=== PATIENT | female | born 1975 | race Caucasian/White ===

== ENCOUNTER 2022-04-29 13:03 | Emergency (ER) | payer OTHER, SELFPAY ==
[2022-04-29 13:12] VITALS: BP 140/76; PULSE 59; RESP 20; TEMP 36.9; O2SAT 100
--- NOTE | 2022-04-29 13:34 | ED.GENADULT ---
HPI - General Adult General Chief complaint: Headache Stated complaint: Headache x 4 days Time Seen by Provider: 04/29/22 13:34 Source: patient Mode of arrival: ambulatory Limitations: no limitations History of Present Illness HPI narrative: 46 yo F presents with c/o migraine for 4 days. Hx of migraines. Not any worse than usual migraines but OTC meds not helping. Taking migraine meds, ibuprofen and has tried sinus meds just to rule that out but denies congestion, ear pain, cough. Called ER to be treated for migraine but was told they are really busy. +nausea. no photophobia. All systems reviewed and negative except as noted above. Related Data Home Medications Medication Instructions Recorded Confirmed No Home Medications 04/29/22 04/29/22 Allergies Allergy/AdvReac Type Severity Reaction Status Date / Time No Known Allergies Allergy Verified 04/29/22 13:36 Review of Systems Review of Systems: CONSTITUTIONAL: Denies fever, chills, or sweats. EYES: Denies visual changes, redness, or discharge. ENT: Denies rhinorrhea, congestion, sore throat, or otalgia. CARDIOVASCULAR: Denies chest pain, palpitations, or edema. RESPIRATORY: Denies cough or dyspnea. GASTROINTESTINAL: Denies abdominal pain, vomiting, or diarrhea. Reports nausea. GENITOURINARY: Denies dysuria or hematuria. SKIN: Denies rash or itching. MUSCULOSKELETAL: Denies back pain, joint pain, or myalgia. NEUROLOGIC: Reports headache. Denies numbness, or weakness. PSYCHIATRIC: Denies anxiety or depression. All other systems reviewed are negative, except as documented in HPI. PMFSH Comments At time of signature, agree with nursing past medical, surgical, social and family history. There is no relevant family history pertinent to the presenting complaint. Exam Narrative: GENERAL: This is a well-nourished, well-developed patient, in no apparent distress. HEAD: normocephalic, atraumatic. EYES: PERRL. Sclera clear/white. Vision is grossly intact. EARS: External ears normal NOSE: External nose normal THROAT: Mucous membranes moist, posterior pharynx clear. NECK: Neck supple, non-tender without lymphadenopathy, masses or thyromegaly. CARDIOVASCULAR: Regular rate and rhythm without murmurs, gallops, or rubs. RESPIRATORY: Clear to auscultation. Breath sounds equal bilaterally. No wheezes, rales, or rhonchi. SKIN: warm, Dry, intact with no suspicious lesions or rash, good texture and turgor. NEURO: awake, alert, and oriented to person, place and time. There were no obvious focal neurologic abnormalities. EXTREMITIES: No joint tenderness, effusion, or edema noted. Course Course Level of Care: Express Care Visit Vital Signs Vital signs: Vital Signs Temperature 36.9 C 04/29/22 13:12 Pulse Rate 59 L 04/29/22 13:12 Respiratory Rate 04/29/22 13:12 Blood Pressure 140/76 04/29/22 13:12 Pulse Oximetry 100 04/29/22 13:12 Oxygen Delivery Room Air 04/29/22 13:12 Temperature 36.9 C 04/29/22 13:12 Pulse Rate 59 L 04/29/22 13:12 Respiratory Rate 20 04/29/22 13:12 Blood Pressure 140/76 04/29/22 13:12 Pulse Oximetry 100 04/29/22 13:12 Oxygen Delivery Room Air 04/29/22 13:12 reviewed Medical Decision Making MDM Narrative Medical decision making narrative: Patient is aware of diagnosis, understands and agrees to treatment plan. Anticipatory guidance given. Patient agrees to follow-up as directed and is aware of reasons to seek care at the emergency department. Portions of this record may have been created with voice recognition software Vital Signs Vital Signs: Vital Signs Temperature 36.9 C 04/29/22 13:12 Pulse Rate 59 L 04/29/22 13:12 Respiratory Rate 04/29/22 13:12 Blood Pressure 140/76 04/29/22 13:12 Pulse Oximetry 100 04/29/22 13:12 Oxygen Delivery Room Air 04/29/22 13:12 Temperature 36.9 C 04/29/22 13:12 Pulse Rate 59 L 04/29/22 13:12 Respiratory Rate 20 04/29/22 13:1
[2022-04-29] MEDS: KETOROLAC (*BKC) 60 MG/2 ML VIAL IM (13:51)
[2022-04-29] MEDS: ONDANSETRON HCL ODT 4 MG TABLET SUBLINGUAL (13:52)
[2022-04-29] MEDS: diphenhydrAMINE HCl CAP 25 MG CAPSULE 50 MG PO (13:52)
== END 2022-04-29 14:15 | disposition home or self-care (01) ==
PROVIDERS: Emergency Provider Nurse Practitioner Family; PCP Physician Assistant
DX: G43.909 Migraine, unspecified, not intractable, without status migrainosus (principal)
CPT/HCPCS: 96372; 99213; A9270; G0463; J1885

== ENCOUNTER 2022-12-06 09:52 | Emergency (ER) | payer OTHER, SELFPAY ==
--- NOTE | 2022-12-06 09:56 | ED.URI ---
HPI - URI/Sore Throat General Chief Complaint: Upper Respiratory Infection Stated Complaint: sore throat Time Seen by Provider: 12/06/22 10:00 Source: patient Mode of arrival: ambulatory Limitations: no limitations History of Present Illness HPI Narrative: Tayla is a 47-year-old female patient presenting to the clinic today with complaints of a sore throat and nasal congestion x2 days. She reports no fever or chills. No known exposure to anybody with strep. MD elicited complaint: sore throat and nasal congestion Related Data Home Medications Medication Instructions Recorded Confirmed ondansetron HCl 8 mg tablet 8 mg BID PRN Nausea 12/06/22 12/06/22 rizatriptan 10 mg disintegrating 10 mg BID PRN Migraine Headache 12/06/22 12/06/22 tablet sertraline 50 mg tablet 50 mg DAILY 12/06/22 12/06/22 Allergies Allergy/AdvReac Type Severity Reaction Status Date / Time No Known Allergies Allergy Verified 12/06/22 10:12 Review of Systems Review of Systems: Pertinent positives per HPI. Patient denies any fever, chills, rash, headache, visual changes, dizziness, cough, shortness of breath, chest pain, palpitations, nausea, vomiting, diarrhea, constipation, abdominal pain, or any urinary issues. PMFSH Comments At the time of my signature, I reviewed and agree with the nursing past medical, surgical, social, and family history. There is no relevant family history pertinent to the patient complaint. Exam Narrative: General: Well-developed, obese, in no apparent distress Head: Normocephalic, atraumatic Eyes: Pupils equally round and reactive to light bilaterally, EOM intact, sclera and conjunctive clear, no discharge, lids normal Ears: TMs intact and clear, ear canals clear, no drainage, grossly hearing normal. Nose: Nares patent, no discharge, no inflammation, no sinus tenderness. Mouth: Oral pharynx without lesions or masses, good dentition, MMM. Neck: Supple, trachea midline, no enlargement of anterior or posterior cervical nodes, no thyroid masses or goiter palpable. Cardio: Regular rate and rhythm, s1 and s2 normal, no murmur appreciated. Resp: Clear to auscultation bilaterally, no rhonchi, rales, wheezing or rubs Course Course Emergency Course: Portions of this record may have been created with voice recognition software. Level of Care: Express Care Visit Vital Signs Vital signs: Vital Signs Temperature 36.6 C 12/06/22 09:57 Pulse Rate 75 12/06/22 09:57 Respiratory Rate 16 12/06/22 09:57 Blood Pressure 117/73 12/06/22 09:57 Pulse Oximetry 98 12/06/22 09:57 Oxygen Delivery Room Air 12/06/22 09:57 Temperature 36.6 C 12/06/22 09:57 Pulse Rate 75 12/06/22 09:57 Respiratory Rate 16 12/06/22 09:57 Blood Pressure 117/73 12/06/22 09:57 Pulse Oximetry 98 12/06/22 09:57 Oxygen Delivery Room Air 12/06/22 09:57 Vital signs reviewed MDM - URI/Sore Throat MDM Narrative Medical decision making narrative: At the time of visit patient is resting comfortably on the exam table. Strep screen was obtained was positive in the clinic today. Will send in prescription for amoxicillin and supportive measures were discussed with the patient she voiced understanding discharge instructions agrees to treatment plan. Differential Diagnosis Differential diagnosis: Likely upper respiratory infection, otitis media, sinusitis, viral infection, bronchitis, influenza, pharyngitis and other (COVID) Lab Data Labs: Strep Screen Positive Group A Strep *(Reference Range: Negative)* Discharge Plan Discharge Clinical Impression: Strep sore throat Patient Disposition: Home, Self-Care Condition: Stable Instructions: Antibiotic Form, Strep Throat (ED) Additional Instructions: Take prescription medications only as prescribed-amoxicillin Change your toothbrush in 24 hours after initiation of antibiotic Increase fluids and
[2022-12-06 09:57] VITALS: BP 117/73; PULSE 75; RESP 16; TEMP 36.6; O2SAT 98
== END 2022-12-06 10:33 | disposition home or self-care (01) ==
PROVIDERS: Emergency Provider Nurse Practitioner Family; PCP Physician Assistant
DX: J02.0 Streptococcal pharyngitis (principal)
CPT/HCPCS: 87880; 99213; G0463

== ENCOUNTER 2023-11-30 14:09 | Emergency (ER) | payer OTHER, SELFPAY ==
[2023-11-30 14:15] VITALS: BP 137/84; PULSE 72; RESP 16; TEMP 36.4; O2SAT 99
--- NOTE | 2023-11-30 15:07 | ED.GENADULT ---
HPI - General Adult General Chief complaint: Upper Respiratory Infection Stated complaint: Headache/Nausea Time Seen by Provider: 11/30/23 15:00 Source: patient Mode of arrival: ambulatory Limitations: no limitations History of Present Illness HPI narrative: 48 year old female who presents to [facility] care with complaints of sinus congestion, sinus pressure , headache and some nausea for the past month. Patient reports that she has tried Sinex ,Robitussin, sinus spray, Mayra pot, Ibuprofen and Billie Selter for her symptoms without improvement. Patient reports that she does have a history of migraines but this headache feels different. Patient reports that she has Zofran at home that she takes with her migraine medication. Patient reports that she has not called her PCP to reports her symptoms or make appointment. MD complaint: nausea , headache, sinus pressure pain and congestion Onset (ago): month(s) (1) Location: head (frontal headache) Severity scale (1-10): 8 Treatments prior to arrival: other (sinus spray, sinex,Ibuprofen) Related Data Home Medications Medication Instructions Recorded Confirmed amlodipine 5 mg tablet 5 mg PO DAILY 11/30/23 11/30/23 sertraline 100 mg tablet 100 mg PO DAILY 11/30/23 11/30/23 Allergies Allergy/AdvReac Type Severity Reaction Status Date / Time No Known Allergies Allergy Verified 11/30/23 14:39 Review of Systems Review of Systems: CONSTITUTIONAL: Denies malaise, chills, sweats, or fever. EYES: Denies visual changes, redness, or discharge. ENT: Reports rhinorrhea, congestion, sinus pain,no otalgia and no sore throat. CARDIOVASCULAR: Denies chest pain, palpitations, or edema. RESPIRATORY: Reports cough.? Denies dyspnea. GASTROINTESTINAL: Denies abdominal pain,intermittent nausea, no vomiting, diarrhea SKIN: Denies rash or itching. MUSCULOSKELETAL: Denies myalgia. NEUROLOGIC: reports frontal headache. All systems reviewed & are unremarkable except as noted in HPI and below PMFSH Past Medical History Medical History Anxiety and depression Hx of migraines Hypertension Social History Social History (Updated 12/03/23 @ 07:51 by Mariangel Kendall NP) Smoking status: Current every day smoker Tobacco type: e-cigarettes/vaping Gender identity (if verbalized by the patient): Female Comments At time of signature, agree with nursing past medical, surgical, social and family history. There is no relevant family history pertinent to the presenting complaint Exam Narrative: GENERAL: Well-appearing, well-nourished, and in no acute distress. HEAD: Normocephalic EYES: PERRLA, conjunctivae clear ENT: Nares clear, turbinates edematous and erythematous, clear to light yellow discharge, sinus pressure and frontal headache.Mucous membranes moist. TM pearly thomas with dull light reflex bilaterally; no tragal tenderness. Oropharynx erythematous without lesions. Tonsils not enlarged and without exudate, no drooling, no hoarseness, no trismus, uvula midline. NECK: Supple. No lymphadenopathy CHEST: Clear to auscultation, breath sounds equal. No wheezing, rhonchi, rales, or stridor. No respiratory distress, speaks in full sentences.SAO2 99% on room air HEART: Regular rate and rhythm. No murmur heard. SKIN: Warm, dry, no rash. NEURO: Alert and oriented x3. PSYCH: Normal mood and affect Course Course Emergency Course: Patient is aware of diagnosis, understands and agrees to treatment plan.? Anticipatory guidance given.? Patient agrees to follow-up as directed and is aware of reasons to seek care at the emergency department. Portions of this record may have been created with voice recognition software Level of Care: Express Care Visit Vital Signs Vital signs: Vital Signs Temperature 36.4 C L 11/30/23 14:15 Pulse Rate 72 11/30/23 14:15 Respiratory Rate 16 11/30/23 14:15 Blood Pressure 1
== END 2023-11-30 15:35 | disposition home or self-care (01) ==
PROVIDERS: Emergency Provider Registered Nurse; PCP Physician Assistant
DX: J32.9 Chronic sinusitis, unspecified (principal); F17.290 Nicotine dependence, other tobacco product, uncomplicated; I10 Essential (primary) hypertension; F41.9 Anxiety disorder, unspecified; F32.A Depression, unspecified
CPT/HCPCS: 99213; G0463

== ENCOUNTER 2024-01-11 13:19 | Emergency (ER) | payer OTHER, SELFPAY ==
[2024-01-11 13:28] VITALS: BP 140/90; RESP 16; TEMP 36.7; O2SAT 97
--- NOTE | 2024-01-11 13:33 | ED.URI ---
HPI - URI/Sore Throat General Chief Complaint: Upper Respiratory Infection Stated Complaint: Sore Throat History of Present Illness HPI Narrative: Patient presents with sore throat. No trouble swallowing no drooling patient reports fever but denies any body aches. Does have nasal congestion has not taking anything [id number]. Related Data Home Medications Medication Instructions Recorded Confirmed amlodipine 5 mg tablet 5 mg PO DAILY 11/30/23 11/30/23 sertraline 100 mg tablet 100 mg PO DAILY 11/30/23 11/30/23 Allergies Allergy/AdvReac Type Severity Reaction Status Date / Time No Known Allergies Allergy Verified 01/11/24 13:27 Review of Systems Review of Systems: CONSTITUTIONAL: Denies chills, or sweats. Reports fever and generalized body aches EYES: Denies visual changes, redness, or discharge. ENT: Denies otalgia. Reports nasal congestion runny nose and sore throat CARDIOVASCULAR: Denies chest pain, palpitations, or edema. RESPIRATORY: Denies dyspnea. Reports occasional cough GASTROINTESTINAL: Denies abdominal pain, nausea, vomiting, or diarrhea. GENITOURINARY: Denies dysuria or hematuria. SKIN: Denies rash or itching. MUSCULOSKELETAL: Denies back pain, joint pain, or myalgia. Reports generalized body aches NEUROLOGIC: Denies headache, numbness, or weakness. PSYCHIATRIC: Denies anxiety or depression. [facility] Past Medical History Medical History Anxiety and depression Hx of migraines Hypertension Social History Social History (Updated 12/03/23 @ 07:51 by Mariangel Kendall NP) Smoking status: Current every day smoker Tobacco type: e-cigarettes/vaping Gender identity (if verbalized by the patient): Female Comments At time of signature, agree with nursing past medical, surgical, social and family history. There is no relevant family history pertinent to the presenting complaint Exam Narrative: The patient is a well-developed, well-nourished in no acute distress. SKIN: Skin is warm and dry without erythema, swelling or exudate. There is good turgor. No tenting. HEAD: Atraumatic. Normocephalic. No temporal or scalp tenderness. EYES: Moist and bright. Sclera and conjunctivae normal. No discharge. PERRLA. Extraocular motions intact. Gross visual acuity intact. EARS: Pinna is normal shape and contour. Clear external auditory canals. TM pearly lee with good cone of light, no erythema or suppuration. Bilateral cerumen noted no gross hearing deficit. NOSE: pink, moist mucosa with good air movement. Clear rhinorrhea without nasal flaring. Septum midline. Mouth: moist mucous membranes. THROAT; mild erythema noted to posterior oropharynx with moderate postnasal drainage. Without exudate or ulceration.. Uvula midline. Normal movement of soft palate. Mild pharyngeal erythema no trismus able to open mouth fully no exudate NECK: Supple and nontender with full range of motion without discomfort. No meningeal signs. LUNGS: Equal and bilateral breath sounds without wheezes, rales or rhonchi. CHEST: The chest wall is without retractions or use of accessory muscles. HEART: Has a regular rate and rhythm without murmur, gallops, click or rub. ABDOMEN: Soft, nontender with positive active bowel sounds. No rebound tenderness. EXTREMITIES: Without cyanosis, clubbing or edema. Equal 2+ distal pulses and 2 second capillary refill noted. NEUROLOGIC: alert, active, . The patient moves all extremities with normal muscle strength. Normal muscle tone is noted. Normal coordination is noted. NO focal neurological findings noted. Course Course Level of Care: Express Care Visit Discharge Plan Discharge Clinical Impression: Pharyngitis, Strep pharyngitis Patient Disposition: Home, Self-Care Condition: Stable Instructions: Antibiotic Form, Strep Throat (DC) Additional Instructions: .strep #1 Please take your antibiotic completely #2 Wash your hands o
== END 2024-01-11 13:58 | disposition home or self-care (01) ==
PROVIDERS: Emergency Provider Nurse Practitioner Family; PCP Physician Assistant
DX: J02.0 Streptococcal pharyngitis (principal); I10 Essential (primary) hypertension; F41.9 Anxiety disorder, unspecified; F32.A Depression, unspecified; F17.290 Nicotine dependence, other tobacco product, uncomplicated
CPT/HCPCS: 87880; 99213; G0463

== ENCOUNTER 2024-10-26 10:17 | Emergency (ER) | payer OTHER, SELFPAY ==
--- NOTE | ~2024-10-26 | XR_ITS ---
Clinical Indication: Cough PA and lateral views of the chest: Comparison: None Findings: The lungs are clear, without evidence of focal consolidation or pleural effusion. Cardiome diastinal silhouette is within normal limits. Bones and soft tissues are unremarkable. Impression: Normal chest. Reviewed, dictated and finalized at location . [facility] Impression: Normal chest.
[2024-10-26 10:22] VITALS: BP 105/64; PULSE 76; RESP 20; TEMP 36.1; O2SAT 98
[2024-10-26 10:54] LABS: EDCOVIDSCREEN Negative (Negative); EDINFLUASCREEN Negative (Negative); EDINFLUBSCREEN Negative (Negative)
--- NOTE | 2024-10-26 11:19 | ED.GENADULT ---
HPI - General Adult General Chief complaint: Upper Respiratory Infection Stated complaint: Congestion/Chest Congestion/Cough Source: patient Mode of arrival: ambulatory Limitations: no limitations History of Present Illness HPI narrative: Patient presents for evaluation of sick symptoms for the last 11 days. Symptoms include sinus congestion, cough, chest congestion, GUERRERO, wheezing and sore throat that she attributes to coughing. No fever, chills, nausea, vomiting or diarrhea. She does vape. Her grandchildren have been sick as of late. She has tried mucinex, dayquil and nyquil for her symptoms but symptoms persist/ Related Data Home Medications ?Medication ?Instructions ?Recorded ?Confirmed ?Last Taken ?Type amlodipine 5 mg tablet 5 mg PO DAILY 11/30/23 11/30/23 Unknown History sertraline 100 mg tablet 100 mg PO DAILY 11/30/23 11/30/23 Unknown History Allergies Allergy/AdvReac Type Severity Reaction Status Date / Time No Known Allergies Allergy Verified 10/26/24 10:40 Review of Systems Review of Systems: CONSTITUTIONAL: Denies fever, chills, or sweats. EYES: Denies visual changes, redness, or discharge. ENT: Reports sinus congestion, and sore throat that she attributes to coughing. Denies otalgia. CARDIOVASCULAR: Denies chest pain, palpitations, or edema. RESPIRATORY: Reports cough, wheezing, dyspnea on exertion. GASTROINTESTINAL: Denies abdominal pain, nausea, vomiting, or diarrhea. GENITOURINARY: Denies dysuria or hematuria. SKIN: Denies rash or itching. MUSCULOSKELETAL: Denies back pain, joint pain, or myalgia. NEUROLOGIC: Denies headache, numbness, dizziness, or weakness. PSYCHIATRIC: Denies anxiety or depression. [facility] Past Medical History Medical History Hypertension Hx of migraines Anxiety and depression Surgical History Surgical History No pertinent past surgical history Family History Family History Mother Family history non-contributory Social History Social History Smoking status: Current every day smoker Tobacco type: e-cigarettes/vaping Living arrangements: with family Gender identity (if verbalized by the patient): Female Sexual Orientation (if Verbalized by the Patient): Straight or Heterosexual Spiritual care concerns: No Exam Narrative: GENERAL: Well-appearing, well-nourished, and in no acute distress. HEAD: Normocephalic, atraumatic. EYES: PERRLA and EOMI. ENT: Nares clear, no rhinorrhea or epistaxis. Mucous membranes moist. Oropharynx without tonsillar hypertrophy exudate or other lesions. Bilateral TMs pearly thomas nonbulging NECK: Supple. No adenopathy or masses. No carotid bruits or JVD CHEST: Rales noted bilaterally. Cough present on exam. HEART: Regular rate and rhythm. No murmur heard. Normal peripheral pulses. ABDOMEN: Soft, nontender, nondistended, normal active bowel sounds. EXTREMITIES: Normal range of motion. No edema. SKIN: Warm, dry, no rash. NEURO: No focal deficits. Alert and oriented x3. PSYCH: Normal mood and affect. Course Course Emergency Course: This is a 49-year-old female who presented for evaluation of sick symptoms. COVID and influenza negative. Chest x-ray normal. Based upon duration of symptoms, patient meets criteria for bacterial sinusitis. Will discharge with Augmentin. Prednisone and albuterol for wheezing. Follow-up with primary provider. Go to the ER for worsening symptoms. Patient in agreement with plan care. Level of Care: Express Care Visit Vital Signs Vital signs: Vital Signs Temperature 36.1 C L 10/26/24 10:22 Pulse Rate 76 10/26/24 10:22 Respiratory Rate 20 10/26/24 10:22 Blood Pressure 105/64 10/26/24 10:22 Pulse Oximetry 98 10/26/24 10:22 Oxygen Delivery Room Air 10/26/24 10:22 Temperature 36.1 C L 10/26/24 10:22 Pulse Rate 76 10/26/24 10:22 Respiratory Rate 20 10/26/24 10:22 Blood Pressure 105/64 10/26/24 10:22 Pulse Oximetry 98 10/26/24 10:22 Oxygen Delivery Room Air 10/26/24 10:22 Medical Decision Making Vital Signs Vital Signs: Vital Signs Temperature 36.1 C L 10/26/24 10:22 Pulse Rate 76 12/31/24 10:22 Respiratory Rate 20 10/26/24 10:22 Blood Pressure 105/64 10/26/24 10:22 Pulse Oximetry 98 10/26/24 10:22 Oxygen Delivery Room Air 10/26/24 10:22 Temperature 36.1 C L 10/26/24 10:22 Pulse Rate 76 10/26/24 10:22 Respiratory Rate 20 10/26/24 10:22 Blood Pressure 105/64 10/26/24 10:22 Pulse Oximetry 98 10/26/24 10:22 Oxygen Delivery Room Air 10/26/24 10:22 Lab Data Labs: Lab Results 10/26/24 Range/Units 10:30 POC Influenza A Ag Negative (Negative) POC Influenza B Ag Negative (Negative) POC SARS CoV-2 Ag Negative (Negative) Discharge Plan Discharge Clinical Impression: Sinusitis Patient Disposition: Home, Self-Care Condition: Stable Instructions: Antibiotic Form, Sinusitis (ED) Patient Language: Guyanese Prescriptions: New amoxicillin-pot clavulanate 875-125 mg tablet 1 tablet PO Q12H Qty: 20 0RF albuterol sulfate 90 mcg/actuation HFA aerosol inhaler 2 puff inhalation QID PRN (Reason: shortness of breath or wheezing) Qty: 8.5 0RF prednisone 50 mg tablet 50 mg PO DAILY Qty: 5 0RF No Action amlodipine 5 mg tablet 5 mg PO DAILY sertraline 100 mg tablet 100 mg PO DAILY Follow-up/Referrals: Kleber Van MD [Physician] - Time of Disposition: 11:42
--- OUTSIDE RECORDS SUMMARY | 2024-11-02 22:38 | XMS_ITS | Clinical Summary ---
Author Organization [facility] Address [address] [place] [address] Phone Care Team Providers Care Hand I Blocker Name Role Phone Grecia Solis APRN, LEYDI Primary Care P rovider Tonja Yoo APRN, LEYDI Unavailable Allergies No known active allergies Medications lisinopril-hydroC HLOROthiazide (PRINZIDE, ZESTORETIC) 10-12.5 MG TabletIndications :Essential hypertension Take 1 Tablet by mouth daily. 90 Tablet 3 4 Active Vitamin D-Vitamin K (VITAMIN K2-VITAMIN D3 PO) Take by mouth daily. Active sertraline (ZOLOFT) 100 MG TabletIndications :Anxiety and depression Take 0.5 Tablets by mouth daily. 90 Tablet 3 4 Active hydrOXYzine (ATARAX) 25 MG TabletIndications :Primary insomnia TAKE 1 TABLET BY MOUTH EVERY NIGHT NEEDED FOR SLEEP 90 Tablet 1 4 Active amLODIPine (NORVASC) 10 MG TabletIndications :Essential hypertension Take 1 Tablet by mouth daily. 90 Tablet 1 4 Active Active Problems Problem Noted Date Diagnosed Date Subacute cough 07/13/2024 Daytime sleepiness 04/09/2024 Suspected sleep apnea 04/09/2024 Restless sleeper 04/09/2024 Family History Medical History Relation Name Comments Hypertension Paternal Grandmother Relation Name Status Comments Paternal Grandmother Social History Tobacco Use Types Packs/Day Years Used Date Smoking Tobacco: Former Cigarettes Smokeless Tobacco: Never Tobacco Cessation:Counseling Given: Not Answered Alcohol Use Standard Drinks/Week Comments Yes 0 (1 standard drink = 0.6 oz pur e alcohol) Rarely [facility] Utilities Answer Date Recorded In the past 12 months has th e electric, gas, oil, or water company threatened to shut off services in your home? No 02/08/2024 Social Connection and Isolat ion Panel [NHANES] Answer Date Recorded In a typical week, how many times do you talk on the phone with family, friends, or neighbors? More than three times a week 02/08/2024 How often do you get togethe r with friends or relatives? Twice a week 02/08/2024 How often do you attend [facility] or mandaeism services? Never 02/08/2024 Do you belong to any clubs o r organizations such as mosque groups, unions, fraternal or athletic groups, or school groups? No 02/08/2024 How often do you attend meet ings of the clubs or organizations you belong to? Patient declined 02/08/2024 Are you , , di vorced, , never , or living with a partner? Patient declined 02/08/2024 AUDIT-C Answer Date Recorded Q1: How often do you have a drink containing alc ohol? Monthly or less 02/08/2024 Q2: How many drinks containi ng alcohol do you have on a typical day when you are drinking? 1 or 2 02/08/2024 Q3: How often do you have si x or more drinks on one occasion? Less than monthly 02/08/2024 Overall Financial Resource Strain (CARDIA) Answe r Date Recorded How hard is it for you to pa y for the very basics like food, housing, medical care, and heating? Somewhat hard 02/08/2024 [facility] - Occupational Stress Questionnaire Answer Date Recorded Do you feel stress - tense, restless, nervous, or anxious, or unable to sleep at night because your mind is troubled all the time - these days? Very much 02/08/2024 Exercise Vital Sign Answer Date Recorde d On average, how many days pe r week do you engage in moderate to strenuous exercise (like a brisk walk)? 4 days 02/08/2024 On average, how many minutes do you engage in exercise at this level? 30 min 02/08/2024 Hunger Vital Sign Answer Date Recorded Within the past 12 months, y ou worried that your food would run out before you got the money to buy more. Patient declined Within the past 12 months, t he food you bought just didn't last and you didn't have money to get more. Patient declined PRAPARE - Transportation Answer Date Re corded In the past 12 months, has l ack of transportation kept you from medical appointments or from getting medications? No 01/25 In the past 12 months, has l ack of transportation kept you from meetings, work, or from getting things needed for daily living? No 02/08/2024 Housing Stability Vital Sign Answer Richar e Recorded In the last 12 months, was t here a time when you were not able to pay the mortgage or rent on time? No 02/08/2024 In the last 12 months, how many places have you lived? 1 02/08/2024 In the last 12 months, was t here a time when you did not have a steady place to sleep or slept in a fdc (including now)? No 02/08/2024 Comments No Sex and Gender Information Value Date Recorded Sex Assigned at Not on file Legal Sex Female 7:18 PM CDT Gender Identity Not on file Sexual Orientation Not on file Last Filed Vital Signs Vital Sign Reading Time Taken Comments Blood Pressure 96/76 07/13/2024 4:06 PM CDT Pulse 65 07/13/2024 4:06 PM CDT Temperature 36.7 ??C (98.1 ??F) 07/13/2024 4:06 PM CD T Respiratory Rate 20 07/13/2024 4:06 PM CDT Oxygen Saturation 97% 07/13/2024 4:06 PM CDT Inhaled Oxygen Concentration - - Weight 135.6 kg (299 lb) 07/13/2024 4:06 PM CDT Height 175.3 cm (5' 9 ) 07/13/2024 4:06 PM CDT Body Mass Index 44.15 07/13/2024 4:06 PM CDT Plan of Treatment Upcoming Encounters Date Type Department Care Team (Late st Contact Info) Description 11/08/2024 3:15 PM PRINCIPAL PLANNER Office Visit [facility] - [place] [address] [place] [address] Grecia Solis APRN, GMAT TUTOR [address] [place] [address] Health Maintenance Due Date Last Done Comments TdaP Immunization 1973 Hepatitis B Immunization (1 of 3 - 19+ 3-dose series) 1992 HPV/Cotest 2003 Colonoscopy 2018 Immunochemical Fecal Occult Blood 2023 Pneumococcal Immunization (5 0+ years) (1 of 1 - PCV) 2023 Zoster Immunization (1 of 2) 2023 Influenza Immunization (#1) 2024 SARS-COV-2 Immunization ( - season) 2024 Mammogram 03/05/2026 03/05/2024, 02/10/2024 Cologuard 02/24/2027 02/25/2024 Colorectal Cancer Screening 02/24/2027 Cervical Cancer Screening (CCS) 04/27/2027 Pap Smear 04/27/2027 04/27/2024 Respiratory Syncytial Virus (RSV) Immunization (Adult) (1 - 1-dose 75+ series) 2048 Discussion re Starting/Frequency of Mammograms Discontinued 03/05/2024, 02/10/2024 Hepatitis C Virus (HCV) Screening Completed 03/12/2024 Meningococcal Immunization (ACWY) Aged Out No longer eligible based on patient's age to complete this topic Rotavirus Immunization Aged Out No lo nger eligible based on patient's age to complete this topic Procedures Procedure Name Priority Date/Time Associated Diagnosis Comments PATHOLOGY CYTOLOGY FIRE CONTROL TECHNICIAN G Routine 04/27/2024 3:48 PM CDT Encounter for well woman exam with routine gynecological exam HEPATITIS C ANTIBODY Routine 03/12/2024 7:46 AM CDT Preventative health care (Adult) ITALO DIAG BILATERAL DIGITAL W CAD W RAJI Routine 03/05/2024 1:48 PM CDT Abnormal mammogram COLOGUARD Routine 02/25/2024 5:30 PM CDT Colon cancer screening from Last 3 Months or Most Recently Relevant to Health Maintenance Results * PATHOLOGY CYTOLOGY FIRE CONTROL TECHNICIAN G (04/27/2024 3:48 PM CDT) SPECIMEN ADEQUACY Unsatisfactory for evaluation due to scant squamous component. Endocervical/transf ormation zone component is absent. 05/06/2024 4:[address] [facility] DESCRIPTIVE DIAGNOSIS UNSATISFACTORY FOR INTERPRETATION. 05/06/2024 4:[address] [facility] Automated Examination Analysis of this sample has been assisted by an automated imaging and review system ([employer] System, [employer] [facility], [place], [place]). This case is further evaluated and finalized by a fisher seal and/or pathologist. 05/06/2024 4:[address] [facility] Disclaimer The PAP smear is a screening test designed to detect cancerous or precancerous cells of the uterine cervix. It is one of the best means available for detection of cervical cancer but still carries an inherent false-negative rate. The consequences of a false-negative PAP result can be minimized by adhering to current screening guidelines. The following are general guidelines recommended by the ACS, ASCP, ASCCP, and ACOG: PAP testing is recommended every three years for women 21-29, Co-Testing , a PAP test in conjunction with an HPV (Human Papillomavirus) test for women ages 30-65, and no PAP or HPV testing for women under the age of 21 or older than 65 unless clinically indicated. 05/06/2024 4:[address] [facility] Case Report Gynecologic Cytology Report ? Case: [id number] ? Authorizing Provider: ??Richard Ferguson MD ?Collected: ? 04/27/2024 03:48 PM ? Ordering Location: ? [facility] - ?Received: ?04/27/2024 03:48 PM ? Obstetrics & Gynecology - ? Stan ? First Screen: ?Patel, Julia ? Rescreen: ?Arely Holt N ? Specimen: ?TP Screen, Cervix/Endocervix ? 05/06/2024 4:05 PM CDT [facility] Other (Cervix/Endocerv ix) Non-Phlebotomy Collection / Unknown 04/27/2024 3:48 PM CDT 04/27/2024 3:48 PM CDT us Richard Ferguson MD PATHOLOGY/CYTOLOGY ORDERABLES Final Result Performing Organization Address [facility] de Phone Number [facility] [address] [place] [address], [place] * HEPATITIS C ANTIBODY (03/12/2024 7:46 AM CDT) hepatitis C antibody 0.10 <1 S/CO 03/12/2024 9:[address] [facility] Comment: Signal/Cutoff ratio ??< 0.79 is Nondetected Signal/Cutoff ratio 0.80-0.99 is Grayzone Signal/Cutoff ratio > 0.99 is Detected Supplemental assays are recommended if signal/cutoff ratio is >/=1.00. ??Signal/cutoff ratio result >/= 5.00 is 97% predictive of positivity for recombinant immunoblot assay (RIBA) and will be reported to the [place] Department of Public Health as required. Blood Venipuncture / Unknown 03/12/2024 7:46 AM CDT 03/12/2024 7:46 AM CDT Grecia Solis APRN, GMAT TUTOR CHEMISTRY ORDER ESTELLA Final Result Performing Organization Address [facility] de Phone Number [facility] [address] [place] [address], [place] * ITALO DIAG BILATERAL DIGITAL W CAD W RAJI (03/05/2024 1:48 PM CDT) Anatomical Region Laterality Modality breast Bilateral Mammography 03/05/2024 12:5 9 PM CDT Narrative 03/05/2024 2:45 PM CDT - ITALO DIAG BILATERAL DIGITAL W CAD W RAJI - ITALO US BREAST LIMITED ARVIN BILATERAL DIGITAL DIAGNOSTIC MAMMOGRAM 3D/2D WITH CAD WITH MEDIOLATERAL MEDIOLATERAL OBLIQUE CRANIOCAUDAL SPOT COMPRESSION AND TARGETED BILATERAL ULTRASOUND: 03/05/2024 The study was acquired using digital technology and interpreted from soft copy. Current study was also evaluated with ICAD version 7.2. 2D digital mammographic views, as well as 3D digital tomosynthesis were performed in the CC and MLO projections. ?? CLINICAL: Diagnostic study. Patient returns for additional imaging over suspected masses in both breasts. Sister with premenopausal breast cancer. ?? COMPARISONS: Comparison is made to exam dated: ??02/10/[address] [facility]. ?? BREAST TISSUE:There are scattered fibroglandular densities in both breasts. ?? FINDINGS: ?? DIAGNOSTIC BILATERAL MAMMOGRAM Spot compression cc, spot compression MLO and full field 90 degree tomographic images were performed. ??The focal asymmetries noted bilaterally are confirmed on additional views without spiculation or suspicious associated microcalcifications. ?? TARGETED BILATERAL BREAST ULTRASOUND Targeted RIGHT breast ultrasound was performed in the region of interest. ??At the 5 o'clock position 3 cm from the nipple is a lobulated circumscribed lesion with a hyperechoic notch. ??There is a small round nodule adjacent or abutting the main lesion. ??This has the appearance of 2 adjacent intramammary lymph nodes. ??The more dominant lesion measures ??8 mm x 5 mm x 4 mm. ??No definite color flow is documented. ??This correlates with the mammographic finding in size shape and position and is probably benign. Targeted LEFT breast ultrasound was performed in the region of interest. ??At the 7 o'clock position 4 cm from the nipple is an oval hypoechoic lesion. ??This measures 6 mm x 4 mm x 3 mm. ??It is parallel with the skin. ??There may be posterior acoustical enhancement. ??There is no evidence of color flow. ??This correlates with the mammographic finding. ??This may represent a collapsing cyst or dilated duct and is probably benign. ?? IMPRESSION: OVERALL STUDY BIRADS: 3 PROBABLY BENIGN Bilateral breast lesions are probably benign. A follow-up mammogram and an ultrasound in 6 months is recommended to demonstrate stability. ?? The results and recommendations were discussed with the patient. Electronically signed by: Abimbola White M.D. ? ab/:03/05/2024 14:28:59 ?? Grand Jury Deputy Sheriff(s): Leigha ?? Charles, RT(R)(M), [facility]; Gabbi ??LOY Gonzales, [facility] letter sent: Birad 3 Followup ?? Reading location: [facility] STUDY BIRADS: 3 Probably benign Procedure Note Abimbola White MD - 03/05/2024 - ITALO DIAG BILATERAL DIGITAL W CAD W RAJI - ITALO US BREAST LIMITED ARVIN BILATERAL DIGITAL DIAGNOSTIC MAMMOGRAM 3D/2D WITH CAD WITH MEDIOLATERAL MEDIOLATERAL OBLIQUE CRANIOCAUDAL SPOT COMPRESSION AND TARGETED BILATERAL ULTRASOUND: 03/05/2024 The study was acquired using digital technology and interpreted from soft copy. Current study was also evaluated with Simplilearn version 7.2. 2D digital mammographic views, as well as 3D digital tomosynthesis were performed in the CC and MLO projections. CLINICAL: Diagnostic study. Patient returns for additional imaging over suspected masses in both breasts. Sister with premenopausal breast cancer. COMPARISONS: Comparison is made to exam dated: 02/10/2024 [facility]. BREAST TISSUE:There are scattered fibroglandular densities in both breasts. FINDINGS: DIAGNOSTIC BILATERAL MAMMOGRAM Spot compression cc, spot compression MLO and full field 90 degree tomographic images were performed. The focal asymmetries noted bilaterally are confirmed on additional views without spiculation or suspicious associated microcalcifications. TARGETED BILATERAL BREAST ULTRASOUND Targeted RIGHT breast ultrasound was performed in the region of interest. At the 5 o'clock position 3 cm from the nipple is a lobulated circumscribed lesion with a hyperechoic notch. There is a small round nodule adjacent or abutting the main lesion. This has the appearance of 2 adjacent intramammary lymph nodes. The more dominant lesion measures 8 mm x 5 mm x 4 mm. No definite color flow is documented. This correlates with the mammographic finding in size shape and position and is probably benign. Targeted LEFT breast ultrasound was performed in the region of interest. At the 7 o'clock position 4 cm from the nipple is an oval hypoechoic lesion. This measures 6 mm x 4 mm x 3 mm. It is parallel with the skin. There may be posterior acoustical enhancement. There is no evidence of color flow. This correlates with the mammographic finding. This may represent a collapsing cyst or dilated duct and is probably benign. IMPRESSION: OVERALL STUDY BIRADS: 3 PROBABLY BENIGN Bilateral breast lesions are probably benign. A follow-up mammogram and an ultrasound in 6 months is recommended to demonstrate stability. The results and recommendations were discussed with the patient. Electronically signed by: Abimbola White M.D. ab/:03/05/2024 14:28:59 Grand Jury Deputy Sheriff(s): Leigha Soto, (R)(M), [facility]; Gabbi Gonzales RDMS OBBRIANNA, [facility] letter sent: Birad 3 Followup Reading location: [facility] OVERALL STUDY BIRADS: 3 Probably benign Grecia Solis APRN, CNP IM MAMMO ORDER ESTELLA Final Result * COLOGUARD (02/25/2024 5:30 PM CDT) Cologuard Negative Negative [facility] Comment: NEGATIVE TEST RESULT. A negative Cologuard result indicates a low likelihood that a colorectal cancer (CRC) or advanced adenoma (adenomatous polyps with more advanced pre-malignant features) ??is present. The chance that a person with a negative Cologuard test has a colorectal cancer is less than 1 in 1500 (negative predictive value >99.9%) or has an ??advanced adenoma is less than ?? 5.3% (negative predictive value 94.7%). These data are based on a prospective cross-sectional study of 10,000 individuals at average risk for colorectal cancer who were screened with both Cologuard and colonoscopy. (Goran Sanders al, N Engl J Med 2014;370(14):0378-0182) The normal value (reference range) for this assay is negative. COLOGUARD RE-SCREENING RECOMMENDATION: Periodic colorectal cancer screening is an important part of preventive healthcare for asymptomatic individuals at average risk for colorectal cancer. ??Following a negative Cologuard result, the [place] [employer] and U.S. Multi-Society Task Force screening guidelines recommend a Cologuard re-screening interval of 3 years. References: [place] [employer] Guideline for Colorectal Cancer Screening: https://www.cancer.org/cancer/rlvdg-rbugfw-uovhes/ynflxozdq-fhnextfqf-hvllcvi/ acs-recommendations.html.; Eric DK, Caroline CR, Afshin WangK, Colorectal Cancer Screening: Recommendations for Physicians and Patients from the U.S. Multi-Society Task Force on Colorectal Cancer Screening , Am J Gastroenterology 2017; 112:1045-2867. TEST DESCRIPTION: Composite algorithmic analysis of stool DNA-biomarkers with hemoglobin immunoassay. ?? Quantitative values of individual biomarkers are not reportable and are not associated with individual biomarker result reference ranges. Cologuard is intended for colorectal cancer screening of adults of either sex, 45 years or older, who are at average-risk for colorectal cancer (CRC). Cologuard has been approved for use by the U.S. FDA. The performance of Cologuard was established in a cross sectional study of average-risk adults aged 50-84. Cologuard performance in patients ages 45 to 49 years was estimated by sub-group analysis of near-age groups. Colonoscopies performed for a positive result may find as the most clinically significant lesion: colorectal cancer [4.0%], advanced adenoma (including sessile serrated polyps greater than or equal to 1cm diameter) [20%] or non- advanced adenoma [31%]; or no colorectal neoplasia [45%]. These estimates are derived from a prospective cross-sectional screening study of 10,000 individuals at average risk for colorectal cancer who were screened with both Cologuard and colonoscopy. (Goran Sanders al, N Engl J Med 2014;370(14):8577-7644.) Cologuard may produce a false negative or false positive result (no colorectal cancer or precancerous polyp present at colonoscopy follow up). A negative Cologuard test result does not guarantee the absence of CRC or advanced adenoma (pre-cancer). The current Cologuard screening interval is every 3 years. ([place] [employer] and U.S. Multi-Society Task Force). Cologuard performance data in a 10,000 patient pivotal study using colonoscopy as the reference method can be accessed at the following location: www.Lift/results. Additional description of the Cologuard test process, warnings and precautions can be found at www.Givesparkrd.com. Stool 02/25/2024 5:30 PM CDT 02/28/2024 6:54 AM CDT Grecia Solis APRN, CNP BODY FLUIDS & S TOOLS ORDERABLES Final Result [facility] [address] [place] [address], [place] [phone] [employer] [address] [place] [address] from Last 3 Months or Most Recently Relevant to Health Maintenance Insurance [facility] TPL on file Care Teams Hand I Blocker Relationship Specialty Start Date End Date Grecia Solis APRN, CNP [address] [place] [address] PCP - General Advanced Practice Nurse 02/09/24 Tonja Yoo APRN, CNP [address] [address] Nurse Practitioner Advanced Practice Nurse 04/09/24
--- OUTSIDE RECORDS SUMMARY | 2024-11-02 22:39 | XMS_ITS | Encounter Summary ---
Author Organization [facility] Address [address] [place] [address] Phone Care Team Providers Care Rhythmic Gymnastics Coach Name Role Phone Grecia Solis APRN, CNP Primary Care P rovider Tonja Yoo APRN, CNP Unavailable [phone] Reason for Referral * Consult, Test & Initiate Treatment (Routine) - Closed Specialty Diagnoses / Procedures Referred By eCe ann Referred To Contact Diagnoses Suspected sleep apnea Daytime sleepiness Restless sleeper Tonja Yoo APRN, LEYDI [address] [address] Phone: tel: fax: [facility] [address] [place] [address] Phone: tel: fax: Referral ID Status Reason Start Date Expiration Date Visits Re quested Visits Authorized [id number] Closed 04/09/2024 1 1 Scheduling Instructions Tayla is being referred for EDS. Please contact patient for scheduling questions or concerns. Reason for Visit * Reason Comments Sleep Apnea * Consult, Test & Initiate Treatment (Routine) - Closed Specialty Diagnoses / Procedures Referred By Cee ann Referred To Contact Diagnoses Suspected sleep apnea Grecia Solis APRN, CNP [address] [place] [address] Phone: tel: fax: [facility] [address] [place] [address] Phone: tel: fax: Referral ID Status Reason Start Date Expiration Date Visits Re quested Visits Authorized [id number] Closed 03/18/2024 1 1 Encounter Details Date Type Department Care Team (Late st Contact Info) Description 04/09/2024 3:00 PM CDT Telemedicine [facility]ology [facility] Sleep Medicine [facility] [address] [place] [address] Tonja Yoo APRN, DIRECTOR RECREATION #[address] [address] Suspected sleep apnea (Primary Dx); Daytime sleepiness; Restless sleeper Social History Tobacco Use Types Packs/Day Years Used Date Smoking Tobacco: Never Smokeless Tobacco: Never Alcohol Use Standard Drinks/Week Comments Not Currently 0 (1 standard drink = 0.6 oz pur e alcohol) [facility] Utilities Answer Date Recorded In the past 12 months has e [employer], gas, oil, or water [employer] threatened to shut off services in your [...] week 02/08/2024 How often do you attend chur ch or quaker services? Never 02/08/2024 Do you belong to any clubs o r organizations such as yazidism groups, unions, fraternal or athletic groups, or [...] medical care, and heating? Somewhat hard 02/08/2024 [facility] of Occupat ional Health - Occupational Stress [...] place to sleep or slept in a longterm (including now)? No 02/08/2024 Comments No Sex and Gender Information Value Date Recorded Sex Assigned at Not on file Legal Sex Female 7:18 PM CDT Gender Identity Not on file Sexual Orientation Not on file documented as of this encounter Progress Notes * Tonja Yoo, DEANGELO, LEYDI - 04/09/2024 3:00 PM CDT Before the initiation of today's documented service, the patient or patient guardian verbally consented to virtual/remote treatment. More than 50% of the listed time was spent counseling or coordinating care. The topics discussed are listed in the assessment and plan in this note. I spent the following number of minutes on the day of service reviewing care, coordinating care, and in direct audio and video communication with the patient: 10 minutes. This visit was performed when I was physically located at home. The patient was located at home. HPI: Tayla Johnson is a 48 y.o. female evaluated today for SEBASTIAN. Patient reports a significant history of waking up feeling unrested and EDS. Denies any snoring or witnessed episodes of apnea. Does have history of HTN. Sleep schedule: On all days, goes to bed at 10:30 p.m., falls asleep within 30min or more and wakes up at 5:30-6 a.m.. Patient wakes up 2-3 times due to being restless and to use bathroom and is able to go back to sleep in 30 min or less. Patient does not take naps. She is using Atarax nightly with reported benefit. Drinks 1 cup of coffee per day other than this no excessive caffeine. ESS=0 Current Outpatient Medications: amLODIPine (NORVASC) 10 MG Tablet hydrOXYzine (ATARAX) 25 MG Tablet lisinopril-hydroCHLOROthiazide (PRINZIDE, ZESTORETIC) 10-12.5 MG Tablet sertraline (ZOLOFT) 100 MG Tablet The past medical, surgical, family and social histories, and allergies were reviewed and updated asneeded. ROS: All 14 systems reviewed and negative except as mentioned in the HPI. Plan: ICD-10-CM 1. Suspected sleep apnea R29.818 PULMONARY REFERRAL 2. Daytime sleepiness R40.0 3. Restless sleeper G47.9 HST to evaluate for SEBASTIAN. May continue atarax as needed. Plan a regular bedtime and wakeup schedule. Do quiet hobbies and activities in the evening. Exercise in the mornings or afternoons only. Avoid daytime napping. Avoid ogyx-epi-actxzje medications such as allergy medicines. Avoid tobacco products. Avoid caffeine after 4 p.m. (coffee, bela, tea, or chocolate) and earlier if possible. Avoid alcohol. Avoid heavy meals within 3 hours of bedtime. Keep the bedroom quiet, dark, cool, and comfortable, with a good mattress and comfortable pillows. Take a warm bath in the evening. Drink warm milk at bedtime. Listen to quiet music to induce sleep. Avoid watching television in bed. Minimize nighttime light exposure. Use relaxation techniques to reduce cognitive arousal at bedtime: progressive muscle relaxation, guided imagery, meditation, breathing exercises, or yoga. Follow Up: Tayla was asked to follow up with Tonja Yoo APRN, CNP in 3 month(s). Education materials sent via the patient's [employer] account. documented in this encounter Plan of Treatment Upcoming Encounters Date Type Department Care Team (Late st Contact Info) Description 11/08/2024 3:15 PM AUTO HAULAWAY DRIVER Office Visit [facility] - Primary Care - [place] [address] [place] [phone] Grecia Solis APRN, CNP [address] [place] [address] Scheduled Referrals Name Type Priority Associated Diagnoses Orde r Schedule SLEEP STUDY REFERRAL Outpatient Referral Routine Suspected sleep apnea Daytime sleepiness Restless sleeper Expected: 04/09/2024, Expires: 04/09/2025 documented as of this encounter Visit Diagnoses Diagnosis Suspected sleep apnea- Primary Daytime sleepiness Restless sleeper Sleep disturbance, unspecified documented in this encounter Care Teams Rhythmic Gymnastics Coach Relationship Specialty Start Date End Date Grecia Solis APRN, CNP [address] [place] [address] PCP - General Advanced Practice Nurse 02/09/24 Tonja Yoo APRN, DIRECTOR RECREATION #[address] [address] Nurse Practitioner Advanced Practice Nurse 04/09/24 documented as of this encounter
--- OUTSIDE RECORDS SUMMARY | 2024-11-02 22:39 | XMS_ITS | Encounter Summary ---
Author Organization [employer] Care Team Providers Care Preschool Program Director Name Role Phone Grecia Solis APRN, CNP Primary Care P rosanne Encounter Details Date Type Department Care Team (Latest Contact Info) Description 03/10/2024 Travel Social History Tobacco Use Types Packs/Day Years Used Date Smoking Tobacco: Never Smokeless Tobacco: Never Alcohol Use Standard Drinks/Week Comments Not Currently 0 (1 standard drink = 0.6 oz pur e alcohol) [facility] Utilities Answer Date Recorded In the past 12 months has [employer], gas, oil, or water company threatened [...] week 02/08/2024 How often do you attend [facility] or zoroastrianism services? Never 02/08/2024 Do you belong to any clubs o r organizations such as episcopal groups, unions, fraternal or athletic groups, or [...] medical care, and heating? Somewhat hard 02/08/2024 [facility] - Occupational Stress Questionnaire Answer Date Recorded [...] place to sleep or slept in a halfway (including now)? No 02/08/2024 Comments No Sex and Gender Information Value Date Recorded Sex Assigned at Not on file Legal Sex Female 7:18 PM CDT Gender Identity Not on file Sexual Orientation Not on file documented as of this encounter Plan of Treatment Upcoming Encounters Date Type Department Care Team (Late st Contact Info) Description 11/08/2024 3:15 PM CARTON MAKER Office Visit [facility] - Primary Care - [place] [address] [place] [address] Grecia Solis APRN, LEYDI [address] [place] [address] documented as of this encounter Visit Diagnoses Not on filedocumented in this encounter Care Teams Preschool Program Director Relationship Specialty Start Date End Date Grecia Solis APRN, CAPSULE MAKER [address] [place] [address] PCP - General Advanced Practice Nurse 02/09/24 documented as of this encounter
--- OUTSIDE RECORDS SUMMARY | 2024-11-02 22:39 | XMS_ITS | Encounter Summary ---
Author Organization [facility] Address [address] [place] [address] Phone Care Team Providers Care Recreational Programs Director Name Role Phone Grecia Solis APRN, CNP Primary Care P rovider Tonja Yoo APRN, CNP Unavailable Encounter Details Date Type Department Care Team (Latest Contact Info) Description 07/13/2024 4:25 PM CDT Ancillary Procedure [facility] - Diagnostic Radiology - [place] [address] [place] [address] Grecia Solis APRN, CNP [address] [place] [address] Subacute cough Discharge Disposition: Discharged to home or Selfcare Social History Tobacco Use Types Packs/Day Years Used Date Smoking Tobacco: Former Cigarettes Smokeless Tobacco: Never Alcohol Use Standard Drinks/Week Comments Yes 0 (1 standard drink = 0.6 oz pur e alcohol) Rarely [facility] Utilities Answer Date Recorded In the past 12 months has [employer], gas, oil, or water company threatened [...] often do you attend chur ch or rastafarian services? Never 02/08/2024 Do you belong to any clubs o r organizations such as religious groups, unions, fraternal or athletic groups, or [...] medical care, and heating? Somewhat hard 02/08/2024 [facility] of Occupat ional Health - Occupational Stress [...] place to sleep or slept in a [place] [facility] [place] facility (including now)? No 02/08/2024 Comments No Sex and Gender Information Value Date Recorded Sex Assigned at Not on file Legal Sex Female 7:18 PM CDT Gender Identity Not on file Sexual Orientation Not on file documented as of this encounter Plan of Treatment Upcoming Encounters Date Type Department Care Team (Late st Contact Info) Description 11/08/2024 3:15 PM UTILITY MECHANIC SUPERVISOR Office Visit [facility] Primary Care - [place] [address] [place] [phone] Grecia Solis, SOCIAL HUMAN SERVICES ASSISTANTS, APPLICATIONS DEVELOPER [address] [place] [address] documented as of this encounter Procedures Procedure Name Priority Date/Time Associated Diagnosis Comments XR CHEST 2 VIEWS Routine 07/13/2024 4:31 PM CDT Subacute cough documented in this encounter Results * XR CHEST 2 VIEWS (07/13/2024 4:31 PM CDT) Anatomical Region Laterality Modality Chest N/A Digital Radiogra phy 07/13/2024 4:44 PM CDT Impressions 07/13/2024 4:47 PM CDT IMPRESSION: 1. ?Small lung volumes with no acute radiographic abnormality. ? Narrative 07/13/2024 4:47 PM CDT EXAM DESCRIPTION: ?? XR CHEST 2 VIEWS REASON FOR STUDY: Dry cough for 2 months. TECHNIQUE: PA and lateral radiographic views of the chest COMPARISON: None FINDINGS: LUNGS/PLEURAE: ?? Small lung volumes. ??No consolidation or pleural effusion. ??There is no pneumothorax. HEART/MEDIASTINUM: ??Heart size is normal. Normal mediastinal and hilar contours. HARDWARE/LINES/TUBES: ?? None. BONES: ??Mild thoracic spondylosis. ?? THIS IS AN ELECTRONICALLY VERIFIED FINAL REPORT 07/13/2024 4:44 PM - Electronically signed by ??Jarett Frances M.D. LB: LB D: ??07/13/2024 4:44 PM T: ??07/13/2024 4:44 PM Report ID: [id number] Reading Location: ??[id number] Procedure Note Jarett Frances MD - 07/13/2024 EXAM DESCRIPTION: XR CHEST 2 VIEWS REASON FOR STUDY: Dry cough for 2 months. TECHNIQUE: PA and lateral radiographic views of the chest COMPARISON: None FINDINGS: LUNGS/PLEURAE: Small lung volumes. No consolidation or pleural effusion. There is no pneumothorax. HEART/MEDIASTINUM: Heart size is normal. Normal mediastinal and hilar contours. HARDWARE/LINES/TUBES: None. BONES: Mild thoracic spondylosis. THIS IS AN ELECTRONICALLY VERIFIED FINAL REPORT 07/13/2024 4:44 PM - Electronically signed by Jarett Frances M.D. LB: LB Report ID: [id number] Reading Location: [id number] IMPRESSION: 1. Small lung volumes with no acute radiographic abnormality. Grecia Solis APRN, CNP IM DIAGNOSTIC ORDERABLES Final Result documented in this encounter Visit Diagnoses Diagnosis Subacute cough Cough documented in this encounter Care Teams Recreational Programs Director Relationship Specialty Start Date End Date Grecia Solis APRN, CNP [address] [place] [address] PCP - General Advanced Practice Nurse 02/09/24 Tonja Yoo APRN, CNP #[address] [address] Nurse Practitioner Advanced Practice Nurse 04/09/24 documented as of this encounter
--- OUTSIDE RECORDS SUMMARY | 2024-11-02 22:39 | XMS_ITS | Encounter Summary ---
Author Organization [facility] Address [address] [facility] [place] [address] Phone Care Team Providers Care Engine Setter Name Role Phone Grecia Solis APRN, LEYDI Primary Care P rovider Tonja Yoo APRN, CNP Unavailable Reason for Visit * Reason Comments Cough Non-productive for t wo months Headache Encounter Details Date Type Department Care Team (Late st Contact Info) Description 07/13/2024 4:00 PM CDT Office Visit [facility] - Primary Care - [place] [address] [place] [address] Grecia Solis APRN, LEYDI [address] [place], [place] [id number] Subacute cough (Primary Dx) Discharge Disposition: Discharged to home or Selfcare Social History Tobacco Use Types Packs/Day Years Used Date Smoking Tobacco: Former Cigarettes Smokeless Tobacco: Never Tobacco Cessation:Counseling Given: Not Answered Alcohol Use Standard Drinks/Week Comments Yes 0 (1 standard drink = 0.6 oz pur e alcohol) Rarely [facility] Utilities Answer Date Recorded In the past 12 months has e electric, gas, oil, or water company [...] often do you attend chur ch or mormon services? Never 02/08/2024 Do you belong to any clubs o r organizations such as evangelical groups, unions, fraternal or athletic groups, or [...] medical care, and heating? Somewhat hard 02/08/2024 [facility] [place] of Occupat ional Health - Occupational Stress [...] place to sleep or slept in a [facility] (including now)? No 02/08/2024 Comments No Sex and Gender Information Value Date Recorded Sex Assigned at Not on file Legal Sex Female 7:18 PM CDT Gender Identity Not on file Sexual Orientation Not on file documented as of this encounter Last Filed Vital Signs Vital Sign Reading [...] Mass Index 44.15 07/13/2024 4:06 PM CDT documented in this encounter Patient Instructions * Patient Instructions* Grecia Solis APRN, CNP - 07/13/2024 4:00 PM CDT If any new or worsening symptoms occur, please call office. documented in this encounter Progress Notes * Donald Arias, DOLL REPAIRER - 07/13/2024 4:00 PM CDT Tayla Johnson, 48 y.o., female is here for Cough (Non-productive for two months ) and Headache Medication Refills: Patient reports/denies need for medication refills. Orders Pended: no Requested Prescriptions No prescriptions requested or ordered in this encounter Home Medications Medication Sig Start Date End Date Taking? Authorizing Provider amLODIPine (NORVASC) 10 MG Tablet Take 1 Tablet by mouth daily. 06/10/24 Grecia Solis APRN, CNP hydrOXYzine (ATARAX) 25 MG Tablet TAKE 1 TABLET BY MOUTH EVERY NIGHT NEEDED FOR SLEEP 06/08/24 Grecia Solis APRN, CNP lisinopril-hydroCHLOROthiazide (PRINZIDE, ZESTORETIC) 10-12.5 MG Tablet Take 1 Tablet by mouth daily. 03/18/24 Grecia Solis APRN, CNP sertraline (ZOLOFT) 100 MG Tablet Take 0.5 Tablets by mouth daily. 05/06/24 Grecia Solis APRN, CNP Vitamin D-Vitamin K (VITAMIN K2-VITAMIN D3 PO) Take by mouth daily. Provider, MD Elena There are no discontinued medications. I have reviewed the home medication list with the patient and have reconciled discrepancies. The list is accurate to the best of my knowledge. Smoking Status: Social History Tobacco Use Smoking status: Former Current packs/day: 1.00 Types: Cigarettes Smokeless tobacco: Never Vaping Use Vaping status: Every Day Substances: Nicotine Substance Use Topics Alcohol use: Yes Comment: Rarely Drug use: Not Currently Smoking Cessation Counseling Given: no Health Care Maintenance: Health Maintenance Due Topic Date Due TdaP Immunization Never done Hepatitis B Immunization (1 of 3 - 19+ 3-dose series) Never done Zoster Immunization (1 of 2) Never done Influenza Immunization (1) Never done SARS-COV-2 Immunization ( season) Never done Orders Pended: no The following BPA's have been addressed with the patient today: Pt presents today with concerns of a non-productive cough that has been present for over two months. Pt states that the cough is worse at night. * Sadie Loera Student - 07/13/2024 4:00 PM CDT [facility] - [facility] - [address] [address] Dept: [phone] Dept Loc: [phone] Loc Patient: Tayla Johnson : 1975 Sex: female Subjective: HPI: Tayla Johnson presents for Cough (Non-productive for two months ) and Headache Pt here with a dry and non-productive cough for about 2 months. States it feels like a tickle in her throat. She has been increasingly fatigued as the cough keeps her up at night. She has trials cough drops, cough medicine, expectorants, decongestants, antihistamines, etc. Without any relief. Pt isspeaking in complete sentences, denies SOB, fevers, chills. Endorses sore throat from coughing. Review of Systems Constitutional: Negative. HENT: Positive for congestion and sore throat. Eyes: Negative. Respiratory: Positive for cough. Negative for sputum production and shortness of breath. Cardiovascular: Negative. Gastrointestinal: Negative. Genitourinary: Negative. Musculoskeletal: Negative. Skin: Negative. Neurological: Negative. Psychiatric/Behavioral: Negative. Objective: Vitals: 07/13/24 1606 BP: 96/76 BP Location: Right Arm BP Position: Sitting BP Cuff Size: Large Pulse: 65 Resp: 20 Temp: 98.1 ??F (36.7 ??C) TempSrc: Oral SpO2: 97% Weight: 299 lb (135.6 kg) Height: 5' 9 (1.753 m) LMP: No LMP recorded. Patient is postmenopausal. Body mass index is 44.15 kg/m??. Physical Exam Vitals and nursing note reviewed. Constitutional: General: She is not in acute distress. Appearance: Normal appearance. She is well-developed. HENT: Head: Normocephalic and atraumatic. Right Ear: Tympanic membrane, ear canal and external ear normal. Left Ear: Tympanic membrane, ear canal and external ear normal. Nose: Nose normal. Mouth/Throat: Mouth: Mucous membranes are moist. Pharynx: Oropharynx is clear. No oropharyngeal exudate. Eyes: Conjunctiva/sclera: Conjunctivae normal. Pupils: Pupils are equal, round, and reactive to light. Neck: Thyroid: No thyromegaly. Vascular: No carotid bruit. Cardiovascular: Rate and Rhythm: Normal rate and regular rhythm. Pulses: Normal pulses. Heart sounds: Normal heart sounds. No murmur heard. No friction rub. No gallop. Pulmonary: Effort: Pulmonary effort is normal. No respiratory distress. Breath sounds: Normal breath sounds. No wheezing or rales. Chest: Chest wall: No tenderness. Abdominal: General: Bowel sounds are normal. There is no distension. Palpations: Abdomen is soft. There is no mass. Tenderness: There is no abdominal tenderness. There is no guarding or rebound. Musculoskeletal: General: No tenderness. Normal range of motion. Cervical back: Normal range of motion and neck supple. Right lower leg: No edema. Left lower leg: No edema. Lymphadenopathy: Cervical: No cervical adenopathy. Skin: General: Skin is warm and dry. Neurological: Mental Status: She is alert and oriented to person, place, and time. Coordination: Coordination normal. Psychiatric: Mood and Affect: Mood normal. Behavior: Behavior normal. Thought Content: Thought content normal. Judgment: Judgment normal. Medical Decision Making: Assessment & Plan Get chest x-ray, will f/u with results Take medication as prescribed. Push lots of fluids. Diagnoses and all orders for this visit: Subacute cough - XR CHEST 2 VIEWS; Future Follow-up Information Return if symptoms worsen or fail to improve. LOS Today No Level of Service on file Patient verbalizes understanding and agrees with plan of care as noted above. New medication discussed with patient and family, including action of medication, potential side effects, interactions, and consequences for not taking it. Patient states understanding of new medication instructions. Written education on new medication added to patient printed AVS. An After Visit Summary was printed and given to the patient. Documentation for this visit on 07/13/24 was completed using a template. I have seen and examined the patient. Everything documented was personally performed at this visit with the necessary additions, deletions and changes made as appropriate. Cosigned by Grecia Solis APRN, FINANCIAL INSTITUTION VICE PRESIDENT at 07/13/2024 4:53 PM CDT Associated attestation - Grecia Solis APRN, CNP - 07/13/2024 4:53 PM CDT I was immediately available during this visit on 07/13/24. I have reviewed and agree with the LEATHERSMITH students history, exam and medical decision making with the following additions/revisions noted. I discussed the history, exam and medical decision making with the DEANGELO student at the time of the visit. documented in this encounter Plan of Treatment Upcoming Encounters Date Type Department Care Team (Late st Contact Info) Description 11/08/2024 3:15 PM RECYCLING OPERATOR Office Visit [facility] - Primary Care - [place] [address] [place] [phone] Grecia Solis APRN, CNP [address] [place] [address] documented as of this encounter Results * XR CHEST 2 [...] PM T: ??07/13/2024 4:44 PM Report ID: [id number] Reading Location: ??[id number] Procedure Note Jarett Frances MD - 07/13/2024 [...] Jarett Frances M.D. LB: LB Report ID: [id number] Reading Location: [id number] IMPRESSION: 1. Small lung volumes with no acute radiographic abnormality. LEYDI Stone APRN DIAGNOSTIC ORDERABLES Final Result documented in this encounter Visit Diagnoses Diagnosis Subacute cough- Primary Cough Subacute cough Cough documented in this encounter Care Teams Engine Setter Relationship Specialty Start Date End Date Grecia Solis APRN, CNP [address] [place] [address] PCP - General Advanced Practice Nurse 02/09/24 Tonja Yoo APRN, CNP #[address] [address] Nurse Practitioner Advanced Practice Nurse 04/09/24 documented as of this encounter
--- OUTSIDE RECORDS SUMMARY | 2024-11-02 22:39 | XMS_ITS | Encounter Summary ---
Author Organization [employer] Care Team Providers Care Retail Pharmacist Name Role Phone Grecia Solis APRN, CERTIFIED SURGICAL TECHNICIAN Primary Care P sofiader Tonja Yoo APRN, LEYDI Unavailable [phone] Encounter Details Date Type Department Care Team (Latest Contact Info) Description 04/09/2024 Travel Social History Tobacco Use Types Packs/Day Years Used Date Smoking Tobacco: Never Smokeless Tobacco: Never Alcohol Use Standard Drinks/Week Comments Not Currently 0 (1 standard drink = 0.6 oz pur e alcohol) [facility] Utilities Answer Date Recorded In the past 12 months has [id number], gas, oil, or water company threatened [...] 02/08/2024 How often do you attend chur or mu-ism services? Never 02/08/2024 Do you belong to any clubs o r organizations such as jehovah's witness groups, unions, fraternal or athletic groups, or [...] medical care, and heating? Somewhat hard 02/08/2024 [facility] Occupat ional [facility] - Occupational [...] place to sleep or slept in a usp (including now)? No 02/08/2024 Comments No Sex and Gender Information Value Date Recorded Sex Assigned at Not on file Legal Sex Female 7:18 PM CDT Gender Identity Not on file Sexual Orientation Not on file documented as of this encounter Plan of Treatment Upcoming Encounters Date Type Department Care Team (Late st Contact Info) Description 11/08/2024 3:15 PM DOORMAKER Office Visit [facility] - [facility] Care - [place] [address] [place] [phone] Grecia Solis APRN, LEYDI [address] [place] [address] documented as of this encounter Visit Diagnoses Not on filedocumented in this encounter Care Teams Retail Pharmacist Relationship Specialty Start Date End Date Grecia Solis APRN, LEYDI [address] [place] [address] PCP - General Advanced Practice Nurse 02/09/24 Tonja Yoo APRN, LEYDI [address] [address] Nurse Practitioner Advanced Practice Nurse 04/09/24 documented as of this encounter
--- OUTSIDE RECORDS SUMMARY | 2024-11-02 22:39 | XMS_ITS | Encounter Summary ---
Author Organization [employer] Care Team Providers Care Lens Blocker Name Role Phone Grecia Solis APRN, CNP Primary Care P rosanne Encounter Details Date Type Department Care Team (Latest Contact Info) Description 03/03/2024 Travel Social History Tobacco Use Types Packs/Day Years Used Date Smoking Tobacco: Never Smokeless Tobacco: Never Alcohol Use Standard Drinks/Week Comments Not Currently 0 (1 standard drink = 0.6 oz pur e alcohol) [facility] Utilities Answer Date Recorded In the past 12 months has [employer] electric, gas, oil, or water company threatened [...] week 02/08/2024 How often do you attend [facility] or yazidism services? Never 02/08/2024 Do you belong to [...] medical care, and heating? Somewhat hard 02/08/2024 [facility] - Occupational Stress Questionnaire Answer Date Recorded [...] place to sleep or slept in a long term (including now)? No 02/08/2024 Comments No Sex and Gender Information Value Date Recorded Sex Assigned at Not on file Legal Sex Female 7:18 PM CDT Gender Identity Not on file Sexual Orientation Not on file documented as of this encounter Plan of Treatment Upcoming Encounters Date Type Department Care Team (Late st Contact Info) Description 11/08/2024 3:15 PM CENTRAL STERILE TECH [facility] Care - [place] [address] [place] [address] Grecia Solis APRN, LEYDI [address] [place] [address] documented as of this encounter Visit Diagnoses Not on filedocumented in this encounter Care Teams Lens Blocker Relationship Specialty Start Date End Date Grecia Solis APRN, EMERGENCY ROOM TECH [address] [place] [address] PCP - General Advanced Practice Nurse 02/09/24 documented as of this encounter
--- OUTSIDE RECORDS SUMMARY | 2024-11-02 22:39 | XMS_ITS | Encounter Summary ---
Author Organization [facility] Address [address] [facility] [place] [address] Phone Care Team Providers Care Top Stitcher Name Role Phone Grecia Solis APRN, CNP Primary Care P rovider Tonja Yoo APRN, CNP Unavailable Encounter Details Date Type Department Care Team (Late st Contact Info) Description 04/23/2024 Telephone [facility] - Pulmonology & Sleep Medicine [facility] [address] [place] [phone] Tonja Yoo APRN, LEYDI [address] [address] Social History Tobacco Use Types Packs/Day Years Used Date Smoking Tobacco: Never Smokeless Tobacco: Never Alcohol Use Standard Drinks/Week Comments Not Currently 0 (1 standard drink = 0.6 oz pur e alcohol) [facility] Utilities Answer Date Recorded In the past 12 months has [employer] electric, gas, oil, or water company threatened [...] week 02/08/2024 How often do you attend [facility] or mormonism services? Never 02/08/2024 Do you belong to any clubs o r organizations such as episcopalian groups, unions, fraternal or athletic groups, or [...] medical care, and heating? Somewhat hard 02/08/2024 [facility] of Occupat ional [facility] - Occupational Stress Questionnaire Answer Date [...] place to sleep or slept in a custodial (including now)? No 02/08/2024 Comments No Sex and Gender Information Value Date Recorded Sex Assigned at Not on file Legal Sex Female 7:18 PM CDT Gender Identity Not on file Sexual Orientation Not on file documented as of this encounter Miscellaneous Notes * Telephone Encounter - Laquita Shelton RN - 04/23/2024 9:18 AM CDT Patient is aware of results and stated she is not interested in using an APAP. * Telephone Encounter - Laquita Shelton RN - 04/23/2024 9:16 AM CDT ----- Message from Tonja Yoo APRN, PUBLIC HEALTH DIETITIAN sent at 04/22/2024 1:00 PM CDT ----- Please let patient know sleep study is consistent with moderate SEBASTIAN. Recommend APAP 5-15cm order parveen sent to DME of patients choice. documented in this encounter Plan of Treatment Upcoming Encounters Date Type Department Care Team (Late st Contact Info) Description 11/08/2024 3:15 PM EDUCATION PROFESSOR Office [facility] - [place] [address] [place] [address] Grecia Solis APRN, PUBLIC HEALTH DIETITIAN [address] [place] [id number] documented as of this encounter Visit Diagnoses Not on filedocumented in this encounter Care Teams Top Stitcher Relationship Specialty Start Date End Date Grecia Solis APRN, PUBLIC HEALTH DIETITIAN [address] [place] [address] PCP - General Advanced Practice Nurse 02/09/24 Tonja Yoo APRN, LEYDI #[address] [address] Nurse Practitioner Advanced Practice Nurse 04/09/24 documented as of this encounter
--- OUTSIDE RECORDS SUMMARY | 2024-11-02 22:39 | XMS_ITS | Encounter Summary ---
Author Organization [facility] Address [address] [place] [address] Phone Care Team Providers Care Mortgage Banker Name Role Phone Grecia Solis APRN, CNP Primary Care P roscottder Reason for Referral * Radiology Services (Routine) - Closed Specialty Diagnoses / Procedures Referred By Cee ann Referred To Contact Radiology Diagnoses Abnormal mammogram Procedures [facility] US BREAST LIMITED ARVIN Grecia Solis APRN, CNP [address] [place] [address] Phone: tel: fax: Referral ID Status Reason Start Date Expiration Date Visits Re quested Visits Authorized [id number] Closed 02/12/2024 1 1 * Radiology Services (Routine) - Closed Specialty Diagnoses / Procedures Referred By Cee ann Referred To Contact Radiology Diagnoses Abnormal mammogram Procedures [facility] DIAG BILATERAL DIGITAL W CAD W RAJI Grecia Solis APRN, CNP [address] [place] [address] Phone: tel: fax: Referral ID Status Reason Start Date Expiration Date Visits Re quested Visits Authorized [id number] Closed 02/12/2024 1 1 Reason for Visit * Reason Onset Date Comments Results 02/12/2024 Mamm Medication Refill 02/12/2024 Encounter Details Date Type Department Care Team (Late st Contact Info) Description 02/12/2024 Telephone [facility] - Primary Care - [place] [address] [place] [address] Grecia Solis APRN, LEYDI [address] [place] [address] Results (Mamm); Medication Refill Social History Tobacco Use Types Packs/Day Years Used Date Smoking Tobacco: Never Smokeless Tobacco: Never Alcohol Use Standard Drinks/Week Comments Not Currently 0 (1 standard drink = 0.6 oz pur e alcohol) [facility] Utilities Answer Date Recorded In the past 12 months has e [employer], gas, oil, or water company threatened to [...] week 02/08/2024 How often do you attend [facility] or zoroastrianism services? Never 02/08/2024 Do you belong to any clubs o r organizations such as christian groups, unions, fraternal or athletic groups, or [...] medical care, and heating? Somewhat hard 02/08/2024 [facility] Occupat ional Health - Occupational Stress [...] place to sleep or slept in a detention (including now)? No 02/08/2024 Comments No Sex and Gender Information Value Date Recorded Sex Assigned at Not on file Legal Sex Female 7:18 PM CDT Gender Identity Not on file Sexual Orientation Not on file documented as of this encounter Miscellaneous Notes * Telephone Encounter - Sarai Zapata RN - 02/12/2024 8:55 AM CDT Imaging has been ordered. Is pt aware she needs further testing? * Telephone Encounter - Sarai Zapata RN - 02/12/2024 8:52 AM CDT ----- Message from Grecia Solis APRN, CNP sent at 02/11/2024 5:12 PM CDT ----- Regarding: FW: Additional imaging needed Please order. Thanks ----- Message ----- From: Leigha Soto RT(Lino) (M) Sent: 02/11/2024 9:51 AM CDT To: Grecia Solis APRN, CNP; # Subject: Additional imaging needed Additional breast is being requested by the radiologist after reviewing this patient's baseline screening mammogram. Please send the following orders Bilateral Breast Ultrasound ([id number]) Bilateral Diag Mamm ([id number]) Thank you. * Telephone Encounter - Sarai Zapata RN - 02/12/2024 8:13 AM CDT ----- Message from Grecia Solis APRN, CNP sent at 02/11/2024 6:55 PM CDT ----- Additional imaging was ordered, please see if straddle carrier operator discussed it. documented in this encounter Plan of Treatment Upcoming Encounters Date Type Department Care Team (Late st Contact Info) Description 11/08/2024 3:15 PM CABINETMAKER MAINTENANCE Office Visit [facility] - [facility] Care - [place] [address] [place] [phone] Grecia Solis APRN, CNP [address] [place] [address] documented as of this encounter Results * [facility] US BREAST LIMITED ARVIN (03/05/2024 2:25 PM CDT) Anatomical Region Laterality Modality breast Bilateral Ultrasound 03/05/2024 12:5 9 PM CDT Narrative 03/05/2024 2:45 PM CDT - [facility] DIAG BILATERAL DIGITAL W CAD W RAJI - ITALO US BREAST LIMITED ARVIN BILATERAL DIGITAL DIAGNOSTIC MAMMOGRAM 3D/2D WITH CAD WITH MEDIOLATERAL MEDIOLATERAL OBLIQUE CRANIOCAUDAL SPOT COMPRESSION AND TARGETED BILATERAL ULTRASOUND: 03/05/2024 The study was acquired using digital technology and interpreted from soft copy. Current study was also evaluated with [employer] version 7.2. 2D digital mammographic views, as well as 3D digital tomosynthesis were performed in the CC and MLO projections. ?? CLINICAL: Diagnostic study. Patient returns for additional imaging over suspected masses in both breasts. Sister with premenopausal breast cancer. ?? COMPARISONS: Comparison is made to exam dated: ??02/10/2024 [facility]. ?? BREAST TISSUE:There are scattered fibroglandular densities [...] Abimbola White M.D. ? ab/:03/05/2024 14:28:59 ?? Supervisor Wet Pour(s): Leigha ?? RT Charles(R)(M), [facility]; Gabbi ??LOY Gonzales, [facility] letter sent: Birad 3 Followup ?? Reading location: [facility] OVERALL STUDY BIRADS: 3 Probably benign Procedure Note [...] Comparison is made to exam dated: 02/10/2024 [facility]. BREAST TISSUE:There are scattered fibroglandular densities in [...] signed by: Abimbola White M.D. ab/:03/05/2024 14:28:59 Supervisor Wet Pour(s): Leigha Soto, RT(R)(M), [facility]; LOY Collins, [facility] letter sent: Birad 3 Followup Reading location: [facility] OVERALL STUDY BIRADS: 3 Probably benign us Grecia Solis APRN, CNP IMG MAMMO ORDER ESTELLA Final Result * [facility] DIAG BILATERAL DIGITAL W CAD [...] Comparison is made to exam dated: ??[facility]. ?? BREAST TISSUE:There are scattered fibroglandular densities [...] Abimbola White M.D. ? ab/:03/05/2024 14:28:59 ?? Supervisor Wet Pour(s): Leigha ?? ADRIAN Soto)(Samuel), [facility]; Gabbi ??LOY Gonzales, [facility] letter sent: Birad 3 Followup ?? Reading location: [facility] OVERALL STUDY BIRADS: 3 Probably benign Procedure Note [...] Comparison is made to exam dated: 02/10/2024 [facility]. BREAST TISSUE:There are scattered fibroglandular densities in [...] signed by: Abimbola White M.D. ab/:03/05/2024 14:28:59 Supervisor Wet Pour(s): Leigha Soto, RT(R)(M), [facility]; Gabbi Gonzales RDMS OBBRIANNA, [facility] letter sent: Jerica 3 Followup Reading location: [facility] OVERALL STUDY BIRADS: 3 Probably benign Grecia Solis APRN, CNP IMG MAMMO ORDER ESTELLA Final Result documented in this encounter Visit Diagnoses Diagnosis Abnormal mammogram- Primary Abnormal mammogram, unspecified Abnormal mammogram Abnormal mammogram, unspecified Abnormal mammogram Abnormal mammogram, unspecified documented in this encounter Care Teams Mortgage Banker Relationship Specialty Start Date End Date Grecia Solis APRN, CNP [address] [place] [address] PCP - General Advanced Practice Nurse 02/09/24 documented as of this encounter
--- OUTSIDE RECORDS SUMMARY | 2024-11-02 22:39 | XMS_ITS | Encounter Summary ---
Author Organization [facility] Address [address] [facility] [place] [address] Phone Care Team Providers Care Hand Plug Shaper Name Role Phone Grecia Solis APRN, CNP Primary Care P rovider Tonja Yoo APRN, CNP Unavailable Reason for Visit * Reason Comments Medication Refill Encounter Details Date Type Department Care Team (Late st Contact Info) Description 06/08/2024 Refill [facility] - Primary Care - [place] [address] [address] Grecia Solis APRN, CNP [address] [place] [address] Medication Refill Social History Tobacco Use Types Packs/Day Years Used Date Smoking Tobacco: Former Cigarettes Smokeless Tobacco: Never Alcohol Use Standard Drinks/Week Comments Yes 0 (1 standard drink = 0.6 oz pur e alcohol) Rarely [facility] Utilities Answer Date Recorded In the past 12 months has [employer] electric, gas, oil, or water company threatened [...] often do you attend chur ch or pentecostal services? Never 02/08/2024 Do you belong to any clubs o r organizations such as sikhism groups, unions, fraternal or athletic groups, or [...] medical care, and heating? Somewhat hard 02/08/2024 [facility] of Occupat ional Health - [...] place to sleep or slept in a skilled nursing (including now)? No 02/08/2024 Comments No Sex and Gender Information Value Date Recorded Sex Assigned at Not on file Legal Sex Female 7:18 PM CDT Gender Identity Not on file Sexual Orientation Not on file documented as of this encounter Miscellaneous Notes * Telephone Encounter - Manan Silverman RN - 06/08/2024 1:53 PM CDT Medication failed the protocol, provider to review and approve the medication order if appropriate. Requested Prescriptions Pending Prescriptions Disp Refills hydrOXYzine (ATARAX) 25 MG Tablet [Pharmacy Med Name: HYDROXYZINE HCL 25MG TABS (WHITE)] 90 Tablet 1 Sig: TAKE 1 TABLET BY MOUTH EVERY NIGHT NEEDED FOR SLEEP Not Delegated - Off Protocol Failed - 06/08/2024 12:38 PM Failed - This refill cannot be delegated Passed - Visit with relevant provider in past 12 months or upcoming 90 days Recent Visits Date Type Provider Dept 05/06/24 Office Visit Grecia Solis APRN, CNP [facility] 03/18/24 Office Visit Grecia Solis APRN, CNP [facility] 02/09/24 Office Visit Grecia Solis APRN, CNP [facility] Showing recent visits within past 365 days and meeting all other requirements Future Appointments No visits were found meeting these conditions. Showing future appointments within next 90 days and meeting all other requirements documented in this encounter Plan of Treatment Upcoming Encounters Date Type Department Care Team (Late st Contact Info) Description 11/08/2024 3:15 PM CEMENT CUTTER [facility] - Primary Care - [place] [address] [phone] Grecia Solis APRN, LEYDI [address] [address] documented as of this encounter Visit Diagnoses Diagnosis Primary insomnia Persistent disorder of initiating or maintaining sleep documented in this encounter Care Teams Hand Plug Shaper Relationship Specialty Start Date End Date Grecia Solis APRN, LEYDI [address] [place] [address] PCP - General Advanced Practice Nurse 02/09/24 Tonja Yoo APRN, LEYDI #[address] [address] Nurse Practitioner Advanced Practice Nurse 04/09/24 documented as of this encounter
--- OUTSIDE RECORDS SUMMARY | 2024-11-02 22:39 | XMS_ITS | Encounter Summary ---
Author Organization [employer] Care Team Providers Care Medical Illustrator Name Role Phone Grecia Solis APRN, LEATHER CLEANER Primary Care P sofiader Tonja Yoo APRN, LEYDI Unavailable [phone] Encounter Details Date Type Department Care Team (Latest Contact Info) Description 04/27/2024 Travel Social History Tobacco Use Types Packs/Day Years Used Date Smoking Tobacco: Never Smokeless Tobacco: Never Alcohol Use Standard Drinks/Week Comments Not Currently 0 (1 standard drink = 0.6 oz pur e alcohol) [facility] Utilities Answer Date Recorded In the past 12 months has [employer] electric, gas, oil, or water company threatened [...] How often do you attend chur or confucianist services? Never 02/08/2024 Do you belong to [...] medical care, and heating? Somewhat hard 02/08/2024 [facility] of Occupat ional Health - [...] place to sleep or slept in a fpc (including now)? No 02/08/2024 Comments No Sex and Gender Information Value Date Recorded Sex Assigned at Not on file Legal Sex Female 7:18 PM CDT Gender Identity Not on file Sexual Orientation Not on file documented as of this encounter Plan of Treatment Upcoming Encounters Date Type Department Care Team (Late st Contact Info) Description 11/08/2024 3:15 PM SOFTBALL WINDER Office Visit [facility] - Primary Care - [place] [address] [place] [phone] Grecia Solis APRN, LEYDI [address] [place] [address] documented as of this encounter Visit Diagnoses Not on filedocumented in this encounter Care Teams Medical Illustrator Relationship Specialty Start Date End Date Grecia Solis APRN, LEYDI [address] [place] [address] PCP - General Advanced Practice Nurse 02/09/24 Tonja Yoo APRN, LEYDI [address] [address] Nurse Practitioner Advanced Practice Nurse 04/09/24 documented as of this encounter
--- OUTSIDE RECORDS SUMMARY | 2024-11-02 22:39 | XMS_ITS | Encounter Summary ---
Author Organization [facility] Address [address] [place] [address] Phone Care Team Providers Care Emt Paramedic Name Role Phone Grecia Solis APRN, CNP Primary Care P rovider Tonja Yoo APRN, CNP Unavailable [phone] Reason for Visit * Reason Comments New Patient WWE * Consult, Test & Initiate Treatment (Routine) - Closed Specialty Diagnoses / Procedures Referred By Cee t Referred To Contact Diagnoses Screening for cervical cancer Grecia Solis APRN, LEYDI [address] [place] [address] Phone: tel: fax: [facility] Ob[facility]s & [facility] [address] [place] [address] Phone: tel: fax: Referral ID Status Reason Start Date Expiration Date Visits Re quested Visits Authorized [id number] Closed 02/09/2024 1 1 Encounter Details Date Type Department Care Team ([facility] Contact Info) Description 04/27/2024 3:00 PM CDT Office Visit [facility] Ob[facility]s & [facility] [address] [place] [id number] Grecia Solis APRN, LEYDI [address] [place] [address] Richard Ferguson MD [address] [place] [address] Encounter for well woman exam with routine gynecological exam (Primary Dx); Screening for cervical cancer; Overweight on examination Discharge Disposition: Discharged to home or Selfcare Social History Tobacco Use Types Packs/Day Years Used Date Smoking Tobacco: Never Smokeless Tobacco: Never Alcohol Use Standard Drinks/Week Comments Not Currently 0 (1 standard drink = 0.6 oz pur e alcohol) [facility] Utilities Answer Date Recorded In the [...] often do you attend chur ch or confucianist services? Never 02/08/2024 Do you belong to any clubs o r organizations such as anabaptist groups, unions, fraternal or athletic groups, or [...] medical care, and heating? Somewhat hard 02/08/2024 [facility] [place] of Occupat ional Health - Occupational Stress [...] Sign Reading Time Taken Comments Blood Pressure 124/78 04/27/2024 2:45 PM CDT Pulse 75 04/27/2024 2:45 PM CDT Temperature - - Respiratory Rate 20 04/27/2024 2:45 PM CDT Oxygen Saturation 97% 04/27/2024 2:45 PM CDT Inhaled Oxygen Concentration - - Weight 137.9 kg (304 lb) 04/27/2024 2:45 PM CDT Height 175.3 cm (5' 9 ) 04/27/2024 2:45 PM CDT Body Mass Index 44.89 04/27/2024 2:45 PM CDT documented in this encounter Progress Notes * Richard Ferguson MD - 04/27/2024 3:00 PM CDT 48 y.o. here for annual and new visit. She is , she does not smoke and is feeling well. She does want to lose some weight, but it has been difficult. She is active and takes care of 2 grandkids also. She sees Grecia, does vape some. Had mammogram and is up to date. Pap is due and have been normal. No Fhx of female CA's. Questions answered. Doing well overall. Review of Systems - A 14 point comprehensive review of systems was negative, except as documented in HPI. No past medical history on file. Past Surgical History: Procedure Laterality Date CARPAL TUNNEL RELEASE Right ERCP 02/07/2016 REMOVAL GALLBLADDER TUBAL LIGATION Current Outpatient Medications Medication Sig Dispense Refill amLODIPine (NORVASC) 10 MG Tablet Take 1 Tablet by mouth daily. 90 Tablet 1 hydrOXYzine (ATARAX) 25 MG Tablet Take 1 Tablet by mouth nightly as needed for Sleep. 90 Tablet 0 lisinopril-hydroCHLOROthiazide (PRINZIDE, ZESTORETIC) 10-12.5 MG Tablet Take 1 Tablet by mouth daily. 90 Tablet 3 sertraline (ZOLOFT) 100 MG Tablet Take 50 mg by mouth daily. No current facility-administered medications for this visit. PE: A x O times 3 CV:rrr LUNGS: ctab AB: soft, nt, +bs EX: no edema Pelvic exam: normal external genitalia, vulva, vagina, cervix, uterus and adnexa, VULVA: normal appearing vulva with no masses, tenderness or lesions, VAGINA: normal appearing vagina with normal color and discharge, no lesions, CERVIX: normal appearing cervix without discharge or lesions, UTERUS: uterus is normal size, shape, consistency and nontender, ADNEXA: normal adnexa in size, nontender andno masses, PAP: Pap smear done today, exam chaperoned by Rubina. A/P: Normal exam. Pap done. Rec. Exercise. Vaping is not healthy for your lungs. No FHx of female malignancies. Questions answered. documented in this encounter Plan of Treatment Upcoming Encounters Date Type Department Care Team (Late st Contact Info) Description 11/08/2024 3:15 PM PLATE FURNACE OPERATOR Office Visit [facility] - Primary Care - [place] [address] [place] [address] Grecia Solis APRN, FREELANCE PATTERNMAKER [address] [place], [place] [id number] documented as of this encounter Procedures Procedure Name Priority Date/Time Associated Diagnosis Comments PATHOLOGY CYTOLOGY AUTOMATIC PAD MAKING MACHINE OPERATOR Routine 04/27/2024 3:48 PM CDT Encounter for well woman exam with routine gynecological exam documented in this encounter Results * PATHOLOGY CYTOLOGY AUTOMATIC PAD MAKING MACHINE OPERATOR (04/27/2024 3:48 PM CDT) SPECIMEN ADEQUACY Unsatisfactory for evaluation due to scant squamous component. Endocervical/transf ormation zone component is absent. 05/06/2024 4:05 PM CDT [facility] DESCRIPTIVE DIAGNOSIS UNSATISFACTORY FOR INTERPRETATION. 05/06/2024 4:05 PM CDT [facility] Automated Examination Analysis of this sample has been assisted by an automated imaging and review system (Thinprep Imaging System, [employer], [place], [place]). This case is further evaluated and finalized by a superannuation funds manager and/or pathologist. 05/06/2024 4:05 PM CDT [facility] Disclaimer The PAP smear is a screening [...] unless clinically indicated. 05/06/2024 4:05 PM CDT [facility] Case Report Gynecologic Cytology Report ? Case: [id number] ? Authorizing Provider: ??Richard Ferguson MD ?Collected: ? 04/27/2024 03:48 PM ? Ordering Location: ? [facility] - ?Received: ?04/27/2024 03:48 PM ? Obstetrics & Gynecology - ? [place] ? First Screen: ?Julia Patel ? Rescreen: ?Arely Holt Eyad ? Specimen: ?TP Screen, Cervix/Endocervix ? 05/06/2024 4:05 PM CDT [facility] Other (Cervix/Endocerv ix) Non-Phlebotomy Collection / Unknown 04/27/2024 3:48 PM CDT 04/27/2024 3:48 PM CDT us Richard Ferguson MD PATHOLOGY/CYTOLOGY ORDERABLES Final Result [facility] [address] [place] [address], documented in this encounter Visit Diagnoses Diagnosis Encounter for well woman exam with routine gynecological exam- Primary Screening for cervical cancer Screening for malignant neoplasm of the cervix Overweight on examination documented in this encounter Care Teams Emt Paramedic Relationship Specialty Start Date End Date Grecia Solis APRN, FREELANCE PATTERNMAKER [address] [place] [address] PCP - General Advanced Practice Nurse 02/09/24 Tonja Yoo APRN, FREELANCE PATTERNMAKER [address] [address] Nurse Practitioner Advanced Practice Nurse 04/09/24 documented as of this encounter
--- OUTSIDE RECORDS SUMMARY | 2024-11-02 22:39 | XMS_ITS | Encounter Summary ---
Author Organization [facility] Address [address] [place] [address] Phone Care Team Providers Care Curtain Worker Name Role Phone Grecia Solis APRN, CNP Primary Care P rosanne Reason for Referral * Radiology Services (Routine) - Closed Specialty Diagnoses / Procedures Referred By Cee ann Referred To Contact Radiology Diagnoses Abnormal mammogram Procedures ITALO RAHAT BILATERAL DIGITAL W CAD W Grecia Beltre APRN, CNP [address] [place] [address] Phone: tel: fax: Referral ID Status Reason Start Date Expiration Date Visits Re quested Visits Authorized [id number] Closed 02/12/2024 1 1 Reason for Visit * Radiology Services (Routine) - Closed Specialty Diagnoses / Procedures Referred By Cee ann Referred To Contact Radiology Diagnoses Abnormal mammogram Procedures ITALO RAHAT BILATERAL DIGITAL W CAD W Grecia Beltre APRN, CNP [address] [place] [address] Phone: tel: fax: Referral ID Status Reason Start Date Expiration Date Visits Re quested Visits Authorized [id number] Closed 02/12/2024 1 1 Encounter Details Date Type Department Care Team (Latest Contact Info) Description 03/05/2024 12:55 PM CDT - 03/05/2024 1:51 PM CDT Hospital Encounter [facility] Mammography [address] [place] [address] Grecia Solis APRN, DOCUMENT MANAGER [address] [place] [address] Discharge Disposition: Discharged to home or Selfcare Social History Tobacco Use Types Packs/Day Years Used Date Smoking Tobacco: Never Smokeless Tobacco: Never Alcohol Use Standard Drinks/Week Comments Not Currently 0 (1 standard drink = 0.6 oz pur e alcohol) [facility] Utilities Answer Date Recorded In the [...] often do you attend chur ch or anglican services? Never 02/08/2024 Do you belong to any clubs o r organizations such as samaritan groups, unions, fraternal or athletic groups, or [...] medical care, and heating? Somewhat hard 02/08/2024 [facility] [place] of Occupat ional Health - Occupational Stress [...] on file documented as of this encounter Medications at Time of Discharge amLODIPine (NORVASC) 10 MG TabletIndications :Essential hypertension Take 1 Tablet by mouth daily. 90 Tablet 1 02/09/2024 hydrOXYzine (ATARAX) 25 MG TabletIndications :Primary insomnia Take 1 Tablet by mouth nightly as needed for Sleep. 90 Tablet 02/09/2024 4 semaglutide-weigh t management (Wegovy) 0.25 MG/0.5ML Solution Auto-injector 0.25 mg by Subcutaneous route once a week. 2 mL 02/09/2024 4 sertraline (ZOLOFT) 100 MG Tablet Take 50 mg by mouth daily. 4 documented as of this encounter Plan of Treatment Upcoming Encounters Date Type Department Care Team (Late st Contact Info) Description 11/08/2024 3:15 PM MOTOR DRIVER Office Visit [facility] - Primary Care - [place] [address] [place] [address] Grecia Solis APRN, DOCUMENT MANAGER [address] [place], [place] [phone] documented as of this encounter Procedures Procedure Name Priority Date/Time Associated Diagnosis Comments ITALO DIAG BILATERAL DIGITAL W CAD W RAJI Routine 03/05/2024 1:48 PM CDT Abnormal mammogram documented in this encounter Results * ITALO DIAG BILATERAL DIGITAL W CAD [...] Comparison is made [facility] ?? BREAST TISSUE:There are scattered fibroglandular [...] Abimbola White M.D. ? ab/:03/05/2024 14:28:59 ?? Community Organization Aide(s): Leigha ?? RT Charles(Lino)(Samuel), [facility]; Gabbi ??LOY Gonzales, [facility] letter sent: Birad 3 Followup ?? Reading location: [facility] OVERALL STUDY BIRADS: 3 Probably benign Procedure Note Abimbola White MD - 03/05/2024 - ITALO DIAG BILATERAL DIGITAL W CAD W RAJI - [facility] US BREAST LIMITED ARVIN BILATERAL DIGITAL DIAGNOSTIC [...] is made to exam dated: 02/10/2024 [facility]. BREAST TISSUE:There are scattered fibroglandular densities in [...] signed by: Abimbola White M.D. ab/:03/05/2024 14:28:59 Community Organization Aide(s): RT Db(R)(M), [facility]; Gabbi Gonzales RDMS OBGYN, [facility] letter sent: Birad 3 Followup Reading location: [facility] OVERALL STUDY BIRADS: 3 Probably benign us Grecia Solis APRN, CNP IMAlfie MAMMO ORDER ESTELLA Final Result documented in this encounter Visit Diagnoses Diagnosis Abnormal mammogram Abnormal mammogram, unspecified documented in this encounter Care Teams Curtain Worker Relationship Specialty Start Date End Date Grecia Solis APRN, CNP [address] [place] [address] PCP - General Advanced Practice Nurse 02/09/24 documented as of this encounter
--- OUTSIDE RECORDS SUMMARY | 2024-11-02 22:39 | XMS_ITS | Encounter Summary ---
Author Organization [facility] Address [address] [facility] [facility] [address] Phone Care Team Providers Care Air Hoist Operator Name Role Phone Grecia Solis APRN, CNP Primary Care P roluisana Reason for Referral * Radiology Services (Routine) - Closed Specialty Diagnoses / Procedures Referred By Cee ann Referred To Contact Radiology Diagnoses Abnormal mammogram Procedures [facility] BREAST LIMITED Grecia Monahan APRN, CNP [address] [place] [address] Phone: tel: fax: Referral ID Status Reason Start Date Expiration Date Visits Re quested Visits Authorized [id number] Closed 02/12/2024 1 1 Reason for Visit * Radiology Services (Routine) - Closed Specialty Diagnoses / Procedures Referred By Cee ann Referred To Contact Radiology Diagnoses Abnormal mammogram Procedures [facility] BREAST LIMITED Grecia Monahan APRN, CNP [address] [place] [address] Phone: tel: fax: Referral ID Status Reason Start Date Expiration Date Visits Re quested Visits Authorized [id number] Closed 02/12/2024 1 1 Encounter Details Date Type Department Care Team (Latest Contact Info) Description 03/05/2024 1:52 PM CDT - 03/05/2024 11:59 PM CDT Hospital Encounter [facility] Ultrasound [address] [place] [address] Grecia Solis APRN, COLLEGE ADVISOR [address] [place] [address] Discharge Disposition: Discharged to home or Selfcare Social History Tobacco Use Types Packs/Day Years Used Date Smoking Tobacco: Never Smokeless Tobacco: Never Alcohol Use Standard Drinks/Week Comments Not Currently 0 (1 standard drink = 0.6 oz pur e alcohol) [facility] Utilities Answer Date Recorded In the [...] often do you attend chur ch or religion services? Never 02/08/2024 Do you belong to any clubs o r organizations such as lutheran groups, unions, fraternal or athletic groups, or [...] medical care, and heating? Somewhat hard 02/08/2024 [facility] [place] of Occupat ional Health - Occupational Stress [...] st Contact Info) Description 11/08/2024 3:15 PM REVIEW MANAGER Office Visit [facility] - Primary Care - [place] [address] [place] [address] Grecia Solis APRN, COLLEGE ADVISOR [address] [place] [address] documented as of this encounter Procedures Procedure Name Priority Date/Time Associated Diagnosis Comments ITALO US BREAST LIMITED ARVIN Routine 03/05/2024 2:25 PM CDT Abnormal mammogram documented in this encounter Results * ITALO US BREAST LIMITED ARVIN (03/05/2024 2:25 PM [...] Comparison is made to exam dated: [facility] ?? BREAST TISSUE:There are scattered fibroglandular densities [...] Abimbola White M.D. ? ab/:03/05/2024 14:28:59 ?? Director Investor Relations(s): Leigha ?? RT Charles(Lino)(M), [facility]; Gabbi ??LOY Gonzales, [facility] letter sent: Jerica 3 Followup ?? Reading location: [facility] OVERALL STUDY BIRADS: 3 Probably benign [...] Comparison is made to exam dated: 02/10/2024 [facility]. BREAST TISSUE:There are scattered fibroglandular densities in [...] signed by: Abimbola White M.D. ab/:03/05/2024 14:28:59 Director Investor Relations(s): RT Db(R)(M), [facility]; Gabbi Gonzales RDMS OBGYN, [facility] letter sent: Birad 3 Followup Reading location: [facility] OVERALL STUDY BIRADS: 3 Probably benign us Grecia Solis APRN, CNP IMAlfie MAMMO ORDER ESTELLA Final Result documented in this encounter Visit Diagnoses Diagnosis Abnormal mammogram Abnormal mammogram, unspecified documented in this encounter Care Teams Air Hoist Operator Relationship Specialty Start Date End Date Grecia Solis APRN, CNP [address] [address] PCP - General Advanced Practice Nurse 02/09/24 documented as of this encounter
--- OUTSIDE RECORDS SUMMARY | 2024-11-02 22:39 | XMS_ITS | Encounter Summary ---
Author Organization [facility] Address [address] [facility] [place] [address] Phone Care Team Providers Care Glass Calibrator Name Role Phone Grecia Solis APRN, CNP Primary Care P rovider Tonja Yoo APRN, LEYDI Unavailable Encounter Details Date Type Department Care Team (Late st Contact Info) Description 04/09/2024 [facility] [address] [place] [phone] Tonja Yoo APRN, LEYDI [address] [address] Daytime sleepiness (Primary Dx); Suspected sleep apnea Social History Tobacco Use Types Packs/Day Years Used Date Smoking Tobacco: Never Smokeless Tobacco: Never Alcohol Use Standard Drinks/Week Comments Not Currently 0 (1 standard drink = 0.6 oz pur e alcohol) [facility] Utilities Answer Date Recorded In the past 12 months has [employer] electric, gas, oil, or water company threatened [...] often do you attend [facility] or scientology services? Never 02/08/2024 Do you belong to any clubs o r organizations such as islam groups, unions, fraternal or athletic groups, or [...] medical care, and heating? Somewhat hard 02/08/2024 [facility] of Occupat ional Health - [...] st Contact Info) Description 11/08/2024 3:15 PM NONPROFIT MANAGER Office Visit [facility] - Primary Care - [place] [address] [place] [phone] Grecia Solis APRN, CNP [address] [place] [address] documented as of this encounter Results * HOME SLEEP STUDY UNATTENDED TYPE III (04/14/2024) Tonja Yoo APRN, CNP SLEEP CENTER ORDERABL ES Final Result documented in this encounter Visit Diagnoses Diagnosis Daytime sleepiness- Primary Suspected sleep apnea documented in this encounter Care Teams Glass Calibrator Relationship Specialty Start Date End Date Grecia Solis APRN, CNP [address] [place] [address] PCP - General Advanced Practice Nurse 02/09/24 Tonja Yoo APRN, CNP [address] [address] Nurse Practitioner Advanced Practice Nurse 04/09/24 documented as of this encounter
--- OUTSIDE RECORDS SUMMARY | 2024-11-02 22:39 | XMS_ITS | Encounter Summary ---
Author Organization [facility] Address [address] [facility] [place] [address] Phone Care Team Providers Care Registrar Nurses' Registry Name Role Phone Grecia Solis APRN, CNP Primary Care P rovider Tonja Yoo APRN, CNP Unavailable [phone] Reason for Referral * Radiology Services (Routine) - Authorized Specialty Diagnoses / Procedures Referred By Contac t Referred To Contact Radiology Diagnoses Abnormal mammogram Procedures [facility] US BREAST LIMITED ARVIN Grecia Solis APRN, CNP [address] [place] [address] Phone: tel: fax: Referral ID Status Reason Start Date Expiration Date V isits Requested Visits Authorized [id number] Authorized 07/29/2024 1 1 * Radiology Services (Routine) - Authorized Specialty Diagnoses / Procedures Referred By Cee ann Referred To Contact Radiology Diagnoses Abnormal mammogram Procedures ITALO DIAG BILATERAL DIGITAL W CAD W RAJI Grecia Solis APRN, CNP [address] [place] [address] Phone: tel: fax: Referral ID Status Reason Start Date Expiration Date V isits Requested Visits Authorized [id number] Authorized 07/29/2024 1 1 Encounter Details Date Type Department Care Team (Latest Contact Info) Description 07/28/2024 Transcribe Orders [facility] Mammography [address] [place] [address] Grecia Solis APRN, CNP [address] [place] [address] Abnormal mammogram (Primary Dx) Social History Tobacco Use Types Packs/Day Years Used Date Smoking Tobacco: Former Cigarettes Smokeless Tobacco: Never Alcohol Use Standard Drinks/Week Comments Yes 0 (1 standard drink = 0.6 oz pur e alcohol) Rarely [facility] Utilities Answer Date Recorded In the [...] week 02/08/2024 How often do you attend [facility] or hindu services? Never 02/08/2024 Do you belong to any clubs o r organizations such as adventism groups, unions, fraternal or athletic groups, or [...] heating? Somewhat hard 02/08/2024 [facility] [place] of Occupat ional Health - Occupational Stress [...] st Contact Info) Description 11/08/2024 3:15 PM ADMISSIONS ASSISTANT Office Visit [facility] - Primary Care - [place] [address] [place] [phone] Grecia Solis APRN, LEYDI [address] [place] [address] Scheduled Orders Name Type Priority Associated Diagnoses Orde r Schedule ITALO DIAG BILATERAL DIGITAL W CAD W RAJI Imaging Routine Abnormal mammogram Expected: 09/05/2024, Expires: 01/26/2025 ITALO US BREAST LIMITED ARVIN Imaging Routine Abnormal mammogram Expected: 09/05/2024, Expires: 01/26/2025 documented as of this encounter Visit Diagnoses Diagnosis Abnormal mammogram- Primary Abnormal mammogram, unspecified documented in this encounter Care Teams Registrar Nurses' Registry Relationship Specialty Start Date End Date Grecia Solis APRN, LEYDI [address] [place] [address] PCP - General Advanced Practice Nurse 02/09/24 Tonja Yoo APRN, TEMPER MILL ROLLER [address] [address] Nurse Practitioner Advanced Practice Nurse 04/09/24 documented as of this encounter
--- OUTSIDE RECORDS SUMMARY | 2024-11-02 22:39 | XMS_ITS | Encounter Summary ---
Author Organization [facility] Address [address] [facility] [place] [place] [address] Phone Care Team Providers Care Guest Laundry Attendant Name Role Phone Grecia Solis APRN, CNP Primary Care P rovider Reason for Visit * Reason Onset Date Comments Prior Authorization 02/10/2024 laury Encounter Details Date Type Department Care Team ([facility] Contact Info) Description 02/10/2024 Telephone [facility] - Primary Care - [place] [address] [place] [address] Grecia Solis APRN, CNP [address] [place] [address] Prior Authorization (laury) Social History Tobacco Use Types Packs/Day Years Used Date Smoking Tobacco: Never Smokeless Tobacco: Never Alcohol Use Standard Drinks/Week Comments Not Currently 0 (1 standard drink = 0.6 oz pur e alcohol) [facility] Utilities Answer Date Recorded In the [...] often do you attend chur ch or jehovah's witness services? Never 02/08/2024 Do you belong to [...] medical care, and heating? Somewhat hard 02/08/2024 [facility] Occup[facility] ional [facility] - Occupational [...] place to sleep or slept in a penitentiary (including now)? No 02/08/2024 Comments No Sex and Gender Information Value Date Recorded Sex Assigned at Not on file Legal Sex Female 7:18 PM CDT Gender Identity Not on file Sexual Orientation Not on file documented as of this encounter Miscellaneous Notes * Telephone Encounter - Grecia Solis APRN, CNP - 02/20/2024 9:39 AM CDT Inform patient * Telephone Encounter - Aleida Tatum RN - 02/16/2024 10:48 AM CDT Images from the original note were not included. Current PA Status: Denied Denial Reasoning: SEE COMPLETED DENIAL LETTER UNDER THE MEDIA TAB 1. Option for Formulary or Alternatives: NA 2. Option to Appeal by either telephone or peer to peer consultation 3. Option to have patient utilize coupon or discount card for future scripts Routed to provider to review and follow up on patient care plan. ANMOL DAWKINS Medication Prior Authorization * Telephone Encounter - Aleida Tatum RN - 02/13/2024 3:53 PM CDT Current PA Status: Closed Status checked and response from payer for prior authorization on medication: Closed Closed Reasoning: This PA has , please either reinitiate the PA or contact the plan directly. Next Steps: Resubmitted ANMOL DAWKINS Medication Prior Authorization * Telephone Encounter - Manan Silverman RN - 02/10/2024 2:49 PM CDT Prior authorization request received from pharmacy for laury. ePA requested. documented in this encounter Plan of Treatment Upcoming Encounters Date Type Department Care Team (Late st Contact Info) Description 11/08/2024 3:15 PM MANAGER DISASTER RECOVERY Office Visit [facility] - Primary Care - [place] [address] [place] [id number] Grecia Solis APRN, WEATHER FORECASTER [address] [place] [address] documented as of this encounter Visit Diagnoses Not on filedocumented in this encounter Care Teams Guest Laundry Attendant Relationship Specialty Start Date End Date Grecia Solis APRN, WEATHER FORECASTER [address] [place], [place] [id number] PCP - General Advanced Practice Nurse 02/09/24 documented as of this encounter
--- OUTSIDE RECORDS SUMMARY | 2024-11-02 22:39 | XMS_ITS | Encounter Summary ---
Author Organization [employer] Care Team Providers Care Director Child Abuse Therapy Name Role Phone Grecia Solis APRN, FLAT LOCK MACHINE OPERATOR Primary Care P sofiader Tonja Yoo APRN, LEYDI Unavailable [phone] Encounter Details Date Type Department Care Team (Latest Contact Info) Description 07/13/2024 Travel Social History Tobacco Use Types Packs/Day Years Used Date Smoking Tobacco: Former Cigarettes Smokeless Tobacco: Never Alcohol Use Standard Drinks/Week Comments Yes 0 (1 standard drink = 0.6 oz pur e alcohol) Rarely [facility] Utilities Answer Date Recorded In the past 12 months has [employer] electric, gas, oil, or water company threatened [...] week 02/08/2024 How often do you attend [facility] or taoism services? Never 02/08/2024 Do you belong to any clubs o r organizations such as oriental orthodox groups, unions, fraternal or athletic groups, or [...] medical care, and heating? Somewhat hard 02/08/2024 [facility] Occupat ional Health - Occupational [...] place to sleep or slept in a assisted (including now)? No 02/08/2024 Comments No Sex and Gender Information Value Date Recorded Sex Assigned at Not on file Legal Sex Female 7:18 PM CDT Gender Identity Not on file Sexual Orientation Not on file documented as of this encounter Plan of Treatment Upcoming Encounters Date Type Department Care Team (Late st Contact Info) Description 11/08/2024 3:15 PM AUTOMATION SPECIALIST [facility] - Primary Care - [place] [address] [place] [phone] Grecia Solis APRN, LEYDI [address] [place] [address] documented as of this encounter Visit Diagnoses Not on filedocumented in this encounter Care Teams Director Child Abuse Therapy Relationship Specialty Start Date End Date Grecia Solis APRN, LEYDI [address] [place] [address] PCP - General Advanced Practice Nurse 02/09/24 Tonja Yoo APRN, LEYDI [address] [address] Nurse Practitioner Advanced Practice Nurse 04/09/24 documented as of this encounter
--- OUTSIDE RECORDS SUMMARY | 2024-11-02 22:39 | XMS_ITS | Encounter Summary ---
Author Organization [facility] Address [address] [facility] [place] [address] Phone Care Team Providers Care Process Trainer Name Role Phone Grecia Solis APRN, CNP Primary Care P rosanne Reason for Visit * Reason Onset Date Comments Medication Management 02/16/2024 Encounter Details Date Type Department Care Team (Late st Contact Info) Description 02/16/2024 Telephone [facility] [address] [place] [address] Grecia Solis APRN, DIRECTOR OF OUTPATIENT SERVICES [address] [place] [address] Medication Management Social History Tobacco Use Types Packs/Day Years Used Date Smoking Tobacco: Never Smokeless Tobacco: Never Alcohol Use Standard Drinks/Week Comments Not Currently 0 (1 standard drink = 0.6 oz pur e alcohol) [facility] Utilities Answer Date Recorded In the past 12 months has [employer], gas, oil, or water [employer] threatened to shut off services in your [...] week 02/08/2024 How often do you attend [facility] or yazidism services? Never 02/08/2024 Do you belong to any clubs o r organizations such as scientologist groups, unions, fraternal or athletic groups, or [...] heating? Somewhat hard 02/08/2024 [facility] of Occupat ional [facility] - Occupational Stress Questionnaire Answer Date [...] encounter Miscellaneous Notes * Telephone Encounter - Silvia Colmenares - 02/16/2024 9:52 AM CDT RFC: Avani is calling with PA from [facility] to let Grecia Solis know that her We[employer] was denied due to it not being covered by insurance. Ref number is [id number]. Please call Tayla [phone] (relationship to patient self) back regarding above referenced patient. Patient's Provider is Will. documented in this encounter Plan of Treatment Upcoming Encounters Date Type Department Care Team (Late st Contact Info) Description 11/08/2024 3:15 PM SOFTWARE TEAM LEADER [facility] - Primary Care - [place] [address] [place] [phone] Grecia Solis APRN, DIRECTOR OF OUTPATIENT SERVICES [address] [place] [address] documented as of this encounter Visit Diagnoses Not on filedocumented in this encounter Care Teams Process Trainer Relationship Specialty Start Date End Date Grecia Solis APRN, CNP [address] [place] [address] PCP - General Advanced Practice Nurse 02/09/24 documented as of this encounter
--- OUTSIDE RECORDS SUMMARY | 2024-11-02 22:39 | XMS_ITS | Encounter Summary ---
Author Organization [facility] Address [address] [facility] [place] [address] Phone Care Team Providers Care Head Of Music Name Role Phone Grecia Solis APRN, LEYDI Primary Care P rovider Tonja Yoo APRN, CNP Unavailable Reason for Visit * Reason Onset Date Comments Allergies 05/27/2024 Encounter Details Date Type Department Care Team (Late st Contact Info) Description 05/27/2024 Nurse Triage [facility] [address] [place] [address] Grecai Solis APRN, IT TECHNICAL SUPPORT SPECIALIST [address] [place] [address] Allergies Social History Tobacco Use Types Packs/Day Years Used Date Smoking Tobacco: Former Cigarettes Smokeless Tobacco: Never Alcohol Use Standard Drinks/Week Comments Yes 0 (1 standard drink = 0.6 oz pur e alcohol) Rarely [facility] Utilities Answer Date Recorded In the past 12 months has [employer] electric, gas, oil, or water company threatened [...] How often do you attend [facility] or spiritism services? Never 02/08/2024 Do you belong to any clubs o r organizations such as protestant groups, unions, fraternal or athletic groups, or [...] medical care, and heating? Somewhat hard 02/08/2024 [facility] of Occupat ional [facility] - Occupational Stress Questionnaire Answer Date [...] place to sleep or slept in a senior living (including now)? No 02/08/2024 Comments No Sex and Gender Information Value Date Recorded Sex Assigned at Not on file Legal Sex Female 7:18 PM CDT Gender Identity Not on file Sexual Orientation Not on file documented as of this encounter Miscellaneous Notes * Telephone Encounter - Latisha Allen RN - 05/27/2024 4:11 PM CDT Tayla notified, verbalized understanding. Requesting [employer] message with provider recommendations. [employer] message sent. * Telephone Encounter - Grecia Solis APRN, CNP - 05/27/2024 3:37 PM CDT Could try flonase and zyrtec, mucinex DM. Saline nasal spray frequently. * Telephone Encounter - Lia Blancas RN - 05/27/2024 3:25 PM CDT SITUATION: itchy throat/allergies BACKGROUND: Had for a couple weeks, went away for two weeks and is now back ASSESSMENT: Symptom Description / Location: Itchy throat causing patient to cough Denies cough any other time Throat gets sore from coughing but denies sore throat otherwise Night time is the worst Will be a lot of coughing at times from the itchiness-some days worse than others-today is not too bad Sometimes nose will get stuffy at night but not horrible Denies: Drainage down back of throat Runny nose Pain: na Temp (route / time): denies fever Treatment / Response: tacos riojas no relief RECOMMENDATION: See care advice and disposition for Guideline. Patient triages to be seen today in office due to lots of coughing. Patient doesn't always have lots of coughing, just at times. No appointments available patient can make. Was wondering if provider had any further recommendations on what she can take to get rid of the itchiness in her throat. This RN did advise her she can try claritin since that is one over the counter medication she hasn't tried yet. Patient will try this tonight. Please advise on further recommendations. Please send [employer] message to patient with any further recommendations. Allergies, medications and pharmacy verified. First positive answer recorded, all responses to prior questions were negative. If symptoms increase, change or if new symptoms develop, call your HCP or call back. Recommendations were based on caller information and is not a diagnosis. Verified and reviewed all triage information with caller. Reason for Disposition Lots of coughing Protocols used: Nasal Allergies (Hay Fever)-A-OH * Telephone Encounter - Corazon Graff - 05/27/2024 3:17 PM CDT Symptoms: Cough, Nasal Allergies (Hay Fever) Outcome: Schedule an appointment at earliest convenience. Reason: Caller denied all higher acuity questions The caller rejected this outcome. Caller denied: * Struggling for each breath (severe trouble breathing) * Choked on something * Any trouble breathing * Wheezing (high-pitched whistling sound) * Fever * Can't stop coughing documented in this encounter Plan of Treatment Upcoming Encounters Date Type Department Care Team (Late st Contact Info) Description 11/08/2024 3:15 PM PUBLIC RELATIONS SALES MARKETING Office Visit [facility] - Primary Care - [place] [address] [place] [address] Grecia Solis, KILN REPAIRER, IT TECHNICAL SUPPORT SPECIALIST [address] [place] [address] documented as of this encounter Visit Diagnoses Not on filedocumented in this encounter Care Teams Head Of Music Relationship Specialty Start Date End Date Grecia Solis APRN, IT TECHNICAL SUPPORT SPECIALIST [address] [place], [place] [address] PCP - General Advanced Practice Nurse 02/09/24 Tonja Yoo APRN, IT TECHNICAL SUPPORT SPECIALIST #[address] [address] Nurse Practitioner Advanced Practice Nurse 04/09/24 documented as of this encounter
--- OUTSIDE RECORDS SUMMARY | 2024-11-02 22:39 | XMS_ITS | Encounter Summary ---
Author Organization [facility] Address [address] [place] [address] Phone Care Team Providers Care Gas Plumbing Inspector Name Role Phone Grecia Solis APRN, CNP Primary Care P rosanne Encounter Details Date Type Department Care Team (Late st Contact Info) Description 03/12/2024 8:20 AM CDT Lab [facility] - Primary Care - [address] [phone] Lab, [facility] Preventative health care (Adult) Discharge Disposition: Discharged to home or Selfcare Social History Tobacco Use Types Packs/Day Years Used Date Smoking Tobacco: Never Smokeless Tobacco: Never Alcohol Use Standard Drinks/Week Comments Not Currently 0 (1 standard drink = 0.6 oz pur e alcohol) [facility] Utilities Answer Date Recorded In the past 12 months has [employer], gas, oil, or water company threatened [...] often do you attend chur ch or anabaptism services? Never 02/08/2024 Do you belong to any clubs o r organizations such as mandaen groups, unions, fraternal or athletic groups, or [...] medical care, and heating? Somewhat hard 02/08/2024 [facility] [place] of Occupat ional Health - Occupational Stress [...] as of this encounter Progress Notes * Jonelle Drew - 03/12/2024 8:20 AM CDT Tayla presents for lab draw per order of Grecia Solis BR[place] dated 03/12/24. Specimen collected from right antecubital without incident. sah Cosigned by Grecia Solis APRN, CNP at 03/15/2024 10:05 AM CDT documented in this encounter Plan of Treatment Upcoming Encounters Date Type Department Care Team (Late st Contact Info) Description 11/08/2024 3:15 PM TELE GROUT SEWER LINE REPAIRER Office Visit [facility] - Primary Care - [place] [address] [place] [phone] Grecia Solis APRN, CNP [address] [place] [address] documented as of this encounter Procedures Procedure Name Priority Date/Time Associated Diagnosis Comments THYROID SCREEN WITH REFLEX Routine 03/12/2024 7:46 AM CDT Preventative health care (Adult) THYROID SCREEN WITH REFLEX Routine 03/12/2024 7:46 AM CDT Preventative health care (Adult) HEMOGLOBIN A1C W/ ESTIMATED GLUCOSE Routine 03/12/2024 7:46 AM CDT Preventative health care (Adult) CBC WITH AUTO DIFFERENTIAL Routine 03/12/2024 7:46 AM CDT Preventative health care (Adult) LIPID PANEL Routine 03/12/2024 7:46 AM CDT Preventative health care (Adult) HEPATITIS C ANTIBODY Routine 03/12/2024 7:46 AM CDT Preventative health care (Adult) CMP (COMPREHENSIVE METABOLIC PANEL) Routine 03/12/2024 7:46 AM CDT Preventative health care (Adult) COMPLETE BLOOD COUNT (CBC) WITH DIFF Routine 03/12/2024 7:46 AM CDT Preventative health care (Adult) documented in this encounter Results * THYROID SCREEN WITH REFLEX (03/12/2024 7:46 AM CDT) TSH 1.790 0.300 - 5.000 mIU/L 03/12/2024 1:04 PM CDT [facility] Blood Venipuncture / Unknown 03/12/2024 7:46 AM CDT 03/12/2024 7:46 AM CDT Grecia Solis APRN, CNP CHEMISTRY ORDER ESTELLA Final Result [facility] [address] [place] [address] * (ABNORMAL) CBC WITH AUTO DIFFERENTIAL (03/12/2024 7:46 AM CDT) WBC 5.18 4.00 - 12.00 10(3)/mcL 03/12/2024 12:32 PM CDT [facility] RBC 4.71 3.80 - 5.30 10(6)/mcL 03/12/2024 12:32 PM CDT [facility] HEMOGLOBIN (HGB) 14.2 12.0 - 15.8 g/dL 03/12/2024 12:32 PM CDT [facility] HEMATOCRIT (HCT) 44.2 36.0 - 47.0 % 03/12/2024 12:32 PM CDT [facility] MCV 93.8 82.0 - 96.0 fL 03/12/2024 12:32 PM CDT [facility] MCH 30.1 26.0 - 34.0 pg 03/12/2024 12:32 PM CDT [facility] MCHC 32.1 31.0 - 36.0 g/dL 03/12/2024 12:32 PM CDT [facility] PLATELET COUNT 205 140 - 440 10(3)/mcL 03/12/2024 12:32 PM CDT [facility] RDW 12.9 11.8 - 15.5 % 03/12/2024 12:32 PM CDT [facility] MPV 11.9 9.7 - 12.4 fL 03/12/2024 12:32 PM CDT [facility] NEUTROPHILS 50.5 47.0 - 73.0 % 03/12/2024 12:32 PM CDT [facility] LYMPHOCYTES 35.7 18.0 - 42.0 % 03/12/2024 12:32 PM CDT [facility] MONOCYTES 9.7 4.0 - 12.0 % 03/12/2024 12:32 PM CDT [facility] EOSINOPHILS 2.9 0.0 - 5.0 % 03/12/2024 12:32 PM CDT [facility] BASOPHILS 1.2(H) 0.0 - 1.0 % 03/12/2024 12:32 PM CDT [facility] ABSOLUTE NEUTROPHILS 2.62 1.60 - 7.70 10(3)/mcL 03/12/2024 12:32 PM CDT [facility] ABSOLUTE LYMPHOCYTES 1.85 1.30 - 3.20 10(3)/mcL 03/12/2024 12:32 PM CDT [facility] ABSOLUTE MONOCYTES 0.50 0.20 - 1.00 10(3)/mcL 03/12/2024 12:32 PM CDT [facility] ABSOLUTE EOSINOPHIL 0.15 0.00 - 0.40 10(3)/mcL 03/12/2024 12:32 PM CDT [facility] ABSOLUTE BASOPHILS 0.06 0.00 - 0.10 10(3)/mcL 03/12/2024 12:32 PM CDT [facility] NRBC PER 100 WBC 0 03/12/20 12:32 PM CDT [facility] Blood Venipuncture / Unknown 03/12/2024 7:46 AM CDT 03/12/2024 7:46 AM CDT us Grecia Solis APRN, LEYDI HEMATOLOGY ORDE GINA Final Result [facility] [address] [place] [address] * (ABNORMAL) LIPID PANEL (03/12/2024 7:46 AM CDT) CHOLESTEROL 140 <200 mg/dL 03/12/2024 12:54 PM CDT [facility] TRIGLYCERIDES 39 <150 mg/dL 03/12/2024 12:54 PM CDT [facility] HDL CHOLESTEROL 58 >40 mg/dL 12:54 PM CDT [facility] LDL 74 <130 mg/dL 03/12/2024 12:54 PM CDT [facility] VLDL 8(L) 10 - 50 mg/dL 03/12/2024 12:54 PM CDT [facility] CHOL/HDL RATIO 2.4 0.0 - 4.4 03/12/2024 12:54 PM CDT [facility] NON-HDL CHOLESTEROL 82 <130 mg/dL 03/12/2024 12:54 PM CDT [facility] IS THE PATIENT REQUIRED TO BE FASTING? Yes 03/12/2024 12:54 PM CDT [facility] HAS THE PATIENT BEEN FASTING? Yes 03/12/2024 12:54 PM CDT [facility] Blood Venipuncture / Unknown 03/12/2024 7:46 AM CDT 03/12/2024 7:46 AM CDT Grecia Solis APRN, MEDICAL ASSISTANT CHEMISTRY ORDER ESTELLA Final Result Performing Organization Address City/[facility]/ZIP Co de Phone Number [facility] [address] [place] [address] * HEMOGLOBIN A1C W/ ESTIMATED GLUCOSE (03/12/2024 7:46 AM CDT) [facility] [address] HGB-A1C 5.9 4.0 - 6.0 % 03/12/2024 12:57 PM CDT [facility] Est Average Glucose 122.6 mg/dL 03/12/2024 12:57 PM CDT [facility] Blood Venipuncture / Unknown 03/12/2024 7:46 AM CDT 03/12/2024 7:46 AM CDT Narrative [facility] - 03/12/2024 12:57 PM CDT HEMOGLOBIN A1C: DIABETIC PATIENTS: WELL-CONTROLLED: ?? 6.2 - 7.0 INTERMEDIATE WELL-CONTROLLED: ??7.0 - 9.0 POORLY-CONTROLLED: ??>9.0 Grecia Solis APRN, LEYDI CHEMISTRY ORDER ESTELLA Final Result Performing Organization Address City/[facility] de Phone Number [facility] [address] [place] [address] * HEPATITIS C ANTIBODY (03/12/2024 7:46 AM CDT) Pathologist [facility] hepatitis C antibody 0.10 <1 S/CO 03/12/2024 9:35 PM CDT [facility] Comment: Signal/Cutoff ratio ??< 0.79 is Nondetected Signal/Cutoff ratio 0.80-0.99 is Grayzone Signal/Cutoff ratio > 0.99 is Detected Supplemental assays are recommended if signal/cutoff ratio is >/=1.00. ??Signal/cutoff ratio result >/= 5.00 is 97% predictive of positivity for recombinant immunoblot assay (RIBA) and will be reported to the [place] Department of Public Health as required. Blood Venipuncture / Unknown 03/12/2024 7:46 AM CDT 03/12/2024 7:46 AM CDT us Grecia Solis APRN, CNP CHEMISTRY ORDER ESTELLA Final Result [facility] [address] [place] [address], * (ABNORMAL) CMP (COMPREHENSIVE METABOLIC PANEL) (03/12/2024 7:46 AM CDT) SODIUM 145 136 - 145 mmol/L 03/12/2024 12:54 PM CDT [facility] POTASSIUM 4.9 3.5 - 5.1 mmol/L 03/12/2024 12:54 PM CDT [facility] CHLORIDE 110(H) 98 - 107 mmol/L 03/12/2024 12:54 PM CDT [facility] CO2, VENOUS 23 22 - 30 mmol/L 03/12/2024 12:54 PM CDT [facility] ANION GAP 16.9 <18.0 mmol/L 03/12/2024 12:54 PM CDT [facility] GLUCOSE 108(H) 70 - 99 mg/dL 03/12/2024 12:54 PM CDT [facility] BUN 18 10 - 20 mg/dL 03/12/2024 12:54 PM CDT [facility] CREATININE, BLOOD 0.90 0.60 - 1.00 mg/dL 03/12/2024 12:54 PM CDT [facility] BUN/CREATININE RATIO 20 12 - 20 ratio 03/12/2024 12:54 PM CDT [facility] TOTAL PROTEIN 7.0 6.3 - 8.2 g/dL 03/12/2024 12:54 PM CDT [facility] ALBUMIN 4.2 3.5 - 5.0 g/dL 03/12/2024 12:54 PM CDT [facility] A/G RATIO 1.5 1.0 - 2.2 03/12/2024 12:54 PM CDT [facility] CALCIUM 9.8 8.7 - 10.5 mg/dL 03/12/2024 12:54 PM CDT [facility] T BILI 0.4 0.2 - 1.2 mg/dL 03/12/2024 12:54 PM CDT [facility] SGOT (AST) 20 5 - 34 U/L 03/12/2024 12:54 PM CDT [facility] SGPT (ALT) 35 0 - 55 U/L 03/12/2024 12:54 PM CDT [facility] ALKALINE PHOSPHATASE 83 40 - 150 U/L 03/12/2024 12:54 PM CDT [facility] IS THE PATIENT REQUIRED TO BE FASTING? No 03/12/2024 12:54 PM CDT [facility] GFR, ESTIMATED >60 >=60 03/12/2024 12:54 PM CDT [facility] Comment: Creatinine Clearance is the preferred criteria for selecting drug dose adjustments in renally impaired patients. ??The GFR is provided as additional pertinent clinical information. GFR is reported in mL/min/1.73 sq m. Calculation based on the Chronic Kidney Disease Epidemiology Collaboration (CKD- EPI) equation refit without adjustment for race. GFR, EST. >60 >=60 024 12:54 PM CDT [facility] GFR, EST. NONAFRICAN >60 >=60 03/12/2024 12:54 PM CDT [facility] Blood Venipuncture / Unknown 03/12/2024 7:46 AM CDT 03/12/2024 7:46 AM CDT us Grecia Solis APRN, CNP CHEMISTRY ORDER ESTELLA Final Result [facility] [address] [place] [address] documented in this encounter Visit Diagnoses Diagnosis Preventative health care (Adult) Routine general medical examination at a health care facility documented in this encounter Care Teams Gas Plumbing Inspector Relationship Specialty Start Date End Date Grecia Solis APRN, CNP [address] [place] [address] PCP - General Advanced Practice Nurse 02/09/24 documented as of this encounter
--- OUTSIDE RECORDS SUMMARY | 2024-11-02 22:39 | XMS_ITS | Encounter Summary ---
Author Organization [facility] Address [address] [place] [address] Phone Care Team Providers Care Fuse Coiler Name Role Phone Grecia Solis APRN, CNP Primary Care P rosanne Reason for Referral * Consult, Test & Initiate Treatment (Routine) - Closed Specialty Diagnoses / Procedures Referred By Cee ann Referred To Contact Diagnoses Suspected sleep apnea Grecia Solis APRN, CNP [address] [place] [address] Phone: tel: fax: [facility] - Pulmonology & Sleep Medicine [facility] [place] [address] Phone: tel: fax: Referral ID Status Reason Start Date Expiration Date Visits Re quested Visits Authorized [id number] Closed 03/18/2024 1 1 Scheduling Instructions Tayla is being referred for tamara terrell. Please contact patient for scheduling questions or concerns. Reason for Visit * Reason Comments Follow-up Encounter Details Date Type Department Care Team ([facility] st Contact Info) Description 03/18/2024 3:15 PM CDT Office Visit [facility] - Primary Care - [place] [address] [place] [phone] Grecia Solis APRN, INJECTION MOLDING TECHNICIAN [address] [place] [address] Essential hypertension (Primary Dx); Primary insomnia; Class 3 severe obesity due to excess calories with serious comorbidity and body mass index (BMI) of 40.0 to 44.9 in adult (HCC); Suspected sleep apnea Discharge Disposition: Discharged to home or Selfcare Social History Tobacco Use Types Packs/Day Years Used Date Smoking Tobacco: Never Smokeless Tobacco: Never Tobacco Cessation:Counseling Given: No Alcohol Use Standard Drinks/Week Comments Not Currently 0 (1 standard drink = 0.6 oz pur e alcohol) [facility] Utilities Answer Date Recorded In the past 12 months has e [employer], gas, oil, or water [employer] threatened to shut off services in your [...] often do you attend chur ch or confucianism services? Never 02/08/2024 Do you belong to [...] medical care, and heating? Somewhat hard 02/08/2024 [facility] [place] of Occupat ional Health - Occupational Stress [...] place to sleep or slept in a fci (including now)? No 02/08/2024 Comments No Sex and Gender Information Value Date Recorded Sex Assigned at Not on file Legal Sex Female 7:18 PM CDT Gender Identity Not on file Sexual Orientation Not on file documented as of this encounter Last Filed Vital Signs Vital Sign Reading Time Taken Comments Blood Pressure 146/84 03/18/2024 3:12 PM CDT Pulse 68 03/18/2024 3:12 PM CDT Temperature 36.2 ??C (97.1 ??F) 03/18/2024 3:12 PM CD T Respiratory Rate 20 03/18/2024 3:12 PM CDT Oxygen Saturation 97% 03/18/2024 3:12 PM CDT Inhaled Oxygen Concentration - - Weight 137.9 kg (304 lb) 03/18/2024 3:12 PM CDT Height - - Body Mass Index 44.89 02/09/2024 3:27 PM CDT documented in this encounter Patient Instructions * Patient Instructions* Grecia Solis APRN, CNP - 03/18/2024 3:15 PM CDT Continue with current meds. Start lisinopril-hydrochlorothiazide 10mg-12.5mg as sent to pharmacy. Please continue with a balanced lifestyle of exercise and healthy eating. If any question, please call. Thanks for coming in today! documented in this encounter Progress Notes * Diann Santos CMA - 03/18/2024 3:15 PM CDT Tayla Johnson, 48 y.o., female is here for No chief complaint on file. Medication Refills: Patient reports/denies need for medication refills. Orders Pended: no Requested Prescriptions No prescriptions requested or ordered in this encounter Home Medications Medication Sig Start Date End Date Taking? Authorizing Provider amLODIPine (NORVASC) 10 MG Tablet Take 1 Tablet by mouth daily. 02/09/24 Yes Grecia Solis APRN, CNP hydrOXYzine (ATARAX) 25 MG Tablet Take 1 Tablet by mouth nightly as needed for Sleep. 02/09/24 Yes Grecia Solis APRN, CNP semaglutide-weight management (Wegovy) 0.25 MG/0.5ML Solution Auto-injector 0.25 mg by Subcutaneousroute once a week. Patient not taking: Reported on 03/18/2024 02/09/24 Grecia Solis APRN, CNP sertraline (ZOLOFT) 100 MG Tablet Take 50 mg by mouth daily. Yes Provider, MD Elena There are no discontinued medications. I have reviewed the home medication list with the patient and have reconciled discrepancies. The list is accurate to the best of my knowledge. Smoking Status: Social History Tobacco Use Smoking status: Never Smokeless tobacco: Never Vaping Use Vaping Use: Every day Substance Use Topics Alcohol use: Not Currently Drug use: Never Smoking Cessation Counseling Given: no Health Care Maintenance: Health Maintenance Due Topic Date Due TdaP Immunization Never done Hepatitis B Immunization (1 of 3 - 19+ 3-dose series) Never done Cervical Cancer Screening (CCS) Never done SARS-COV-2 Immunization ( season) Never done Zoster Immunization (1 of 2) Never done Orders Pended: no The following BPA's have been addressed with the patient today: N/A * Grecia Solis APRN, CNP - 03/18/2024 3:15 PM CDT [facility] [address] [address] Dept: [phone] Dept Loc: [phone] Loc Patient: Tayla Johnson : 1975 Sex: female Subjective: HPI: Tayla Johnson presents for Follow-up Patient was seen 6 weeks ago. At that time Wegovy was sent to pharmacy but it was denied by insurance. Her sertraline was decreased to 50 mg. Her amlodipine was increased to 10 mg for her blood pressure and she was started on hydroxyzine at night for sleep. Her blood pressure continues to be elevated at 146/84 today. This is improved from her previous. States her sleep as improved with hydroxyzine but still day time fatigue. Unsure if she snores. States the sertraline 50mg has helped with her numb feeling and not having emotions. States she is feeling more stable with the dose decrease. ROS Fourteen point review of systems negative except as documented in HPI. Objective: Vitals: 03/18/24 1512 BP: 146/84 Pulse: 68 Resp: 20 Temp: 97.1 ??F (36.2 ??C) SpO2: 97% Weight: 304 lb (137.9 kg) LMP: No LMP recorded. Patient is postmenopausal. Body mass index is 44.89 kg/m??. Physical Exam Vitals and nursing note reviewed. Constitutional: General: She is not in acute distress. Appearance: She is well-developed. HENT: Head: Normocephalic and atraumatic. Right Ear: External ear normal. Left Ear: External ear normal. Mouth/Throat: Mouth: Mucous membranes are moist. Pharynx: Oropharynx is clear. Eyes: Conjunctiva/sclera: Conjunctivae normal. Neck: Vascular: No carotid bruit. Cardiovascular: Rate and Rhythm: Normal rate and regular rhythm. Heart sounds: Normal heart sounds. Pulmonary: Effort: Pulmonary effort is normal. No respiratory distress. Breath sounds: Normal breath sounds. Musculoskeletal: Right lower leg: No edema. Left lower leg: No edema. Skin: General: Skin is warm and dry. Neurological: Mental Status: She is alert and oriented to person, place, and time. Psychiatric: Mood and Affect: Mood normal. Behavior: Behavior normal. Thought Content: Thought content normal. Judgment: Judgment normal. Medical Decision Making: Assessment & Plan Diagnoses and all orders for this visit: Essential hypertension - lisinopril-hydroCHLOROthiazide (PRINZIDE, ZESTORETIC) 10-12.5 MG Tablet; Take 1 Tablet by mouth daily. Primary insomnia Class 3 severe obesity due to excess calories with serious comorbidity and body mass index (BMI) of40.0 to 44.9 in adult (HCC) Suspected sleep apnea - PULMONARY REFERRAL; Future Start lisinopril-hctz See pulm for poss terrell Cont with sertraline 50mg and trazodone for sleep Follow-up Information Return in 6 weeks (on 04/29/2024), or if symptoms worsen or fail to improve, for HTN check. LOS Today OFFICE/OP EST LVL 4 MOD MDM/30-39 MIN documented in this encounter Plan of Treatment Upcoming Encounters Date Type Department Care Team (Late st Contact Info) Description 11/08/2024 3:15 PM RETAIL SERVICE SPECIALIST Office Visit [facility] - Primary Care - [place] [address] [place] [phone] Grecia Solis APRN, CNP [address] [facility] [place] [address] Scheduled Referrals Name Type Priority Associated Diagnoses Orde r Schedule PULMONARY REFERRAL Outpatient Referral Routine Suspected sleep apnea Expected: 03/18/2024, Expires: 03/18/2025 documented as of this encounter Visit Diagnoses Diagnosis Essential hypertension- Primary Unspecified essential hypertension Primary insomnia Persistent disorder of initiating or maintaining sleep Class 3 severe obesity due to excess calories with serious comorbidity and body mass index (BMI) of 40.0 to 44.9 in adult (HCC) Suspected sleep apnea documented in this encounter Care Teams Fuse Coiler Relationship Specialty Start Date End Date Grecia Solis APRN, LEYDI [address] [place] [address] PCP - General Advanced Practice Nurse 02/09/24 documented as of this encounter
--- OUTSIDE RECORDS SUMMARY | 2024-11-02 22:39 | XMS_ITS | Encounter Summary ---
Author Organization [facility] Address [address] [place] [address] Phone Care Team Providers Care Biology Professor Name Role Phone Ella Hernandez APRN, LEYDI Primary Care P rovider Tonja Yoo APRN, CNP Unavailable Reason for Visit * Reason Comments Essential hypertension Follow-up Six week Encounter Details Date Type Department Care Team (Late st Contact Info) Description 05/06/2024 3:15 PM CDT Office Visit [facility] - Primary Care - [place] [address] [place] [address] Ella Hernandez APRN, LEYDI [address] [place] [address] Essential hypertension (Primary Dx); Primary insomnia; Anxiety and depression Discharge Disposition: Discharged to home or Selfcare Social History Tobacco Use Types Packs/Day Years Used Date Smoking Tobacco: Former Cigarettes Smokeless Tobacco: Never Alcohol Use Standard Drinks/Week Comments Yes 0 (1 standard drink = 0.6 oz pur e alcohol) Rarely [facility] Utilities Answer Date Recorded In [...] How often do you attend chur or cheondoism services? Never 02/08/2024 Do you belong to any clubs o r organizations such as jew groups, unions, fraternal or athletic groups, or [...] Sign Reading Time Taken Comments Blood Pressure 118/76 05/06/2024 3:10 PM CDT Pulse 62 05/06/2024 3:10 PM CDT Temperature 36.9 ??C (98.5 ??F) 05/06/2024 3:10 PM CD T Respiratory Rate 20 05/06/2024 3:10 PM CDT Oxygen Saturation 98% 05/06/2024 3:10 PM CDT Inhaled Oxygen Concentration - - Weight 135.6 kg (299 lb) 05/06/2024 3:10 PM CDT Height 175.3 cm (5' 9 ) 05/06/2024 3:10 PM CDT Body Mass Index 44.15 05/06/2024 3:10 PM CDT documented in this encounter Patient Instructions * Patient Instructions* Ella Hernandez APRN, LEYDI - 05/06/2024 3:15 PM CDT Take all medications as prescribed. Please continue with a balanced lifestyle of exercise and healthy eating. If any question, please call. Thanks for coming in today! documented in this encounter Progress Notes * Donald Arias, ELECTRICAL TRYOUT PERSON - 05/06/2024 3:15 PM CDT Tayla Johnson, 48 y.o., female is here for Essential hypertension and Follow-up (Six week ) Medication Refills: Patient reports/denies need for medication refills. Orders Pended: yes Requested Prescriptions No prescriptions requested or ordered in this encounter Home Medications Medication Sig Start Date End Date Taking? Authorizing Provider amLODIPine (NORVASC) 10 MG Tablet Take 1 Tablet by mouth daily. 02/09/24 Ella Hernandez APRN, CNP hydrOXYzine (ATARAX) 25 MG Tablet Take 1 Tablet by mouth nightly as needed for Sleep. 02/09/24 Ella Hernandez APRN, CNP lisinopril-hydroCHLOROthiazide (PRINZIDE, ZESTORETIC) 10-12.5 MG Tablet Take 1 Tablet by mouth daily. 03/18/24 Ella Hernandez APRN, CNP sertraline (ZOLOFT) 100 MG Tablet Take 50 mg by mouth daily. Provider, MD Elena There are no discontinued medications. I have reviewed the home medication list with the patient and have reconciled discrepancies. The list is accurate to the best of my knowledge. Smoking Status: Social History Tobacco Use Smoking status: Never Smokeless tobacco: Never Vaping Use Vaping status: Every Day Substance Use Topics Alcohol use: Not Currently Drug use: Never Smoking Cessation Counseling Given: no Health Care Maintenance: Health Maintenance Due Topic Date Due TdaP Immunization Never done Hepatitis B Immunization (1 of 3 - 19+ 3-dose series) Never done Cervical Cancer Screening (CCS) Never done SARS-COV-2 Immunization (2022- season) Never done Zoster Immunization (1 of 2) Never done Orders Pended: no The following BPA's have been addressed with the patient today: Pt presents today for her six week f/u visit. Pt will need a refill of the sertraline 100 mg. * Ella Hernandez APRN, CNP - 05/06/2024 3:15 PM CDT [facility] - [facility] - [address] [address] Dept: [phone] Dept Loc: [phone] Loc Patient: Tayla Johnson : 1975 Sex: female Subjective: HPI: Tayla Johnson presents for Essential hypertension and Follow-up (Six week ) Patient was seen 6 weeks ago for hypertension. She was started on lisinopril- hydrochlorothiazide 10-12.5 mg daily. Today her BP is 118/76. Denies any acute concerns. Reports sleep ok. ROS Fourteen point review of systems negative except as documented in HPI. Objective: Vitals: 05/06/24 1510 BP: 118/76 BP Location: Right Arm BP Position: Sitting BP Cuff Size: Large Pulse: 62 Resp: 20 Temp: 98.5 ??F (36.9 ??C) TempSrc: Oral SpO2: 98% Weight: 299 lb (135.6 kg) Height: 5' [...] all orders for this visit: Essential hypertension Primary insomnia Other orders - Vitamin D-Vitamin K (VITAMIN K2-VITAMIN D3 PO); Take by mouth daily. No med changes. Continue to monitor BP at home, call if elevations occur. Appointment in 6mo Previous labs great, repeat them in 1y Follow-up Information Return in 6 months (on 11/06/2024), or if symptoms worsen or fail to improve, for 6mo routine, HTN insomnia, no labs needed. LOS Today OFFICE/OP EST LVL 3 LOW MDM/20-29 MIN documented in this encounter Miscellaneous Notes * Addendum Note - Ella Hernandez APRN, CNP - 05/06/2024 3:15 PM CDT Addended by: ELLA HERNANDEZ on: 05/06/2024 03:30 PM Modules accepted: Orders documented in this encounter Plan of Treatment Upcoming Encounters Date Type Department Care Team (Late st Contact Info) Description 11/08/2024 3:15 PM NEONATAL CRITICAL CARE NURSE Office Visit [facility] - Primary Care - [place] [address] [place] [address] Ella Hernandez APRN, CNP [address] [place] [address] documented as of this encounter Visit Diagnoses Diagnosis Essential hypertension- Primary Unspecified essential hypertension Primary insomnia Persistent disorder of initiating or maintaining sleep Anxiety and depression Dysthymic disorder documented in this encounter Care Teams Biology Professor Relationship Specialty Start Date End Date Ella Hernandez APRN, CNP [address] [place] [address] PCP - General Advanced Practice Nurse 02/09/24 Tonja Yoo APRN, CNP [address] [place] [address] Nurse Practitioner Advanced Practice Nurse 04/09/24 documented as of this encounter
--- OUTSIDE RECORDS SUMMARY | 2024-11-02 22:39 | XMS_ITS | Encounter Summary ---
Author Organization [employer] Care Team Providers Care Housekeeper Nanny Name Role Phone Grecia Solis APRN, CNP Primary Care P rosanne Encounter Details Date Type Department Care Team (Latest Contact Info) Description 03/16/2024 Travel Social History Tobacco Use Types Packs/Day Years Used Date Smoking Tobacco: Never Smokeless Tobacco: Never Alcohol Use Standard Drinks/Week Comments Not Currently 0 (1 standard drink = 0.6 oz pur e alcohol) [facility] Utilities Answer Date Recorded In the past 12 months has [employer] electric, gas, oil, or water company threatened [...] week 02/08/2024 How often do you attend [facility] or scientology services? Never 02/08/2024 Do you belong to any clubs o r organizations such as sikh groups, unions, fraternal or athletic groups, or [...] medical care, and heating? Somewhat hard 02/08/2024 [facility] - Occupational Stress Questionnaire Answer Date [...] place to sleep or slept in a snf (including now)? No 02/08/2024 Comments No Sex and Gender Information Value Date Recorded Sex Assigned at Not on file Legal Sex Female 7:18 PM CDT Gender Identity Not on file Sexual Orientation Not on file documented as of this encounter Plan of Treatment Upcoming Encounters Date Type Department Care Team (Late st Contact Info) Description 11/08/2024 3:15 PM DISPLAY DEPARTMENT MANAGER Office Visit [facility] - Primary Care - [place] [address] [place] [address] Grecia Solis APRN, LEYDI [address] [place] [address] documented as of this encounter Visit Diagnoses Not on filedocumented in this encounter Care Teams Housekeeper Nanny Relationship Specialty Start Date End Date Grecia Solis APRN, TUBULAR RIVETER [address] [place] [address] PCP - General Advanced Practice Nurse 02/09/24 documented as of this encounter
--- OUTSIDE RECORDS SUMMARY | 2024-11-02 22:39 | XMS_ITS | Encounter Summary ---
Author Organization [facility] Address [address] [facility] [place] [address] Phone Care Team Providers Care Set Up And Charger Name Role Phone Grecia Solis APRN, LEYDI Primary Care P rovider Tonja Yoo APRN, CNP Unavailable Reason for Visit * Reason Onset Date Comments Medication Refill 06/10/2024 Encounter Details Date Type Department Care Team (Late st Contact Info) Description 06/10/2024 MyChart RX Renewal [facility] - Primary Care - [place] [address] [place] [address] Grecia Solis APRN, CNP [address] [place] [address] Medication Renewal Request Social History Tobacco Use Types Packs/Day Years Used Date Smoking Tobacco: Former Cigarettes Smokeless Tobacco: Never Alcohol Use Standard Drinks/Week Comments Yes 0 (1 standard drink = 0.6 oz pur e alcohol) Rarely [facility] Utilities Answer Date Recorded In the past 12 months has [employer] electric, gas, oil, or water company threatened [...] often do you attend chur ch or alevism services? Never 02/08/2024 Do you belong to any clubs o r organizations such as tenriism groups, unions, fraternal or athletic groups, or [...] medical care, and heating? Somewhat hard 02/08/2024 [facility] - Occupational [...] place to sleep or slept in a chcf (including now)? No 02/08/2024 Comments No Sex and Gender Information Value Date Recorded Sex Assigned at Not on file Legal Sex Female 7:18 PM CDT Gender Identity Not on file Sexual Orientation Not on file documented as of this encounter Miscellaneous Notes * Telephone Encounter - Manan Silverman RN - 06/10/2024 10:44 AM CDT Medication(s) refilled and signed per [facility] Chronic Medication Refill Standing Order for Pediatricand Adult Patients. Requested Prescriptions Pending Prescriptions Disp Refills amLODIPine (NORVASC) 10 MG Tablet 90 Tablet 1 Sig: Take 1 Tablet by mouth daily. Calcium-Channel Blockers Protocol Passed - 06/10/2024 10:19 AM Passed - BP on record in the past year Clinician-entered: BP Readings from Last 3 Encounters: 05/06/24 118/76 04/27/24 124/78 03/18/24 146/84 Patient-entered: No data recorded Passed - Visit with relevant provider in past 12 months or upcoming 90 days Recent Visits Date Type Provider Dept 05/06/24 Office Visit Grecia Solis APRN, CNP [facility] 03/18/24 Office Visit Grecia Solis APRN, CNP [facility] 02/09/24 Office Visit Grecia Solis APRN, CNP [facility] Showing recent visits within past 365 days and meeting all other requirements Future Appointments No visits were found meeting these conditions. Showing future appointments within next 90 days and meeting all other requirements Refused Prescriptions Disp Refills lisinopril-hydroCHLOROthiazide (PRINZIDE, ZESTORETIC) 10-12.5 MG Tablet 90 Tablet 3 Sig: Take 1 Tablet by mouth daily. Bernabe Inhibitors and Diuretics Combo Protocol Passed - 06/10/2024 10:19 AM Passed - Serum potassium on record in past 12 months POTASSIUM Date Value Ref Range Status 03/12/2024 4.9 3.5 - 5.1 mmol/L Final Passed - Serum sodium on record in past 12 months SODIUM Date Value Ref Range Status 03/12/2024 145 136 - 145 mmol/L Final Passed - Blood pressure on record in past 12 months Clinician-entered: BP Readings from Last 3 Encounters: 05/06/24 118/76 04/27/24 124/78 03/18/24 146/84 Patient-entered: No data recorded Passed - No positive test in the past 12 months or most recent test was negative Passed - Visit with relevant provider in past 12 months or upcoming 90 days Recent Visits Date Type Provider Dept 05/06/24 Office Visit Grecia Solis APRN, LEYDI [facility] 03/18/24 Office Visit Grecia Solis APRN, CNP [facility] 02/09/24 Office Visit Grecia Solis APRN, LEYDI [facility] Showing recent visits within past 365 days and meeting all other requirements Future Appointments No visits were found meeting these conditions. Showing future appointments within next 90 days and meeting all other requirements Passed - No active on record Passed - GFR on record in past 12 months GFR, EST. NONAFRICAN Date Value Ref Range Status 03/12/2024 >60 >=60 Final documented in this encounter Plan of Treatment Upcoming Encounters Date Type Department Care Team (Late st Contact Info) Description 11/08/2024 3:15 PM BOMBSIGHT SPECIALIST Office Visit [facility] - Primary Care - [place] [address] [place] [address] Grecia Solis APRN, CELERY PACKER [address] [place] [address] documented as of this encounter Visit Diagnoses Diagnosis Essential hypertension Unspecified essential hypertension documented in this encounter Care Teams Set Up And Charger Relationship Specialty Start Date End Date Grecia Solis APRN, CELERY PACKER [address] [place] [address] PCP - General Advanced Practice Nurse 02/09/24 Tonja Yoo APRN, CELERY PACKER #[address] [address] Nurse Practitioner Advanced Practice Nurse 04/09/24 documented as of this encounter
--- OUTSIDE RECORDS SUMMARY | 2024-11-02 22:39 | XMS_ITS | Encounter Summary ---
Author Organization [employer] Care Team Providers Care Naturopathic Physician Name Role Phone Grecia Solis APRN, MERCHANT MARINER Primary Care P sofiader Tonja Yoo APRN, LEYDI Unavailable [phone] Encounter Details Date Type Department Care Team (Latest Contact Info) Description 05/05/2024 Travel Social History Tobacco Use Types Packs/Day Years Used Date Smoking Tobacco: Never Smokeless Tobacco: Never Alcohol Use Standard Drinks/Week Comments Not Currently 0 (1 standard drink = 0.6 oz pur e alcohol) [facility] Utilities Answer Date Recorded In the past 12 months has [employer] electric, gas, oil, or water company threatened [...] How often do you attend chur or sabianism services? Never 02/08/2024 Do you belong to [...] [facility] - [...] place to sleep or slept in a jail (including now)? No 02/08/2024 Comments No Sex and Gender Information Value Date Recorded Sex Assigned at Not on file Legal Sex Female 7:18 PM CDT Gender Identity Not on file Sexual Orientation Not on file documented as of this encounter Plan of Treatment Upcoming Encounters Date Type Department Care Team (Late st Contact Info) Description 11/08/2024 3:15 PM STOCK CHECKERER Office Visit [facility] - Primary Care - [place] [address] [place] [id number] Grecia Solis APRN, LEYDI [address] [place] [address] documented as of this encounter Visit Diagnoses Not on filedocumented in this encounter Care Teams Naturopathic Physician Relationship Specialty Start Date End Date Grecia Solis APRN, LEYDI [address] [place] [address] PCP - General Advanced Practice Nurse 02/09/24 Tonja Yoo APRN, LEYDI #[address] [address] Nurse Practitioner Advanced Practice Nurse 04/09/24 documented as of this encounter
--- OUTSIDE RECORDS SUMMARY | 2024-11-02 22:39 | XMS_ITS | Encounter Summary ---
Author Organization [facility] Address [address] [facility] [place] [address] Phone Care Team Providers Care Nuclear Medicine Pet Ct Technologist Name Role Phone Grecia Solis APRN, CNP Primary Care P rovider Tonja Yoo APRN, LEYDI Unavailable [phone] Reason for Visit * Consult, Test & Initiate Treatment (Routine) - Closed Specialty Diagnoses / Procedures Referred By Cee ann Referred To Contact Diagnoses Suspected sleep apnea Daytime sleepiness Restless sleeper Tonja Yoo APRN, LEAF BINNER #[address] [address] Phone: tel: fax: [facility] [address] [place] [address] Phone: tel: fax: Referral ID Status Reason Start Date Expiration Date Visits Re quested Visits Authorized [id number] Closed 04/09/2024 1 1 Encounter Details Date Type Department Care Team (Latest Contact Info) Description 04/13/2024 3:30 PM CDT Outpatient Clinic Visit [facility] [address] [place] [address] Tonja Yoo APRN, LEAF BINNER #[address] [address] Suspected sleep apnea; Daytime sleepiness; Restless sleeper Discharge Disposition: Discharged to home or Selfcare Social History Tobacco Use Types Packs/Day Years Used Date Smoking Tobacco: Never Smokeless Tobacco: Never Alcohol Use Standard Drinks/Week Comments Not Currently 0 (1 standard drink = 0.6 oz pur e alcohol) [facility] Utilities Answer Date Recorded In the [...] often do you attend chur ch or amish services? Never 02/08/2024 Do you belong to any clubs o r organizations such as rastafarian groups, unions, fraternal or athletic groups, or [...] medical care, and heating? Somewhat hard 02/08/2024 [facility] Occupat ional Health - Occupational Stress [...] on file documented as of this encounter Procedure Notes * Kole Nair MD - 04/13/2024 3:30 PM CDT HOME SLEEP APNEA STUDY Tayla Johsnon 04/13/2024 BRIEF HISTORY: Ms. Tayla Johnson is a 48 year old female (1975), referred for an Unattended Home Sleep Apnea Test (HSAT) to screen for obstructive sleep apnea syndrome. She has a history significant for daytime sleepiness, restless sleep, excessive daytime sleepiness, snoring and witnessed apnea. Her neck size is 14.0 inches and her Penryn score was reported as 4. Her current height is 69.0 in., weight is 304.0 lbs. and has a BMI of 44.9 lb/in2. She was referred by Tonja Yoo. SUMMARY: Moderate obstructive sleep apnea (G47.33) with a RDI of 23.4 events per hour associated with lowestoxygen desaturation of 82%. SaO2 levels below 90% for 13.59% of total recording time (monitoring time). Supine RDI=23.5/hr, non-supine RDI=0.00/hr Pulse averaged 55.4 bpm. RECOMMENDATIONS: Options of intervention may include a trial with auto titrating positive airway pressure (APAP) device or in lab PAP titration. If patient is unable or unwilling to try PAP therapy a trial with a dental appliance may be considered. Sleep hygiene and weight optimization. Due to the lack of EEG monitoring in Home Sleep Apnea Testing, these results may underestimate the severity of obstructive sleep apnea. Given limitation of home sleep testing, consider further evaluation with full polysomnography and daytime sleepiness testing if clinically indicated. A negative home sleep test does not rule out the presence of sleep apnea or any other sleep disorder. METHODOLOGY: Unattended Home Sleep Apnea Test: Nocturnal HSAT was performed on 04/13/2024 using a Type III devicewith recording parameters which include thoracic respiratory effort (single RIP belt), oxygen saturation, snoring and pulse rate (pulse oximeter), body position, and nasal/oral airflow and snoring (pressure transducer). Based on the review of the recorded signals the study quality is adequate for interpretation. Data were interpreted following standard AASM (rule 1B) criteria utilizing the 30% reduction in airflow resulting in at least a 4% desaturation definition for hypopnea. Data were reviewed by Edilberto CYR RESPIRATORY EVENTS SUMMARY Total recording time was 448.0 minutes. Respiratory monitoring revealed 50 obstructive apneas, 0 mixed apneas, 0 central apneas and 124 partial upper airway obstructions (obstructive hypopneas). Resulting in a respiratory disturbance Index (RDI=BRIE) of 23.4 abnormal breathing events per hour of john rding time. The Patient was supine for 444.1 minutes of the recording with a supine RDI of 23.5; non-supine for 1.40 minutes of the recording with a non- supine RDI of 0.00. Recording noted steady snores. SaO2 SUMMARY Mean SaO2= 91% Lowest SaO2=82% 90-100%= 84.62% 80-89% = 13.59% 70-79% = 0.00% 60-69% =0.00% 50-59% =0.00% <50% =0.0% Cardiac recording showed an average heart rate of 55.4 beats per minute, a max heart rate of 76 beats per minute and a minimum heart rate of 44 beats per minute. PATIENT ASSESSMENT: on the post sleep morning questionnaire, the patient felt her sleep was very similar to her usual night sleep at home. Thank you for this referral and please call with any questions or concerns. Kole Nair MD Associated attestation - Jayjay Montalvo MD - 04/23/2024 4:12 PM CDT I have read the Sleep Report for this patient and attest that I am in agreement with it. documented in this encounter Plan of Treatment Upcoming Encounters Date Type Department Care Team (Late st Contact Info) Description 11/08/2024 3:15 PM NURSING AIDE Office Visit [facility] - Primary Care - [place] [address] [place] [id number] Grecia Solis APRN, LEYDI [address] [place] [address] documented as of this encounter Procedures Procedure Name Priority Date/Time Associated Diagnosis Comments HOME SLEEP STUDY UNATTENDED TYPE III Routine 04/14/2024 Daytime sleepiness Suspected sleep apnea documented in this encounter Results * HOME SLEEP STUDY UNATTENDED TYPE III (04/14/2024) us Tonja Yoo APRN, [facility] ORDERABL ES Final Result documented in this encounter Visit Diagnoses Diagnosis Suspected sleep apnea Daytime sleepiness Restless sleeper Sleep disturbance, unspecified documented in this encounter Care Teams Nuclear Medicine Pet Ct Technologist Relationship Specialty Start Date End Date Grecia Solis APRN, LEYDI [address] [place] [address] PCP - General Advanced Practice Nurse 02/09/24 Tonja Yoo APRN, CNP #[address] [address] Nurse Practitioner Advanced Practice Nurse 04/09/24 documented as of this encounter
--- OUTSIDE RECORDS SUMMARY | 2024-11-02 22:39 | XMS_ITS | Encounter Summary ---
Author Organization [employer] Care Team Providers Care Soft Work Wrapper Examiner Name Role Phone Grecia Solis APRN, JEWELRY APPRAISER Primary Care P sofiader Tonja Yoo APRN, LEYDI Unavailable [phone] Encounter Details Date Type Department Care Team (Latest Contact Info) Description 04/13/2024 Travel Social History Tobacco Use Types Packs/Day Years Used Date Smoking Tobacco: Never Smokeless Tobacco: Never Alcohol Use Standard Drinks/Week Comments Not Currently 0 (1 standard drink = 0.6 oz pur e alcohol) [facility] Utilities Answer Date Recorded In the past 12 months has [employer] electric, gas, oil, or water company threatened [...] How often do you attend chur or hinduism services? Never 02/08/2024 Do you belong to any clubs o r organizations such as confucianist groups, unions, fraternal or athletic groups, or [...] medical care, and heating? Somewhat hard 02/08/2024 [facility] Occupat ional Health - Occupational Stress [...] st Contact Info) Description 11/08/2024 3:15 PM SETTLEMENT CLERK Office Visit [facility] - Primary Care - [place] [address] [place] [phone] Grecia Solis APRN, ELYDI [address] [place] [address] documented as of this encounter Visit Diagnoses Not on filedocumented in this encounter Care Teams Soft Work Wrapper Examiner Relationship Specialty Start Date End Date Grecia Solis APRN, LEYDI [address] [place] [address] PCP - General Advanced Practice Nurse 02/09/24 Tonja Yoo APRN, LEYDI #[address] [address] Nurse Practitioner Advanced Practice Nurse 04/09/24 documented as of this encounter
--- OUTSIDE RECORDS SUMMARY | 2024-11-02 22:40 | XMS_ITS | Encounter Summary ---
Author Organization [facility] Care Team Providers Care Chief Human Resources Officer Name Role Phone Luca May Primary Care Provider [phone] Encounter Details Date Type Department Care Team (Latest Contact Info) Description 04/02/2023 Travel Social History Tobacco Use Types Packs/Day Years Used Date Smoking Tobacco: Never Smokeless Tobacco: Never Alcohol Use Standard Drinks/Week Comments Not Currently 0 (1 standard drink = 0.6 oz pur e alcohol) Comments Unknown Sex and Gender Information Value Date Recorded Sex Assigned at Not on file Legal Sex Female 7:18 PM CDT Gender Identity Not on file Sexual Orientation Not on file COVID-19 Exposure Response Date Recorded In the last 10 days, have yo u been in contact with someone who was confirmed or suspected to have Coronavirus/COVID-19? No / Unsure 04/02/2023 5:45 PM CDT documented as of this encounter Plan of Treatment Upcoming Encounters Date Type Department Care Team (Late st Contact Info) Description 11/08/2024 3:15 PM SOUND PRINTER Office Visit [facility] - Primary Care - Stephen [address] [place] [id number] Grecia Solis, SPREAD CUTTER, WOOD SCALER [address] [place] [address] documented as of this encounter Visit Diagnoses Not on filedocumented in this encounter Care Teams Chief Human Resources Officer Relationship Specialty Start Date End Date Luca May PAC [address] [place] [id number] PCP - General Physician Scouring Train Operator Chief 04/02/23 02/08/24 documented as of this encounter
--- OUTSIDE RECORDS SUMMARY | 2024-11-02 22:40 | XMS_ITS | Encounter Summary ---
Author Organization [facility] Address [address] [place] [place] [address] Phone Care Team Providers Care Commissary Superintendent Name Role Phone Grecia Solis APRN, CNP Primary Care P rosanne Reason for Referral * Radiology Services (Routine) - Closed Specialty Diagnoses / Procedures Referred By Cee ann Referred To Contact Radiology Diagnoses Encounter for screening mammogram for malignant neoplasm of breast Procedures ITALO SCREENING BILATERAL DIGITAL W CAD W Grecia Beltre APRN, CNP [address] [place] [address] Phone: tel: fax: Referral ID Status Reason Start Date Expiration Date Visits Re quested Visits Authorized [id number] Closed 02/09/2024 1 1 Reason for Visit * Radiology Services (Routine) - Closed Specialty Diagnoses / Procedures Referred By Cee ann Referred To Contact Radiology Diagnoses Encounter for screening mammogram for malignant neoplasm of breast Procedures ITALO SCREENING BILATERAL DIGITAL W CAD W Grecia Beltre APRN, CNP [address] [place] [address] Phone: tel: fax: Referral ID Status Reason Start Date Expiration Date Visits Re quested Visits Authorized [id number] Closed 02/09/2024 1 1 Encounter Details Date Type Department Care Team (Latest Contact Info) Description 02/10/2024 2:50 PM CDT - 02/10/2024 11:59 PM CDT Hospital Encounter [facility] Mammography [address] [place] [address] Grecia Solis APRN, STEAM SHOVEL OPERATOR [address] [place] [address] Discharge Disposition: Discharged to home or Selfcare Social History Tobacco Use Types Packs/Day Years Used Date Smoking Tobacco: Never Smokeless Tobacco: Never Alcohol Use Standard Drinks/Week Comments Not Currently 0 (1 standard drink = 0.6 oz pur e alcohol) [facility] Utilities Answer Date Recorded In the past [...] often do you attend chur ch or yarsani services? Never 02/08/2024 Do you belong to any clubs o r organizations such as pentecostalism groups, unions, fraternal or athletic groups, or [...] medical care, and heating? Somewhat hard 02/08/2024 [facility] - Occupational Stress Questionnaire Answer Date Recorded [...] place to sleep or slept in a correction (including now)? No 02/08/2024 Comments No Sex [...] st Contact Info) Description 11/08/2024 3:15 PM ENVIRONMENTAL COMPLIANCE INSPECTOR Office Visit [facility] - Primary Care - Stephen [address] [place] [address] Grecia Solis APRN, LEYDI [address] [place] [address] documented as of this encounter Procedures Procedure Name Priority Date/Time Associated Diagnosis Comments [facility] SCREENING BILATERAL DIGITAL W CAD W RAJI Routine 02/10/2024 3:15 PM CDT Encounter for screening mammogram for malignant neoplasm of breast documented in this encounter Results * ITALO SCREENING BILATERAL DIGITAL W CAD W RAJI (02/10/2024 3:15 PM CDT) Anatomical Region Laterality Modality breast Bilateral Mammography 02/10/2024 3:14 PM CDT Narrative 02/11/2024 9:28 AM CDT - ITALO SCREENING BILATERAL DIGITAL W CAD W RAJI BILATERAL DIGITAL SCREENING MAMMOGRAM 3D/2D WITH CAD WITH MEDIOLATERAL OBLIQUE CRANIOCAUDAL: 02/10/2024 The study was acquired using digital technology and interpreted from soft copy. Current study was also evaluated with ICAD version 7.2. 2D digital mammographic views, as well as 3D digital tomosynthesis were performed in the CC and MLO projections. ?? CLINICAL: Baseline screening. Patient has no complaints. No personal history of breast cancer. Sister with premenopausal breast cancer. ?? COMPARISONS: No prior exams were available for comparison. ?? BREAST TISSUE:There are scattered fibroglandular densities in both breasts. ?? FINDINGS: There is a mass in the right breast at 5 o'clock middle depth. ?? There is a mass in the left breast at 7 o'clock middle depth. ?? No other significant masses or calcifications are seen in either breast. ?? IMPRESSION: BI-RAD 0 ADDITIONAL IMAGING EVALUATION NEEDED The mass in the right breast at 5 o'clock middle depth needs additional evaluation. ?? The mass in the left breast at 7 o'clock middle depth needs additional evaluation. ?? An immediate follow-up is recommended. ?? A letter will be sent to the patient with these results. Electronically signed by: Jennifer Post M.D. ? ll/penrad:02/10/2024 16:54:24 ?? Laboratory Helper(s): Leigha ?? ADRIAN Soto)(M), [facility] letter sent: Additional Imaging ?? Reading location: [facility] BI-RADS: 0 Additional Imaging Evaluation Needed Procedure Note Jennifer Post MD - 02/11/2024 - ITALO SCREENING BILATERAL DIGITAL W CAD W RAJI BILATERAL DIGITAL SCREENING MAMMOGRAM 3D/2D WITH CAD WITH MEDIOLATERAL OBLIQUE CRANIOCAUDAL: 02/10/2024 The study was acquired using digital technology and interpreted from soft copy. Current study was also evaluated with ICAD version 7.2. 2D digital mammographic views, as well as 3D digital tomosynthesis were performed in the CC and MLO projections. CLINICAL: Baseline screening. Patient has no complaints. No personal history of breast cancer. Sister with premenopausal breast cancer. COMPARISONS: No prior exams were available for comparison. BREAST TISSUE:There are scattered fibroglandular densities in both breasts. FINDINGS: There is a mass in the right breast at 5 o'clock middle depth. There is a mass in the left breast at 7 o'clock middle depth. No other significant masses or calcifications are seen in either breast. IMPRESSION: BI-RAD 0 ADDITIONAL IMAGING EVALUATION NEEDED The mass in the right breast at 5 o'clock middle depth needs additional evaluation. The mass in the left breast at 7 o'clock middle depth needs additional evaluation. An immediate follow-up is recommended. A letter will be sent to the patient with these results. Electronically signed by: Jennifer alonso/keke:02/10/2024 16:54:24 Laboratory Helper(s): RT Db(R)(M), [facility] letter sent: Additional Imaging Reading location: [facility] BI-RADS: 0 Additional Imaging Evaluation Needed Grecia Solis APRN, CNP IMAlfie MAMMO ORDER ESTELLA Final Result documented in this encounter Visit Diagnoses Diagnosis Encounter for screening mammogram for malignant neoplasm of breast Other screening mammogram documented in this encounter Care Teams Commissary Superintendent Relationship Specialty Start Date End Date Grecia Solis APRN, CNP [address] [place] [address] PCP - General Advanced Practice Nurse 02/09/24 documented as of this encounter
--- OUTSIDE RECORDS SUMMARY | 2024-11-02 22:40 | XMS_ITS | Encounter Summary ---
Author Organization [facility] Care Team Providers Care General Passenger Agent Name Role Phone Grecia Solis APRN, CNP Primary Care P rosanne Encounter Details Date Type Department Care Team (Latest Contact Info) Description 02/10/2024 Travel Social History Tobacco Use Types Packs/Day Years Used Date Smoking Tobacco: Never Smokeless Tobacco: Never Alcohol Use Standard Drinks/Week Comments Not Currently 0 (1 standard drink = 0.6 oz pur e alcohol) [facility] Utilities Answer Date Recorded In the past 12 months has [employer] electric, gas, oil, or water company threatened [...] week 02/08/2024 How often do you attend [facility] or mu-ism services? Never 02/08/2024 Do you belong to any clubs o r organizations such as advent groups, unions, fraternal or athletic groups, or [...] medical care, and heating? Somewhat hard 02/08/2024 [facility] - Occupational Stress Questionnaire Answer Date [...] place to sleep or slept in a long-term (including now)? No 02/08/2024 Comments No Sex and Gender Information Value Date Recorded Sex Assigned at Not on file Legal Sex Female 7:18 PM CDT Gender Identity Not on file Sexual Orientation Not on file documented as of this encounter Plan of Treatment Upcoming Encounters Date Type Department Care Team (Late st Contact Info) Description 11/08/2024 3:15 PM TICKET SCHEDULER Office Visit [facility] - Primary Care - Stephen [address] [place] [address] Grecia Solis APRN, LEYDI [address] [place] [address] documented as of this encounter Visit Diagnoses Not on filedocumented in this encounter Care Teams General Passenger Agent Relationship Specialty Start Date End Date Grecia Solis APRN, RECRUITER COORDINATOR [address] [place] [address] PCP - General Advanced Practice Nurse 02/09/24 documented as of this encounter
--- OUTSIDE RECORDS SUMMARY | 2024-11-02 22:40 | XMS_ITS | Encounter Summary ---
Author Organization [facility] Address [address] [place] [address] Phone Care Team Providers Care Director Of Business Applications Name Role Phone Grecia Solis APRN, CNP Primary Care P roluisana Reason for Referral * Consult, Test & Initiate Treatment (Routine) - Closed Specialty Diagnoses / Procedures Referred By Cee ann Referred To Contact Diagnoses Screening for cervical cancer Grecia Solis APRN, CNP [address] [place] [address] Phone: tel: fax: [facility] - Obstetrics & Gynecology [facility] [address] [place] [address] Phone: tel: fax: Referral ID Status Reason Start Date Expiration Date Visits Re quested Visits Authorized [id number] Closed 02/09/2024 1 1 Scheduling Instructions Tayla is being referred for routine. Please contact patient for scheduling questions or concerns. * Radiology Services (Routine) - Closed Specialty Diagnoses / Procedures Referred By Cee ann Referred To Contact Radiology Diagnoses Encounter for screening mammogram for malignant neoplasm of breast Procedures ITALO SCREENING BILATERAL DIGITAL W CAD W RAJI Grecia Solis APRN, CNP [address] [place] [address] Phone: tel: fax: Referral ID Status Reason Start Date Expiration Date Visits Re quested Visits Authorized [id number] Closed 02/09/2024 1 1 Reason for Visit * Reason Comments Weight Management Encounter Details Date Type Department Care Team (Late st Contact Info) Description 02/09/2024 3:45 PM CDT Office Visit [facility] - Primary Care - [place] [address] [place] [address] Grecia Solis APRN, CNP [address] [place] [address] Class 3 severe obesity due to excess calories with serious comorbidity and body mass index (BMI) of 40.0 to 44.9 in adult (HCC) (Primary Dx); Preventative health care (Adult); Encounter for screening mammogram for malignant neoplasm of breast; Screening for cervical cancer; Colon cancer screening; Essential hypertension; Primary insomnia Discharge Disposition: Discharged to home or Selfcare Social History Tobacco Use Types Packs/Day Years Used Date Smoking Tobacco: Never Smokeless Tobacco: Never Tobacco Cessation:Counseling Given: No Alcohol Use Standard Drinks/Week Comments Not Currently 0 (1 standard drink = 0.6 oz pur e alcohol) [facility] Utilities Answer Date Recorded In the past 12 months has [employer], [employer] oil, or water [employer] threatened to shut off services in your [...] often do you attend chur ch or catholic services? Never 02/08/2024 Do you belong to any clubs o r organizations such as caodaism groups, unions, fraternal or athletic groups, or [...] medical care, and heating? Somewhat hard 02/08/2024 [facility] [place] [facility] Occupat ional [facility] - Occupational Stress [...] place to sleep or slept in a half-way (including now)? No 02/08/2024 Comments No Sex and Gender Information Value Date Recorded Sex Assigned at Not on file Legal Sex Female 7:18 PM CDT Gender Identity Not on file Sexual Orientation Not on file documented as of this encounter Last Filed Vital Signs Vital Sign Reading Time Taken Comments Blood Pressure 144/88 02/09/2024 3:27 PM CDT Pulse 94 02/09/2024 3:27 PM CDT Temperature 37.2 ??C (99 ??F) 02/09/2024 3:27 PM CDT Respiratory Rate 20 02/09/2024 3:27 PM CDT Oxygen Saturation 97% 02/09/2024 3:27 PM CDT Inhaled Oxygen Concentration - - Weight 136.5 kg (301 lb) 02/09/2024 3:27 PM CDT Height 175.3 cm (5' 9 ) 02/09/2024 3:27 PM CDT Body Mass Index 44.45 02/09/2024 3:27 PM CDT documented in this encounter Patient Instructions * Patient Instructions* Grecia Solis APRN, CNP - 02/09/2024 3:45 PM CDT Take all medications as prescribed. Decrease sertraline to 50mg Increase amlodipine to 10mg Start hydroxyzine at night for sleep. Please continue with a balanced lifestyle of exercise and healthy eating. If any question, please call. Thanks for coming in today! documented in this encounter Progress Notes * Diann Santos CMA - 02/09/2024 3:45 PM CDT Tayla Johnson is a 48 y.o. female with current BMI: Body mass index is 44.45 kg/m??. Interventions discussed including: encourage daily physical activity and well- balanced diet. * Diann Santos CMA - 02/09/2024 3:45 PM CDT Tayla Johnson, 48 y.o., female is here for Weight Management Medication Refills: Patient reports/denies need for medication refills. Orders Pended: no Requested Prescriptions No prescriptions requested or ordered in this encounter Home Medications Medication Sig Start Date End Date Taking? Authorizing Provider amLODIPine (NORVASC) 5 MG Tablet Take 5 mg by mouth daily. 01/12/24 Yes ProviderElena MD HYDROcodone-acetaminophen (NORCO) 5-325 MG Tablet Take 1 Tablet by mouth every 4 hours as needed for Severe pain. Patient not taking: Reported on 02/09/2024 04/02/23 Ryan Ellis MD naloxone HCl (Narcan) 4 MG/0.1ML Liquid 1 [place] by Nasal route as needed for Opioid Reversal (opioid overdose). administer for symptoms of overdose (severe sleepiness, breathing problems, not responsive). Call 911. May use additional dose to repeat 1 spray intranasally in 2-3 minutes if needed. Patient not taking: Reported on 02/09/2024 04/02/23 Ryan Ellis MD sertraline (ZOLOFT) 100 MG Tablet Take 100 mg by mouth daily. Yes Provider, MD [...] Maintenance: Health Maintenance Due Topic Date Due Hepatitis C Virus (HCV) Screening Never done TdaP Immunization Never done Hepatitis B Immunization (1 of 3 - 19+ 3-dose series) Never done Cervical Cancer Screening (CCS) Never done Colorectal Cancer Screening Never done SARS-COV-2 Immunization (2022- season) Never done Mammogram Never done Zoster Immunization (1 of 2) Never done Orders Pended: no The following BPA's have been addressed with the patient today: N/A * Grecia Solis APRN, LEYDI - 02/09/2024 3:[address] [facility] - [address] [address] Dept: [phone] Dept Loc: [phone] Loc Patient: Tayla Johnson : 1975 Sex: female Subjective: HPI: Tayla Johnson presents for Weight Management Has tried 6+mo of comprehensive weight management program without success - including, but not limited to, weight watcher, calorie deficit, low carb/high protein. She would like to try a medication before looking into surgery. Due for labs BP slightly elevated today, reports compliance with amlodipine 5mg daily. HM: rev ROS Fourteen point review of systems negative except as documented in HPI. Objective: Vitals: 02/09/24 1527 BP: 144/88 Pulse: 94 Resp: 20 Temp: 99 ??F (37.2 ??C) SpO2: 97% Weight: 301 lb (136.5 kg) Height: 5' 9 (1.753 m) LMP 10/02/2020 (Approximate) Body mass index is 44.45 kg/m??. Physical Exam Vitals and nursing note [...] is no abdominal tenderness. There is no right CVA tenderness, left CVA tenderness, guarding or rebound. Musculoskeletal: General: No tenderness. Normal range of motion. Cervical back: Normal range of motion and neck supple. Right lower leg: No edema. Left lower leg: No edema. Lymphadenopathy: Cervical: No cervical adenopathy. Skin: General: Skin is warm and dry. Neurological: General: No focal deficit present. Mental Status: She is alert and oriented to person, place, and time. Coordination: Coordination normal. Psychiatric: Mood and Affect: Mood normal. Behavior: Behavior normal. Thought Content: Thought content normal. Judgment: Judgment normal. Medical Decision Making: Assessment & Plan Diagnoses and all orders for this visit: Class 3 severe obesity due to excess calories with serious comorbidity and body mass index (BMI) of40.0 to 44.9 in adult ([facility]) [facility] health care (Adult) - COMPLETE BLOOD COUNT (CBC) WITH DIFF; Future - CMP (COMPREHENSIVE METABOLIC PANEL); Future - HEPATITIS C ANTIBODY; Future - HEMOGLOBIN A1C W/ ESTIMATED GLUCOSE; Future - LIPID PANEL; Future - THYROID SCREEN WITH REFLEX; Future Encounter for screening mammogram for malignant neoplasm of breast - [facility] SCREENING BILATERAL DIGITAL W CAD W RAJI; Future Screening for cervical cancer - GYNECOLOGY REFERRAL; Future Colon cancer screening - COLOGUARD Essential hypertension - amLODIPine (NORVASC) 10 MG Tablet; Take 1 Tablet by mouth daily. Primary insomnia - hydrOXYzine (ATARAX) 25 MG Tablet; Take 1 Tablet by mouth nightly as needed for Sleep. Other orders - sertraline (ZOLOFT) 100 MG Tablet; Take 50 mg by mouth daily. - Discontinue: amLODIPine (NORVASC) 5 MG Tablet; Take 5 mg by mouth daily. - semaglutide-weight management (Wegovy) 0.25 MG/0.5ML Solution Auto-injector; 0.25 mg by Subcutaneous route once a week. Screenings as ordered Labs in the near future Wegovy to pharamcy Decrease sertraline to 50mg Increase amlodipine to 10mg Start hydroxyzine at night for sleep. Follow-up Information Return in 6 weeks (on 03/22/2024), or if symptoms worsen or fail to improve. LOS Today OFFICE/OP NEW LVL 4 MOD MDM/45-59 MIN documented in this encounter Plan of Treatment Upcoming Encounters Date Type Department Care Team (Late st Contact Info) Description 11/08/2024 3:15 PM JUVENILE DETENTION OFFICER [facility] [place] [address] [place] [id number] Grecia Solis APRN, CNP [address] [place], [place] [id number] Scheduled Referrals Name Type Priority Associated Diagnoses Order Schedule GYNECOLOGY REFERRAL Outpatient Referral Routine Screening for cervical cancer Expected: 02/09/2024, Expires: 02/08/2025 documented as of this encounter Procedures Procedure Name Priority Date/Time Associated Diagnosis Comments COLOGUARD Routine 02/25/2024 5:30 PM CDT Colon cancer screening documented in this encounter Results * (ABNORMAL) LIPID PANEL (03/12/2024 7:46 AM CDT) CHOLESTEROL 140 <200 mg/dL 03/12/2024 12:54 PM CDT [facility] TRIGLYCERIDES 39 <150 mg/dL 03/12/2024 12:54 PM CDT [facility] HDL CHOLESTEROL 58 >40 mg/dL 12:54 PM CDT [facility] LDL 74 <130 mg/dL 03/12/2024 12:54 PM CDT [facility] VLDL 8(L) 10 - 50 mg/dL 03/12/2024 12:54 PM CDT [facility] CHOL/HDL RATIO 2.4 0.0 - 4.4 03/12/2024 12:54 PM CDT [facility] NON-HDL CHOLESTEROL 82 <130 mg/dL 03/12/2024 12:54 PM CDT [facility] IS THE PATIENT REQUIRED TO BE FASTING? Yes 03/12/2024 12:54 PM CDT [facility] HAS THE PATIENT BEEN FASTING? Yes 03/12/2024 12:54 PM CDT [facility] Blood Venipuncture / Unknown 03/12/2024 7:46 AM CDT 03/12/2024 7:46 AM CDT Grecia Solis APRN, VEST PRESSER CHEMISTRY ORDER ESTELLA Final Result Performing Organization Address City/[facility]/ZIP Co de Phone Number [facility] [address] [place] [address] * HEMOGLOBIN A1C W/ ESTIMATED GLUCOSE (03/12/2024 7:46 AM CDT) HGB-A1C 5.9 4.0 - 6.0 % 03/12/2024 12:57 PM CDT [facility] Est Average Glucose 122.6 mg/dL 03/12/2024 12:57 PM CDT [facility] Blood Venipuncture / Unknown 03/12/2024 7:46 AM CDT 03/12/2024 7:46 AM CDT Narrative [facility] - 03/12/2024 12:57 PM CDT HEMOGLOBIN A1C: DIABETIC PATIENTS: WELL-CONTROLLED: ?? 6.2 - 7.0 INTERMEDIATE WELL-CONTROLLED: ??7.0 - 9.0 POORLY-CONTROLLED: ??>9.0 us Grecia Solis SETTLEMENT AGENT, VEST PRESSER CHEMISTRY ORDER ESTELLA Final Result Performing Organization Address City/[facility]/ZIP Co de Phone Number [facility] [address] [place] [address] * HEPATITIS C ANTIBODY (03/12/2024 7:46 AM CDT) Pathologist [facility] hepatitis C antibody 0.10 <1 S/CO 03/12/2024 9:35 PM CDT [facility] Comment: Signal/Cutoff ratio ??< 0.79 is Nondetected Signal/Cutoff ratio 0.80-0.99 is Grayzone Signal/Cutoff ratio > 0.99 is Detected Supplemental assays are recommended if signal/cutoff ratio is >/=1.00. ??Signal/cutoff ratio result >/= 5.00 is 97% predictive of positivity for recombinant immunoblot assay (RIBA) and will be reported to the [place] Department of Public [facility] as required. Blood Venipuncture / Unknown 03/12/2024 7:46 AM CDT 03/12/2024 7:46 AM CDT us Grecia Solis APRN, CNP CHEMISTRY ORDER ESTELLA Final Result [facility] [address] [place] [address], * (ABNORMAL) CMP (COMPREHENSIVE METABOLIC PANEL) (03/12/2024 7:46 AM CDT) [facility] SODIUM 145 136 - 145 mmol/L 03/12/2024 12:54 PM CDT [facility] POTASSIUM 4.9 3.5 - 5.1 mmol/L 03/12/2024 12:54 PM CDT [facility] CHLORIDE 110(H) 98 - 107 mmol/L 03/12/2024 12:54 PM CDT [facility] CO2, VENOUS 23 22 - 30 mmol/L 03/12/2024 12:54 PM CDT [facility] ANION GAP 16.9 <18.0 mmol/L 03/12/2024 12:54 PM CDT [facility] GLUCOSE 108(H) 70 - 99 mg/dL 03/12/2024 12:54 PM CDT [facility] BUN 18 10 - 20 mg/dL 03/12/2024 12:54 PM T [facility] CREATININE, BLOOD 0.90 0.60 - 1.00 mg/dL 03/12/2024 12:54 PM T [facility] BUN/CREATININE RATIO 20 12 - 20 ratio 03/12/2024 12:54 PM T [facility] TOTAL PROTEIN 7.0 6.3 - 8.2 g/dL 03/12/2024 12:54 PM CDT [facility] ALBUMIN 4.2 3.5 - 5.0 g/dL 03/12/2024 12:54 PM T [facility] A/G RATIO 1.5 1.0 - 2.2 03/12/2024 12:54 PM T [facility] CALCIUM 9.8 8.7 - 10.5 mg/dL 03/12/2024 12:54 PM T [facility] T BILI 0.4 0.2 - 1.2 mg/dL 03/12/2024 12:54 PM T [facility] SGOT (AST) 20 5 - 34 U/L 03/12/2024 12:54 PM T [facility] SGPT (ALT) 35 0 - 55 U/L 03/12/2024 12:54 PM T [facility] ALKALINE PHOSPHATASE 83 40 - 150 U/L 03/12/2024 12:54 PM T [facility] IS THE PATIENT REQUIRED TO BE FASTING? No 03/12/2024 12:54 PM CDT [facility] GFR, ESTIMATED >60 >=60 03/12/2024 12:54 PM T [facility] Comment: Creatinine Clearance is the preferred criteria for selecting drug dose adjustments in renally impaired patients. ??The GFR is provided as additional pertinent clinical information. GFR is reported in mL/min/1.73 sq m. Calculation based on the Chronic Kidney Disease Epidemiology Collaboration (CKD- EPI) equation refit without adjustment for race. GFR, EST. >60 >=60 024 12:54 PM CDT [facility] GFR, EST. NONAFRICAN >60 >=60 03/12/2024 12:54 PM CDT [facility] Blood Venipuncture / Unknown 03/12/2024 7:46 AM CDT 03/12/2024 7:46 AM CDT Grecia Solis APRN, CNP CHEMISTRY ORDER ESTELLA Final Result [facility] [address] [place] [address] * COLOGUARD (02/25/2024 5:30 PM CDT) Cologuard Negative Negative [facility] Comment: NEGATIVE TEST RESULT. A negative [...] screened with both Cologuard and colonoscopy. (Goran Ann. et al, N Engl J Med 2014;370(14):7232-2833) The normal value (reference range) for this assay is negative. COLOGUARD RE-SCREENING RECOMMENDATION: Periodic colorectal cancer screening is an important part of preventive healthcare for asymptomatic individuals at average risk for colorectal cancer. ??Following a negative Cologuard result, the [place] Cancer Society and U.S. Multi-Society Task Force screening guidelines recommend a Cologuard re-screening interval of 3 years. References: [employer] Cancer Society Guideline for Colorectal Cancer Screening: https://www.cancer.org/cancer/tmsoq-tumdbu-wjpafb/rsywcberj-ysbkzetzs-ulfzxpq/ acs-recommendations.html.; rEic RACHEL, Caroline LU, Afshin TY, Colorectal Cancer Screening: Recommendations for Physicians and Patients from the U.S. Multi-Society Task Force on Colorectal Cancer Screening , Am J Gastroenterology 2017; 112:6725-9048. TEST DESCRIPTION: Composite algorithmic analysis of stool [...] (Goran Sanders al, N Engl J Med 2014;370(14):5244-1709.) Cologuard may produce a false negative or false positive result (no colorectal cancer or precancerous polyp present at colonoscopy follow up). A negative Cologuard test result does not guarantee the absence of CRC or advanced adenoma (pre-cancer). The current Cologuard screening interval is every 3 years. ([employer] Cancer Society and U.S. Multi-Society Task Force). Cologuard performance data in a 10,000 patient pivotal study using colonoscopy as the reference method can be accessed at the following location: www.[employer]/results. Additional description of the Cologuard test process, warnings and precautions can be found at www.[employer].com. Stool 02/25/2024 5:30 PM CDT 02/28/2024 6:54 AM CDT Grecia Solis APRN, CNP BODY FLUIDS & S TOOLS ORDERABLES Final Result [facility] [address] [place] [address], [place] [phone] [facility] [address] [place] [address] * [place] SCREENING BILATERAL DIGITAL W CAD [...] Electronically signed by: Jennifer Post M.D. ? gavin/keke:02/10/2024 16:54:24 ?? Public Information Director(s): Leigha ?? RT Charles(Lino)(M), [facility] letter sent: Additional Imaging ?? Reading location: [facility] BI-RADS: 0 Additional Imaging Evaluation Needed Procedure [...] results. Electronically signed by: Jennifer alonso/keke:02/10/2024 16:54:24 Public Information Director(s): RT Db(R)(M), [facility] letter sent: Additional Imaging Reading location: [facility] BI-RADS: 0 Additional Imaging Evaluation Needed Grecia Solis APRN, VEST PRESSER IMG MAMMO ORDER ESTELLA Final Result documented in this encounter Visit Diagnoses Diagnosis Class 3 severe obesity due to excess calories with serious comorbidity and body mass index (BMI) of 40.0 to 44.9 in adult (HCC)- Primary Preventative health care (Adult) Routine general medical examination at a health care facility Encounter for screening mammogram for malignant neoplasm of breast Other screening mammogram Screening for cervical cancer Screening for malignant neoplasm of the cervix Colon cancer screening Special screening for malignant neoplasms, colon Essential hypertension Unspecified essential hypertension Primary insomnia Persistent disorder of initiating or maintaining sleep Encounter for screening mammogram for malignant neoplasm of breast Other screening mammogram documented in this encounter Care Teams Director Of Business Applications Relationship Specialty Start Date End Date Grecia Solis APRN, VEST PRESSER [address] [place] [address] PCP - General Advanced Practice Nurse 02/09/24 documented as of this encounter
--- OUTSIDE RECORDS SUMMARY | 2024-11-02 22:40 | XMS_ITS | Encounter Summary ---
Author Organization [employer] Care Team Providers Care Knife Cutter Name Role Phone Luca May VISHNU Primary Care Provider [phone] Encounter Details Date Type Department Care Team (Latest Contact Info) Description 02/08/2024 Travel Social History Tobacco Use Types Packs/Day Years Used Date Smoking Tobacco: Never Smokeless Tobacco: Never Alcohol Use Standard Drinks/Week Comments Not Currently 0 (1 standard drink = 0.6 oz pur e alcohol) [facility] Utilities Answer Date Recorded In the past 12 months has [employer], gas, oil, or water [employer] threatened to shut off services in your [...] week 02/08/2024 How often do you attend [facility] or yazidism services? Never 02/08/2024 Do you belong to any clubs o r organizations such as roman catholic groups, unions, fraternal or athletic groups, or [...] medical care, and heating? Somewhat hard 02/08/2024 [facility]at [facility] - Occupational Stress Questionnaire Answer Date [...] a penitentiary (including now)? No 02/08/2024 Comments Unknown Sex and Gender Information Value Date Recorded Sex Assigned at Not on file Legal Sex Female 7:18 PM CDT Gender Identity Not on file Sexual Orientation Not on file documented as of this encounter Functional Status * Audit-C Score Answer Date of Assessment Author 2 02/08/2024 4:48 PM CDT [facility] Background * Within the last year, have you been humiliated or emotionally abused in other ways by your partner or ex-partner? Answer Date of Assessment Author No 02/08/2024 4:48 PM CDT [facility] Background * Within the last year, have you been afraid of your partner or ex-partner? Answer Date of Assessment Author No 02/08/2024 4:48 PM CDT [facility] Background * Within the last year, have you been raped or forced to have any kind of sexual activity by your partner or ex-partner? Answer Date of Assessment Author No 02/08/2024 4:48 PM CDT [facility] Background * Within the last year, have you been kicked, hit, slapped, or otherwise physically hurt by your partner or ex-partner? Answer Date of Assessment Author No 02/08/2024 4:48 PM CDT [facility] Background * Q1: How often do you have a drink containing alcohol? Answer Date of Assessment Author Monthly or less 02/08/2024 4:48 PM CDT [facility] Background * Q2: How many drinks containing alcohol do you have on a typical day when you are drinking? Answer Date of Assessment Author 1 or 2 02/08/2024 4:48 PM CDT [facility] Background * Q3: How often do you have six or more drinks on one occasion? Answer Date of Assessment Author Less than monthly 02/08/2024 4:48 PM CDT [facility] , System Background documented as of this encounter Plan of Treatment Upcoming Encounters Date Type Department Care Team (Late st Contact Info) Description 11/08/2024 3:15 PM TYPESETTER APPRENTICE Office Visit [facility] - Primary Care - [place] [address] [place] [address] Grecia Solis APRN, HUMAN RESOURCES EXECUTIVE ASSISTANT [address] [place] [id number] documented as of this encounter Visit Diagnoses Not on filedocumented in this encounter Care Teams Knife Cutter Relationship Specialty Start Date End Date Luca May, PAC [address] [place] [address] PCP - General Physician Bump Grader Operator 04/02/23 02/08/24 documented as of this encounter
--- OUTSIDE RECORDS SUMMARY | 2024-11-02 22:40 | XMS_ITS | Encounter Summary ---
Author Organization [facility] Address [address] [place] [address] Phone Care Team Providers Care Powerhouse Mechanic Helper Name Role Phone Luca May Primary Care Provider [phone] Reason for Visit * Reason Onset Date Comments New Patient 01/07/2024 Encounter Details Date Type Department Care Team (Late st Contact Info) Description 01/07/2024 Telephone [facility] [address] [place] [address] Provider, None [place] New Patient Social History Tobacco Use Types Packs/Day Years [...] encounter Miscellaneous Notes * Telephone Encounter - Maribel Edwards - 01/07/2024 2:17 PM CDT Appointment scheduled * Telephone Encounter - Maribel Edwards - 01/07/2024 2:16 PM CDT ----- Message from Sally Cm sent at 01/07/2024 2:10 PM CDT ----- Regarding: [place] [facility] [place] Request Insurance of patient: [employer] Name of person calling: Tayla Relationship to patient: Self Preferred phone number: [phone] Alternate phone number: Region / Office location preference: [place] Provider preference (male/female, specific provider name): Grecia Solis Willing to see someone other than physician, such as [employer]/MISSILE SYSTEMS OFFICER, [place], resident? Yes Patient reason for appointment/any current symptoms: Est Care Other information (including need for airport electrician): no documented in this encounter Plan of Treatment Upcoming Encounters Date Type Department Care Team (Late st Contact Info) Description 11/08/2024 3:15 PM REGISTERED REPRESENTATIVE Office Visit [facility] - [place] [address] [place] [id number] Grecia Solis APRN, CNP [address] [place] [address] documented as of this encounter Visit Diagnoses Not on filedocumented in this encounter Care Teams Powerhouse Mechanic Helper Relationship Specialty Start Date End Date Luca May PAC [address] [place] [address] PCP - General Physician Discharge Door Operator 04/02/23 02/08/24 documented as of this encounter
--- OUTSIDE RECORDS SUMMARY | 2024-11-02 22:40 | XMS_ITS | Encounter Summary ---
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 - General Physician Cantilever Crane Operator 04/02/23 02/08/24 documented as of this encounter
--- OUTSIDE RECORDS SUMMARY | 2024-11-02 23:05 | XMS_ITS | Clinical Summary ---
Author Organization [facility] Address [address] [place] [address] Phone Care Team Providers Care Coal Chute Worker Name Role Phone Grecia Solis APRN, LEYDI Primary Care P rovider Tonja Yoo APRN, LEYDI Unavailable [phone] Allergies No known active allergies Medications lisinopril-hydroC [...] = 0.6 oz pur e alcohol) Rarely [facility] Utilities Answer Date Recorded In the past [...] week 02/08/2024 How often do you attend [facility] or pentecostalism services? Never 02/08/2024 Do you belong to any clubs o r organizations such as congregational groups, unions, fraternal or athletic groups, or [...] medical care, and heating? Somewhat hard 02/08/2024 [facility] of Occupat ional Health - Occupational Stress [...] st Contact Info) Description 11/08/2024 3:15 PM MEDICAL INSURANCE COLLECTOR Office Visit [facility] - Primary Care - [place] [address] [place] [address] Grecia Solis APRN, TRANSPORT ANALYST [address] [place] [address] Health Maintenance Due Date Last Done Comments [...] Priority Date/Time Associated Diagnosis Comments PATHOLOGY CYTOLOGY SENIOR PRIVATE CLIENT ADVISOR Routine 04/27/2024 3:48 PM CDT Encounter for [...] to Health Maintenance Results * PATHOLOGY CYTOLOGY SENIOR PRIVATE CLIENT ADVISOR (04/27/2024 3:48 PM CDT) SPECIMEN ADEQUACY Unsatisfactory for evaluation due to scant squamous component. Endocervical/transf ormation zone component is absent. 05/06/2024 4:05 PM CDT [facility] DESCRIPTIVE DIAGNOSIS UNSATISFACTORY FOR INTERPRETATION. 05/06/2024 4:05 PM CDT [facility] Automated Examination Analysis of this sample has been assisted by an automated imaging and review system ([employer] System, [employer], [place], [place]). This case is further evaluated and finalized by a clinical haematologist and/or pathologist. 05/06/2024 4:05 PM CDT [facility] Disclaimer The PAP smear is a [...] unless clinically indicated. 05/06/2024 4:05 PM CDT [facility] Case Report Gynecologic Cytology Report ? Case: [id number] ? Authorizing Provider: ??Richard Ferguson MD ?Collected: ? 04/27/2024 03:48 PM ? Ordering Location: ? [facility] - ?Received: ?04/27/2024 03:48 PM ? Obstetrics & Gynecology - ? Stan ? First Screen: ?Patel, Julia ? Rescreen: ?Arely Holt N ? Specimen: ?TP Screen, Cervix/Endocervix ? 05/06/2024 4:05 PM CDT [facility] Other (Cervix/Endocerv ix) Non-Phlebotomy Collection / Unknown 04/27/2024 3:48 PM CDT 04/27/2024 3:48 PM CDT us Richard Ferguson MD PATHOLOGY/CYTOLOGY ORDERABLES Final Result Performing Organization Address [facility] de Phone Number [facility] [address] [place] [address], [place] * HEPATITIS C ANTIBODY (03/12/2024 7:46 AM CDT) hepatitis C antibody 0.10 <1 S/CO 03/12/2024 9:35 PM CDT [facility] Comment: Signal/Cutoff ratio ??< 0.79 is Nondetected Signal/Cutoff ratio 0.80-0.99 is Grayzone Signal/Cutoff ratio > 0.99 is Detected Supplemental assays are recommended if signal/cutoff ratio is >/=1.00. ??Signal/cutoff ratio result >/= 5.00 is 97% predictive of positivity for recombinant immunoblot assay (RIBA) and will be reported to the [place] Department of Public Health as required. Blood Venipuncture / Unknown 03/12/2024 7:46 AM CDT 03/12/2024 7:46 AM CDT Grecia Solis APRN, TRANSPORT ANALYST CHEMISTRY ORDER ESTELLA Final Result Performing Organization Address [facility] de Phone Number [facility] [address] [place] [address], [place] * ITALO DIAG BILATERAL DIGITAL W [...] is made to exam dated: ??02/10/20[address] [facility]. ?? BREAST TISSUE:There are scattered fibroglandular densities [...] Abimbola White M.D. ? ab/:03/05/2024 14:28:59 ?? Coal Pulverizing Operator(s): Leigha ?? Charles, RT(R)(M), [facility]; Gabbi ??LOY Gonzales, [facility] letter sent: Birad 3 Followup ?? Reading location: [facility] STUDY BIRADS: 3 Probably benign Procedure Note [...] copy. Current study was also evaluated with Navigenics version 7.2. 2D digital mammographic views, as well as 3D digital tomosynthesis were performed in the CC and MLO projections. CLINICAL: Diagnostic study. Patient returns for additional imaging over suspected masses in both breasts. Sister with premenopausal breast cancer. COMPARISONS: Comparison is made to exam dated: 02/10/2024 [facility]. BREAST TISSUE:There are scattered [...] signed by: Abimbola White M.D. ab/:03/05/2024 14:28:59 Coal Pulverizing Operator(s): Leigha Soto, (R)(M), [facility]; Gabbi Gonzales RDMS OBBRIANNA, [facility] letter sent: Birad 3 Followup Reading location: [facility] OVERALL STUDY BIRADS: 3 Probably benign Grecia Solis APRN, CNP IM MAMMO ORDER ESTELLA Final Result * COLOGUARD (02/25/2024 5:30 PM CDT) Cologuard Negative Negative [facility] Comment: NEGATIVE TEST RESULT. A negative [...] (Goran Sanders al, N Engl J Med 2014;370(14):6862-2706) The normal value (reference range) for this assay is negative. COLOGUARD RE-SCREENING RECOMMENDATION: Periodic colorectal cancer screening is an important part of preventive healthcare for asymptomatic individuals at average risk for colorectal cancer. ??Following a negative Cologuard result, the [place] Cancer Society and U.S. Multi-Society Task Force screening guidelines recommend a Cologuard re-screening interval of 3 years. References: [place] [employer] Guideline for Colorectal Cancer Screening: https://www.cancer.org/cancer/rgtop-xivvdt-mkxhbj/cosqzypev-fmnhegxoc-bkcxtil/ acs-recommendations.html.; Eric DK, Caroline CR, Afshin WangK, Colorectal Cancer Screening: Recommendations for Physicians and Patients from the U.S. Multi-Society Task Force on Colorectal Cancer Screening , Am J Gastroenterology 2017; 112:3017-0163. TEST DESCRIPTION: Composite algorithmic analysis of stool [...] (Goran Sanders al, N Engl J Med 2014;370(14):5762-9742.) Cologuard may produce a false negative or false positive result (no colorectal cancer or precancerous polyp present at colonoscopy follow up). A negative Cologuard test result does not guarantee the absence of CRC or advanced adenoma (pre-cancer). The current Cologuard screening interval is every 3 years. ([place] Cancer Society and U.S. Multi-Society Task Force). Cologuard performance data in a 10,000 patient pivotal study using colonoscopy as the reference method can be accessed at the following location: www.3CI/results. Additional description of the Cologuard test process, warnings and precautions can be found at www.[employer].com. Stool 02/25/2024 5:30 PM CDT 02/28/2024 6:54 AM CDT Grecia Solis APRN, CNP BODY FLUIDS & S TOOLS ORDERABLES Final Result [facility] [address] [place] [address], [place] [phone] [employer] [address] [place] [address] from Last 3 Months or Most Recently Relevant to Health Maintenance Insurance [facility] TPL on file Care Teams Coal Chute Worker Relationship Specialty Start Date End Date Grecia Solis APRN, CNP [address] [place] [address] PCP - General Advanced Practice Nurse 02/09/24 Tonja Yoo APRN, CNP [address] [address] Nurse Practitioner Advanced Practice Nurse 04/09/24
--- OUTSIDE RECORDS SUMMARY | 2024-11-02 23:05 | XMS_ITS | Encounter Summary ---
Author Organization [facility] Address [address] [place] [address] Phone Care Team Providers Care Drywall Taper Name Role Phone Grecia Solis APRN, CNP Primary Care P rovider Tonja Yoo APRN, CNP Unavailable [phone] Reason for Referral * Radiology Services (Routine) - Authorized Specialty Diagnoses / Procedures Referred By Contac t Referred To Contact Radiology Diagnoses Abnormal mammogram Procedures [facility] US BREAST LIMITED ARVIN Grecia Solis APRN, CNP [address] [place] [address] Phone: tel: fax: Referral ID Status Reason Start Date Expiration Date V isits Requested Visits Authorized [id number] Authorized 07/29/2024 1 1 * Radiology Services (Routine) - Authorized Specialty Diagnoses / Procedures Referred By Cee ann Referred To Contact Radiology Diagnoses Abnormal mammogram Procedures ITALO DIAG BILATERAL DIGITAL W CAD W RAJI Grecia Solis APRN, CNP [address] [place] [address] Phone: tel: fax: Referral ID Status Reason Start Date Expiration Date V isits Requested Visits Authorized [id number] Authorized 07/29/2024 1 1 Encounter Details Date Type Department Care Team (Latest Contact Info) Description 07/28/2024 Transcribe Orders [facility] Mammography [address] [place] [address] Grecia Solis APRN, CNP [address] [place] [address] Abnormal mammogram (Primary Dx) Social History Tobacco Use Types Packs/Day Years Used Date Smoking Tobacco: Former Cigarettes Smokeless Tobacco: Never Alcohol Use Standard Drinks/Week Comments Yes 0 (1 standard drink = 0.6 oz pur e alcohol) Rarely [facility] Utilities Answer Date Recorded In [...] you attend [facility] or alevism services? Never 02/08/2024 Do you [...] medical care, and heating? Somewhat hard 02/08/2024 [facility] of Occupat ional Health - Occupational Stress [...] st Contact Info) Description 11/08/2024 3:15 PM PREPARATION PLANT REPAIRER [facility] - [place] [address] [place] [address] Grecia Solis APRN, LEYDI [address] [place] [address] Scheduled Orders Name Type Priority Associated Diagnoses Orde r Schedule ITALO DIAG BILATERAL DIGITAL W CAD W RAJI Imaging Routine Abnormal mammogram Expected: 09/05/2024, Expires: 01/26/2025 ITALO US BREAST LIMITED ARVIN Imaging Routine Abnormal mammogram Expected: 09/05/2024, Expires: 01/26/2025 documented as of this encounter Visit Diagnoses Diagnosis Abnormal mammogram- Primary Abnormal mammogram, unspecified documented in this encounter Care Teams Drywall Taper Relationship Specialty Start Date End Date Grecia Solis APRN, LEYDI [address] [place] [address] PCP - General Advanced Practice Nurse 02/09/24 Tonja Yoo APRN, AVIATION TACTICAL READINESS OFFICER [address] [address] Nurse Practitioner Advanced Practice Nurse 04/09/24 documented as of this encounter
--- OUTSIDE RECORDS SUMMARY | 2024-11-02 23:06 | XMS_ITS | Encounter Summary ---
Author Organization [employer] Care Team Providers Care Controller Coal Or Ore Name Role Phone Grecia Solis APRN, INSPECTOR WELDED PARTS Primary Care P sofiader Tonja Yoo APRN, LEYDI Unavailable [phone] Encounter Details Date Type Department Care Team (Latest Contact Info) Description 07/13/2024 Travel Social History Tobacco Use Types Packs/Day Years Used Date Smoking Tobacco: Former Cigarettes Smokeless Tobacco: Never Alcohol Use Standard Drinks/Week Comments Yes 0 (1 standard drink = 0.6 oz pur e alcohol) Rarely [facility] Utilities Answer Date Recorded In the past 12 months has [employer] electric, gas, oil, or water company threatened [...] week 02/08/2024 How often do you attend [facility] or scientologist services? Never 02/08/2024 Do you belong to [...] Somewhat hard 02/08/2024 [facility] of Occupat ional Health - [...] place to sleep or slept in a nursing home (including now)? No 02/08/2024 Comments No Sex and Gender Information Value Date Recorded Sex Assigned at Not on file Legal Sex Female 7:18 PM CDT Gender Identity Not on file Sexual Orientation Not on file documented as of this encounter Plan of Treatment Upcoming Encounters Date Type Department Care Team (Late st Contact Info) Description 11/08/2024 3:15 PM PLASTERING CONTRACTOR [facility] - [place] [address] [place] [address] Grecia Solis APRN, LEYDI [address] [place] [address] documented as of this encounter Visit Diagnoses Not on filedocumented in this encounter Care Teams Controller Coal Or Ore Relationship Specialty Start Date End Date Grecia Solis APRN, LEYDI [address] [place] [address] PCP - General Advanced Practice Nurse 02/09/24 Tonja Yoo APRN, LEYDI [address] [address] Nurse Practitioner Advanced Practice Nurse 04/09/24 documented as of this encounter
--- OUTSIDE RECORDS SUMMARY | 2024-11-02 23:06 | XMS_ITS | Encounter Summary ---
Author Organization [facility] Address [address] [facility] [place] [address] Phone Care Team Providers Care Spice Room Worker Name Role Phone Grecia Solis APRN, LEYDI Primary Care P rovider Tonja Yoo APRN, CNP Unavailable Reason for Visit * Reason Comments Cough Non-productive for t wo months Headache Encounter Details Date Type Department Care Team (Late st Contact Info) Description 07/13/2024 4:00 PM CDT [facility] - Primary Care - [place] [address] [place] [address] Grecia Solis APRN, LEYDI [address] [place], [place] [id number] Subacute cough (Primary Dx) Discharge Disposition: Discharged to home or Selfcare Social History Tobacco Use Types Packs/Day Years Used Date Smoking Tobacco: Former Cigarettes Smokeless Tobacco: Never Tobacco Cessation:Counseling Given: Not Answered Alcohol Use Standard Drinks/Week Comments Yes 0 (1 standard drink = 0.6 oz pur e alcohol) Rarely [facility] Utilities Answer Date Recorded In the [...] often do you attend chur ch or christianity services? Never 02/08/2024 Do you belong to any clubs o r organizations such as temple groups, unions, fraternal or athletic groups, or [...] medical care, and heating? Somewhat hard 02/08/2024 [facility] of Occupat ional Health - Occupational Stress [...] this encounter Progress Notes * Donald Arias, KNIFE GLAZER - 07/13/2024 4:00 PM CDT Tayla Johnson, [...] Student - 07/13/2024 4:00 PM CDT [facility] - [facility] - [address] [address] Dept: [phone] Dept Loc: [phone] Loc Patient: Tayla Johnson : 1975 Sex: [...] as appropriate. Cosigned by Grecia Solis APRN, PULLEY MORTISER OPERATOR at 07/13/2024 4:53 PM CDT Associated attestation - Grecia Solis APRN, CNP - 07/13/2024 4:53 PM CDT I was immediately available during this visit on 07/13/24. I have reviewed and agree with the PHP PROGRAMMER students history, exam and medical decision making with the following additions/revisions noted. I discussed the history, exam and medical decision making with the DEANGELO student at the time of the visit. documented in this encounter Plan of Treatment Upcoming Encounters Date Type Department Care Team (Late st Contact Info) Description 11/08/2024 3:15 PM DINING CAR CONDUCTOR Office Visit [facility] - Primary Care - [place] [address] [place] [address] Grecia Solis APRN, CNP [address] [place] [address] documented as of this encounter Results * [...] PM T: ??07/13/2024 4:44 PM Report ID: [id number] Reading Location: ??[id number] Procedure Note Jarett Frances MD - 07/13/2024 [...] Jarett Frances M.D. LB: LB Report ID: [id number] Reading Location: [id number] IMPRESSION: 1. Small lung volumes with no acute radiographic abnormality. LEYDI Stone APRN DIAGNOSTIC ORDERABLES Final Result documented in this encounter Visit Diagnoses Diagnosis Subacute cough- Primary Cough Subacute cough Cough documented in this encounter Care Teams Spice Room Worker Relationship Specialty Start Date End Date Grecia Solis APRN, CNP [address] [place] [address] PCP - General Advanced Practice Nurse 02/09/24 Tonja Yoo APRN, CNP #[address] [address] Nurse Practitioner Advanced Practice Nurse 04/09/24 documented as of this encounter
--- OUTSIDE RECORDS SUMMARY | 2024-11-02 23:06 | XMS_ITS | Encounter Summary ---
Author Organization [facility] Address [address] [place] [address] Phone Care Team Providers Care Litigator Name Role Phone Grecia Solis APRN, CNP Primary Care P rovider Tonja Yoo APRN, CNP Unavailable Encounter Details Date Type Department Care Team (Latest Contact Info) Description 07/13/2024 4:25 PM CDT Ancillary Procedure [facility] - Diagnostic Radiology - [place] [address] [place] [address] Grecia Solis APRN, CNP [address] [place] [address] Subacute cough Discharge Disposition: Discharged to home or Selfcare Social History Tobacco Use Types Packs/Day Years Used Date Smoking Tobacco: Former Cigarettes Smokeless Tobacco: Never Alcohol Use Standard Drinks/Week Comments Yes 0 (1 standard drink = 0.6 oz pur e alcohol) Rarely [facility] Utilities Answer Date Recorded In the past 12 months has [employer] electric, gas, oil, or water company threatened [...] any clubs o r organizations such as taoist groups, unions, fraternal or athletic groups, or [...] medical care, and heating? Somewhat hard 02/08/2024 [facility] of Occupat ional Health - [...] st Contact Info) Description 11/08/2024 3:15 PM GLASS CALIBRATOR Office Visit [facility] Primary Care - [place] [address] [place] [phone] Grecia Solis, CAR BLOCKER, BUSINESS DEVELOPMENT SPECIALIST [address] [place] [address] documented as of this encounter Procedures Procedure [...] PM T: ??07/13/2024 4:44 PM Report ID: [id number] Reading Location: ??[id number] Procedure Note Jarett Frances MD - 07/13/2024 [...] Jarett Frances M.D. LB: LB Report ID: [id number] Reading Location: [id number] IMPRESSION: 1. Small lung volumes with no acute radiographic abnormality. Grecia Solis APRN, CNP IM DIAGNOSTIC ORDERABLES Final Result documented in this encounter Visit Diagnoses Diagnosis Subacute cough Cough documented in this encounter Care Teams Litigator Relationship Specialty Start Date End Date Grecia Solis APRN, CNP [address] [place] [address] PCP - General Advanced Practice Nurse 02/09/24 Tonja Yoo APRN, CNP #[address] [address] Nurse Practitioner Advanced Practice Nurse 04/09/24 documented as of this encounter
--- OUTSIDE RECORDS SUMMARY | 2024-11-02 23:07 | XMS_ITS | Encounter Summary ---
Author Organization [facility] Address [address] [facility] [place] [address] Phone Care Team Providers Care User Support Analyst Supervisor Name Role Phone Grecia Solis APRN, CNP Primary Care P rovider Tonja Yoo APRN, CNP Unavailable Reason for Visit * Reason Comments Medication Refill Encounter Details Date Type Department Care Team (Late st Contact Info) Description 06/08/2024 Refill [facility] - Primary Care - [place] [address] [place] [address] Grecia Solis APRN, CNP [address] [place] [address] Medication Refill Social History Tobacco Use Types Packs/Day Years Used Date Smoking Tobacco: Former Cigarettes Smokeless Tobacco: Never Alcohol Use Standard Drinks/Week Comments Yes 0 (1 standard drink = 0.6 oz pur e alcohol) Rarely [facility] Utilities Answer Date Recorded In the past 12 months has [employer] electric, gas, oil, or water company threatened [...] often do you attend chur ch or protestant services? Never 02/08/2024 Do you belong to any clubs o r organizations such as yazidi groups, unions, fraternal or athletic groups, or [...] medical care, and heating? Somewhat hard 02/08/2024 [facility] of Occupat ional Health - Occupational [...] 05/06/24 Office Visit Grecia Solis APRN, CNP [facility] 03/18/24 Office Visit Grecia Solis APRN, CNP [facility] 02/09/24 Office Visit Grecia Solis APRN, CNP [facility] Showing recent visits within past 365 days and meeting all other requirements Future Appointments No visits were found meeting these conditions. Showing future appointments within next 90 days and meeting all other requirements documented in this encounter Plan of Treatment Upcoming Encounters Date Type Department Care Team (Late st Contact Info) Description 11/08/2024 3:15 PM SALES REPRESENTATIVE SALES MANAGER Office Visit [facility] Care - [place] [address] [place] [address] Grecia Solis APRN, LEYDI [address] [place] [address] documented as of this encounter Visit Diagnoses Diagnosis Primary insomnia Persistent disorder of initiating or maintaining sleep documented in this encounter Care Teams User Support Analyst Supervisor Relationship Specialty Start Date End Date Grecia Solis APRN, LEYDI [address] [address] PCP - General Advanced Practice Nurse 02/09/24 Tonja Yoo APRN, LEYDI #[address] [address] Nurse Practitioner Advanced Practice Nurse 04/09/24 documented as of this encounter
--- OUTSIDE RECORDS SUMMARY | 2024-11-02 23:07 | XMS_ITS | Encounter Summary ---
Author Organization [facility] Address [address] [facility] [place] [address] Phone Care Team Providers Care Outreach Nurse Name Role Phone Grecia Solis APRN, LEYDI Primary Care P rovider Tonja Yoo APRN, CNP Unavailable Reason for Visit * Reason Onset Date Comments Medication Refill 06/10/2024 Encounter Details Date Type Department Care Team (Late st Contact Info) Description 06/10/2024 MyChart RX Renewal [facility] - Primary Care - [place] [address] [place] [address] Grecia Solis APRN, CNP [address] [place] [address] Medication Renewal Request Social History Tobacco Use Types Packs/Day Years Used Date Smoking Tobacco: Former Cigarettes Smokeless Tobacco: Never Alcohol Use Standard Drinks/Week Comments Yes 0 (1 standard drink = 0.6 oz pur e alcohol) Rarely [facility] Utilities Answer Date Recorded In the past 12 months has [employer] electric, gas, oil, or water company threatened [...] often do you attend chur ch or latter day services? Never 02/08/2024 Do you belong to [...] medical care, and heating? Somewhat hard 02/08/2024 [facility] Occupat ional Health - Occupational [...] place to sleep or slept in a group home (including now)? No 02/08/2024 Comments No Sex and Gender Information Value Date Recorded Sex Assigned at Not on file Legal Sex Female 7:18 PM CDT Gender Identity Not on file Sexual Orientation Not on file documented as of this encounter Miscellaneous Notes * Telephone Encounter - Manan Silverman RN - 06/10/2024 10:44 AM CDT Medication(s) [facility]illed and [facility] Chronic Medication Refill Standing Order for Pediatricand [...] 05/06/24 Office Visit Grecia Solis APRN, CNP [facility] 03/18/24 Office Visit Grecia Solis APRN, CNP [facility] 02/09/24 Office Visit Grecia Solis APRN, CNP [facility] Showing recent visits within past [...] 05/06/24 Office Visit Grecia Solis APRN, LEYDI [facility] 03/18/24 Office Visit Grecia Solis APRN, CNP [facility] 02/09/24 Office Visit Grecia Solis APRN, LEYDI [facility] Showing recent visits within past [...] st Contact Info) Description 11/08/2024 3:15 PM INSURANCE COORDINATOR Office Visit [facility] - Primary Care - [place] [address] [place] [address] Grecia Solis APRN, CLINICAL APPEALS RN [address] [place] [address] documented as of this encounter Visit Diagnoses Diagnosis Essential hypertension Unspecified essential hypertension documented in this encounter Care Teams Outreach Nurse Relationship Specialty Start Date End Date Grecia Solis APRN, CLINICAL APPEALS RN [address] [place] [address] PCP - General Advanced Practice Nurse 02/09/24 Tonja Yoo APRN, CLINICAL APPEALS RN #[address] [address] Nurse Practitioner Advanced Practice Nurse 04/09/24 documented as of this encounter
--- OUTSIDE RECORDS SUMMARY | 2024-11-02 23:08 | XMS_ITS | Encounter Summary ---
Author Organization [employer] Care Team Providers Care Lens Engraver Name Role Phone Grecia Solis APRN, DEHYDROGENATION OPERATOR Primary Care P sofiader Tonja Yoo APRN, LEYDI Unavailable [phone] Encounter Details Date Type Department Care Team (Latest Contact Info) Description 05/05/2024 Travel Social History Tobacco Use Types Packs/Day Years Used Date Smoking Tobacco: Never Smokeless Tobacco: Never Alcohol Use Standard Drinks/Week Comments Not Currently 0 (1 standard drink = 0.6 oz pur e alcohol) [facility] Utilities Answer Date Recorded In the past 12 months has [employer] electric, gas, oil, or water company threatened [...] How often do you attend chur or episcopal services? Never 02/08/2024 Do you belong to any clubs o r organizations such as hoahaoism groups, unions, fraternal or athletic groups, or [...] medical care, and heating? Somewhat hard 02/08/2024 [facility] Occupat ional Health - Occupational Stress [...] st Contact Info) Description 11/08/2024 3:15 PM LIVESTOCK SHOWMAN [facility] - Primary Care - [place] [address] [place] [address] Grecia Solis APRN, LEYDI [address] [place] [address] documented as of this encounter Visit Diagnoses Not on filedocumented in this encounter Care Teams Lens Engraver Relationship Specialty Start Date End Date Grecia Solis APRN, LEYDI [address] [place] [address] PCP - General Advanced Practice Nurse 02/09/24 Tonja Yoo APRN, LEYDI #[address] [address] Nurse Practitioner Advanced Practice Nurse 04/09/24 documented as of this encounter
--- OUTSIDE RECORDS SUMMARY | 2024-11-02 23:08 | XMS_ITS | Encounter Summary ---
Author Organization [employer] Care Team Providers Care Search Engine Marketing Strategist Name Role Phone Grecia Solis APRN, AUTO CLAIM REPRESENTATIVE Primary Care P sofiader Tonja Yoo APRN, LEYDI Unavailable [phone] Encounter Details Date Type Department Care Team (Latest Contact Info) Description 04/27/2024 Travel Social History Tobacco Use Types Packs/Day Years Used Date Smoking Tobacco: Never Smokeless Tobacco: Never Alcohol Use Standard Drinks/Week Comments Not Currently 0 (1 standard drink = 0.6 oz pur e alcohol) [facility] Utilities Answer Date Recorded In the past 12 months has [employer] electric, gas, oil, or water company threatened [...] How often do you attend chur or rastafarian services? Never 02/08/2024 Do you belong to any clubs o r organizations such as latter-day groups, unions, fraternal or athletic groups, or [...] st Contact Info) Description 11/08/2024 3:15 PM DEPUTY ASSESSOR [facility] - Primary Care - [place] [address] [place] [phone] Grecia Solis APRN, LEYDI [address] [place] [address] documented as of this encounter Visit Diagnoses Not on filedocumented in this encounter Care Teams Search Engine Marketing Strategist Relationship Specialty Start Date End Date Grecia Solis APRN, LEYDI [address] [place] [address] PCP - General Advanced Practice Nurse 02/09/24 Tonja Yoo APRN, LEYDI #[address] [address] Nurse Practitioner Advanced Practice Nurse 04/09/24 documented as of this encounter
--- OUTSIDE RECORDS SUMMARY | 2024-11-02 23:08 | XMS_ITS | Encounter Summary ---
Author Organization [facility] Address [address] [facility] [place] [address] Phone Care Team Providers Care Mincemeat Maker Name Role Phone Grecia Solis APRN, LEYDI Primary Care P rovider Tonja Yoo APRN, CNP Unavailable Reason for Visit * Reason Onset Date Comments Allergies 05/27/2024 Encounter Details Date Type Department Care Team (Late st Contact Info) Description 05/27/2024 Nurse Triage [facility] [address] [place] [address] Grecia Solis APRN, APPLICATION SYSTEMS ADMINISTRATOR [address] [place] [address] Allergies Social History Tobacco Use Types Packs/Day Years Used Date Smoking Tobacco: Former Cigarettes Smokeless Tobacco: Never Alcohol Use Standard Drinks/Week Comments Yes 0 (1 standard drink = 0.6 oz pur e alcohol) Rarely [facility] Utilities Answer Date Recorded In the past 12 months has [employer] electric, gas, oil, or water company threatened [...] week 02/08/2024 How often do you attend [facility] or evangelical services? Never 02/08/2024 Do you belong to any clubs o r organizations such as sabianist groups, unions, fraternal or athletic groups, or [...] 02/08/2024 [facility] of Occupat ional [facility] - Occupational Stress Questionnaire Answer Date Recorded [...] PM CDT Tayla notified, verbalized understanding. Requesting [employer] message with provider recommendations. [employer] message sent. * Telephone Encounter - Grecia [...] Please advise on further recommendations. Please send [employer] message to patient with any further recommendations. [...] st Contact Info) Description 11/08/2024 3:15 PM TUBE CLEANER [facility] - Primary Care - [place] [address] [place] [address] Grecia Solis, SINK CUTTER, APPLICATION SYSTEMS ADMINISTRATOR [address] [place] [address] documented as of this encounter Visit Diagnoses Not on filedocumented in this encounter Care Teams Mincemeat Maker Relationship Specialty Start Date End Date Grecia Solis APRN, APPLICATION SYSTEMS ADMINISTRATOR [address] [place], [place] [id number] PCP - General Advanced Practice Nurse 02/09/24 Tonja Yoo APRN, APPLICATION SYSTEMS ADMINISTRATOR #[address] [address] Nurse Practitioner Advanced Practice Nurse 04/09/24 documented as of this encounter
--- OUTSIDE RECORDS SUMMARY | 2024-11-02 23:08 | XMS_ITS | Encounter Summary ---
Author Organization [facility] Address [address] [facility] [place] [address] Phone Care Team Providers Care Transformer Stock Clerk Name Role Phone Ella Hernandez APRN, LEYDI Primary Care P rovider Tonja Yoo APRN, CNP Unavailable Reason for Visit * Reason Comments Essential hypertension Follow-up Six week Encounter Details Date Type Department Care Team (Late st Contact Info) Description 05/06/2024 3:15 PM CDT Office Visit [facility] - Primary Care - [place] [address] [place] [address] Ella Hernandez APRN, LEYDI [address] [place] [address] Essential hypertension (Primary Dx); Primary insomnia; Anxiety and depression Discharge Disposition: Discharged to home or Selfcare Social History Tobacco Use Types Packs/Day Years Used Date Smoking Tobacco: Former Cigarettes Smokeless Tobacco: Never Alcohol Use Standard Drinks/Week Comments Yes 0 (1 standard drink = 0.6 oz pur e alcohol) Rarely [facility] Utilities Answer Date Recorded In the past [...] How often do you attend chur or buddhist services? Never 02/08/2024 Do you belong to [...] [facility] of Occupat ional Health [...] this encounter Progress Notes * Donald Arias, WEB DESIGN SPECIALIST - 05/06/2024 3:15 PM CDT Tayla Johnson, [...] APRN, CNP - 05/06/2024 3:15 PM CDT [facility] - [facility] - [address] [address] Dept: [phone] Dept Loc: [phone] Loc Patient: Tayla Johnson : 1975 Sex: [...] st Contact Info) Description 11/08/2024 3:[address] IN WAITER/WAITRESS Office Visit [facility] - Primary Care - [place] [address] [place] [address] Ella Hernandez APRN, CNP [address] [place] [address] documented as of this encounter Visit Diagnoses Diagnosis Essential hypertension- Primary Unspecified essential hypertension Primary insomnia Persistent disorder of initiating or maintaining sleep Anxiety and depression Dysthymic disorder documented in this encounter Care Teams Transformer Stock Clerk Relationship Specialty Start Date End Date Ella Hernandez APRN, CNP [address] [address] PCP - General Advanced Practice Nurse 02/09/24 Tonja Yoo APRN, CNP #[address] [place] [address] Nurse Practitioner Advanced Practice Nurse 04/09/24 documented as of this encounter
--- OUTSIDE RECORDS SUMMARY | 2024-11-02 23:09 | XMS_ITS | Encounter Summary ---
Author Organization [facility] Address [address] [place] [address] Phone Care Team Providers Care Jacquard Fixer Name Role Phone Grecia Solis APRN, CNP Primary Care P rovider Tonja Yoo APRN, CNP Unavailable [phone] Reason for Visit * Reason Comments New Patient WWE * Consult, Test & Initiate Treatment (Routine) - Closed Specialty Diagnoses / Procedures Referred By Cee t Referred To Contact Diagnoses Screening for cervical cancer Grecia Solis APRN, LEYDI [address] [place] [address] Phone: tel: fax: [facility] Obstetrics & Gynecology [facility] [address] [place] [address] Phone: tel: fax: Referral ID Status Reason Start Date Expiration Date Visits Re quested Visits Authorized [id number] Closed 02/09/2024 1 1 Encounter Details Date Type Department Care Team ([facility] Contact Info) Description 04/27/2024 3:00 PM CDT Office Visit [facility] Obstetrics [facility] Gynecology [facility] [address] [place] [phone] Grecia Solis APRN, LEYDI [address] [place] [address] Richard Ferguson MD [address] [place] [address] Encounter for well woman exam with routine gynecological exam (Primary Dx); Screening for cervical cancer; Overweight on examination Discharge Disposition: Discharged to home or Selfcare Social History Tobacco Use Types Packs/Day Years Used Date Smoking Tobacco: Never Smokeless Tobacco: Never Alcohol Use Standard Drinks/Week Comments Not Currently 0 (1 standard drink = 0.6 oz pur e alcohol) [facility] Utilities Answer Date Recorded In the past [...] any clubs o r organizations such as yarsanism groups, unions, fraternal or athletic groups, or [...] medical care, and heating? Somewhat hard 02/08/2024 [facility] of Occupat ional Health - Occupational Stress [...] st Contact Info) Description 11/08/2024 3:15 PM STEAM PIPE FITTER Office Visit [facility] - Primary Care - [place] [address] [place] [address] Grecia Solis APRN, FINANCE BROKER [address] [place], [place] [phone] documented as of this encounter Procedures Procedure Name Priority Date/Time Associated Diagnosis Comments PATHOLOGY CYTOLOGY RECEIVING WORKER Routine 04/27/2024 3:48 PM CDT Encounter for well woman exam with routine gynecological exam documented in this encounter Results * PATHOLOGY CYTOLOGY RECEIVING WORKER (04/27/2024 3:48 PM CDT) SPECIMEN ADEQUACY Unsatisfactory for evaluation due to scant squamous component. Endocervical/transf ormation zone component is absent. 05/06/2024 4:05 PM CDT [facility] DESCRIPTIVE DIAGNOSIS UNSATISFACTORY FOR INTERPRETATION. 05/06/2024 4:05 PM CDT [facility] Automated Examination Analysis of this sample has been assisted by an automated imaging and review system ([employer]in[employer] Imaging System, [employer], [place], [place]). This case is further evaluated and finalized by a teacher citizenship and/or pathologist. 05/06/2024 4:05 PM CDT [facility] Disclaimer The PAP smear is a [...] clinically indicated. 05/06/2024 4:05 PM CDT [facility] Case Report Gynecologic Cytology Report ? Case: [id number] ? Authorizing Provider: ??Richard Ferguson MD ?Collected: ? 04/27/2024 03:48 PM ? Ordering Location: ? [facility] - ?Received: ?04/27/2024 03:48 PM ? Obstetrics & Gynecology - ? Stan ? First Screen: ?Julia Patel ? Rescreen: ?Arely Holt Eyad ? Specimen: ?TP Screen, Cervix/Endocervix ? 05/06/2024 4:05 PM CDT [facility] Other (Cervix/Endocerv ix) Non-Phlebotomy Collection / Unknown 04/27/2024 3:48 PM CDT 04/27/2024 3:48 PM CDT us Richard Ferguson MD PATHOLOGY/CYTOLOGY ORDERABLES Final Result [facility] [address] [place] [address], documented in this encounter Visit Diagnoses Diagnosis Encounter for well woman exam with routine gynecological exam- Primary Screening for cervical cancer Screening for malignant neoplasm of the cervix Overweight on examination documented in this encounter Care Teams Jacquard Fixer Relationship Specialty Start Date End Date Grecia Solis APRN, FINANCE BROKER [address] [place] [address] PCP - General Advanced Practice Nurse 02/09/24 Tonja Yoo APRN, FINANCE BROKER #[address] [address] Nurse Practitioner Advanced Practice Nurse 04/09/24 documented as of this encounter
--- OUTSIDE RECORDS SUMMARY | 2024-11-02 23:09 | XMS_ITS | Encounter Summary ---
Author Organization [facility] Address [address] [facility] [place] [address] Phone Care Team Providers Care Warehouse Director Name Role Phone Grecia Solis APRN, CNP Primary Care P rovider Tonja Yoo APRN, CNP Unavailable Encounter Details Date Type Department Care Team (Late st Contact Info) Description 04/23/2024 Telephone [facility] - Pulmonology & Sleep Medicine [facility] [address] [place] [phone] Tonja Yoo APRN, LEYDI [address] [address] Social History Tobacco Use Types Packs/Day Years Used Date Smoking Tobacco: Never Smokeless Tobacco: Never Alcohol Use Standard Drinks/Week Comments Not Currently 0 (1 standard drink = 0.6 oz pur e alcohol) [facility] Utilities Answer Date Recorded In the past 12 months has [employer] electric, gas, oil, or water company threatened [...] week 02/08/2024 How often do you attend [facility] or advent services? Never 02/08/2024 Do you belong to [...] medical care, and heating? Somewhat hard 02/08/2024 [facility] Occupat ional [facility] - Occupational Stress Questionnaire Answer Date [...] CDT ----- Message from Tonja Yoo APRN, RADIATION CONTROL WORKER sent at 04/22/2024 1:00 PM CDT ----- Please let patient know sleep study is consistent with moderate SEBASTIAN. Recommend APAP 5-15cm order parveen sent to DME of patients choice. documented in this encounter Plan of Treatment Upcoming Encounters Date Type Department Care Team (Late st Contact Info) Description 11/08/2024 3:15 PM DRYWALL METAL STUD WORKER Office [facility] - Primary Care - [place] [address] [place] [address] Grecia Solis APRN, RADIATION CONTROL WORKER [address] [phone] documented as of this encounter Visit Diagnoses Not on filedocumented in this encounter Care Teams Warehouse Director Relationship Specialty Start Date End Date Grecia Solis APRN, RADIATION CONTROL WORKER [address] [place] [address] PCP - General Advanced Practice Nurse 02/09/24 Tonja Yoo APRN, LEYDI #[address] [address] Nurse Practitioner Advanced Practice Nurse 04/09/24 documented as of this encounter
--- OUTSIDE RECORDS SUMMARY | 2024-11-02 23:09 | XMS_ITS | Encounter Summary ---
Author Organization [employer] Care Team Providers Care Applied Psychology Chair Name Role Phone Grecia Solis APRN, SHOP HELPER Primary Care P sofiader Tonja Yoo APRN, LEYDI Unavailable [phone] Encounter Details Date Type Department Care Team (Latest Contact Info) Description 04/13/2024 Travel Social History Tobacco Use Types Packs/Day Years Used Date Smoking Tobacco: Never Smokeless Tobacco: Never Alcohol Use Standard Drinks/Week Comments Not Currently 0 (1 standard drink = 0.6 oz pur e alcohol) [facility] Utilities Answer Date Recorded In the past 12 months has [employer] electric, gas, oil, or water company threatened [...] How often do you attend chur or nondenominational services? Never 02/08/2024 Do you belong to [...] medical care, and heating? Somewhat hard 02/08/2024 [facility] of Occupat ional Health - Occupational Stress [...] st Contact Info) Description 11/08/2024 3:15 PM CAFETERIA TABLE ATTENDANT Office Visit [facility] - Primary Care - [place] [address] [place] [phone] Grecia Solis APRN, LEYDI [address] [place] [address] documented as of this encounter Visit Diagnoses Not on filedocumented in this encounter Care Teams Applied Psychology Chair Relationship Specialty Start Date End Date Grecia Soils APRN, LEYDI [address] [place] [address] PCP - General Advanced Practice Nurse 02/09/24 Tonja Yoo APRN, LEYDI #[address] [address] Nurse Practitioner Advanced Practice Nurse 04/09/24 documented as of this encounter
--- OUTSIDE RECORDS SUMMARY | 2024-11-02 23:09 | XMS_ITS | Encounter Summary ---
Author Organization [facility] Address [address] [facility] [place] [address] Phone Care Team Providers Care Tub Puller Name Role Phone Grecia Solis APRN, CNP Primary Care P rovider Tonja Yoo APRN, LEYDI Unavailable [phone] Reason for Visit * Consult, Test & Initiate Treatment (Routine) - Closed Specialty Diagnoses / Procedures Referred By Cee ann Referred To Contact Diagnoses Suspected sleep apnea Daytime sleepiness Restless sleeper Tonja Yoo APRN, FISH CAKE MAKER #[address] [address] Phone: tel: fax: [facility] [address] [place] [address] Phone: tel: fax: Referral ID Status Reason Start Date Expiration Date Visits Re quested Visits Authorized [id number] Closed 04/09/2024 1 1 Encounter Details Date Type Department Care Team (Latest Contact Info) Description 04/13/2024 3:30 PM CDT Outpatient Clinic Visit [facility] [address] [place] [address] Tonja Yoo APRN, FISH CAKE MAKER #[address] [address] Suspected sleep apnea; Daytime sleepiness; Restless sleeper Discharge Disposition: Discharged to home or Selfcare Social History Tobacco Use Types Packs/Day Years Used Date Smoking Tobacco: Never Smokeless Tobacco: Never Alcohol Use Standard Drinks/Week Comments Not Currently 0 (1 standard drink = 0.6 oz pur e alcohol) [facility] Utilities Answer Date Recorded In the [...] any clubs o r organizations such as mu-ism groups, unions, fraternal or athletic groups, or [...] medical care, and heating? Somewhat hard 02/08/2024 [facility] [place] of Occupat ional Health - Occupational Stress [...] PM CDT HOME SLEEP APNEA STUDY Tayla Johnson 04/13/2024 BRIEF HISTORY: Ms. Tayla Johnson is a 48 year old female (1975), referred for an Unattended Home Sleep Apnea Test (HSAT) to screen for obstructive sleep apnea syndrome. She has a history significant for daytime sleepiness, restless sleep, excessive daytime sleepiness, snoring and witnessed apnea. Her neck size is 14.0 inches and her Lackey score was reported as 4. Her current [...] st Contact Info) Description 11/08/2024 3:15 PM FIRE ALARM REPAIRER Office Visit [facility] - Primary Care - [place] [address] [place] [phone] Grecia Solis APRN, LEYDI [address] [place] [address] documented as of this encounter Procedures Procedure Name Priority Date/Time Associated Diagnosis Comments HOME SLEEP STUDY UNATTENDED TYPE III Routine 04/14/2024 Daytime sleepiness Suspected sleep apnea documented in this encounter Results * HOME SLEEP STUDY UNATTENDED TYPE III (04/14/2024) us Tonja Yoo APRN, FISH CAKE MAKER [facility] ORDERABL ES Final Result documented in this encounter Visit Diagnoses Diagnosis Suspected sleep apnea Daytime sleepiness Restless sleeper Sleep disturbance, unspecified documented in this encounter Care Teams Tub Puller Relationship Specialty Start Date End Date Grecia Solis APRN, LEYDI [address] [place] [address] PCP - General Advanced Practice Nurse 02/09/24 Tonja Yoo APRN, CNP #[address] [address] Nurse Practitioner Advanced Practice Nurse 04/09/24 documented as of this encounter
--- OUTSIDE RECORDS SUMMARY | 2024-11-02 23:10 | XMS_ITS | Encounter Summary ---
Author Organization [facility] Address [address] [facility] [place] [address] Phone Care Team Providers Care Sleep Technician Name Role Phone Grecia Solis APRN, CNP Primary Care P rovider Reason for Visit * Reason Onset Date Comments Prior Authorization 02/10/2024 laury Encounter Details Date Type Department Care Team ([facility] Contact Info) Description 02/10/2024 Telephone [facility] - Primary Care - [place] [address] [place] [address] Grecia Solis APRN, CNP [address] [place] [address] Prior Authorization (laury) Social History Tobacco Use Types Packs/Day Years Used Date Smoking Tobacco: Never Smokeless Tobacco: Never Alcohol Use Standard Drinks/Week Comments Not Currently 0 (1 standard drink = 0.6 oz pur e alcohol) [facility] Utilities Answer Date Recorded In the past [...] often do you attend chur ch or congregation services? Never 02/08/2024 Do you belong to any clubs o r organizations such as sabianism groups, unions, fraternal or athletic groups, or [...] medical care, and heating? Somewhat hard 02/08/2024 [facility] of Occupat ional Health - [...] place to sleep or slept in a prison (including now)? No 02/08/2024 Comments No Sex [...] st Contact Info) Description 11/08/2024 3:15 PM LENS CUTTER Office Visit [facility] - Primary Care - [place] [address] [place] [phone] Grecia Solis APRN, STEREOPLOTTER OPERATOR [address] [place] [address] documented as of this encounter Visit Diagnoses Not on filedocumented in this encounter Care Teams Sleep Technician Relationship Specialty Start Date End Date Grecia Solis APRN, STEREOPLOTTER OPERATOR [address] [place], [place] [phone] PCP - General Advanced Practice Nurse 02/09/24 documented as of this encounter
--- OUTSIDE RECORDS SUMMARY | 2024-11-02 23:10 | XMS_ITS | Encounter Summary ---
Author Organization [facility] Address [address] [place] [address] Phone Care Team Providers Care Rn Correctional Name Role Phone Grecia Solis APRN, CNP Primary Care P rosanne Reason for Referral * Consult, Test & Initiate Treatment (Routine) - Closed Specialty Diagnoses / Procedures Referred By Cee ann Referred To Contact Diagnoses Suspected sleep apnea Grecia Solis APRN, CNP [address] [place] [address] Phone: tel: fax: [facility] - Pulmonology & Sleep Medicine [facility] [place] [address] Phone: tel: fax: Referral ID Status Reason Start Date Expiration Date Visits Re quested Visits Authorized [id number] Closed 03/18/2024 1 1 Scheduling Instructions Tayla is being referred for tamara terrell. Please contact patient for scheduling questions or concerns. Reason for Visit * Reason Comments Follow-up Encounter Details Date Type Department Care Team ([facility] st Contact Info) Description 03/18/2024 3:15 PM CDT Office Visit [facility] - Primary Care - [place] [address] [place] [phone] Grecia Solis APRN, SANITARY [place] MACHINE TENDER [address] [place] [address] Essential hypertension (Primary Dx); Primary insomnia; Class [...] drink = 0.6 oz pur e alcohol) [facility] Utilities Answer Date Recorded In the past 12 months has e [employer], gas, oil, or water [employer] threatened to shut off services in your [...] often do you attend chur ch or oriental orthodox services? Never 02/08/2024 Do you belong to [...] medical care, and heating? Somewhat hard 02/08/2024 [facility] [place] of Occupat ional Health - Occupational Stress [...] APRN, CNP - 03/18/2024 3:15 PM CDT [facility] - FAMILY [address] [address] Dept: [phone] Dept Loc: [phone] Loc Patient: Tayla Johnson : 1975 Sex: [...] st Contact Info) Description 11/08/2024 3:15 PM YOKE PRESSER Office Visit [facility] - Primary Care - [place] [address] [place] [phone] Grecia Solis APRN, CNP [address] [place] [address] Scheduled Referrals Name Type Priority Associated Diagnoses [...] apnea documented in this encounter Care Teams Rn Correctional Relationship Specialty Start Date End Date Grecia Solis APRN, LEYDI [address] [place] [address] PCP - General Advanced Practice Nurse 02/09/24 documented as of this encounter
--- OUTSIDE RECORDS SUMMARY | 2024-11-02 23:10 | XMS_ITS | Encounter Summary ---
Author Organization [facility] Address [address] [facility] [place] [address] Phone Care Team Providers Care Desulphurizer Operator Name Role Phone Grecia Solis APRN, CNP Primary Care P rosanne Reason for Referral * Radiology Services (Routine) - Closed Specialty Diagnoses / Procedures Referred By Cee ann Referred To Contact Radiology Diagnoses Abnormal mammogram Procedures ITALO RAHAT BILATERAL DIGITAL W CAD W Grecia Beltre APRN, CNP [address] [place] [address] Phone: tel: fax: Referral ID Status Reason Start Date Expiration Date Visits Re quested Visits Authorized [id number] Closed 02/12/2024 1 1 Reason for Visit * Radiology Services (Routine) - Closed Specialty Diagnoses / Procedures Referred By Cee ann Referred To Contact Radiology Diagnoses Abnormal mammogram Procedures ITALO RAHAT BILATERAL DIGITAL W CAD W Grecia Beltre APRN, CNP [address] [place] [address] Phone: tel: fax: Referral ID Status Reason Start Date Expiration Date Visits Re quested Visits Authorized [id number] Closed 02/12/2024 1 1 Encounter Details Date Type Department Care Team (Latest Contact Info) Description 03/05/2024 12:55 PM CDT - 03/05/2024 1:51 PM CDT Hospital Encounter [facility] M[facility]ography [address] [place] [address] Grecia Solis APRN, BLOOD BANK SPECIALIST [address] [place] [address] Discharge Disposition: Discharged to home or Selfcare Social History Tobacco Use Types Packs/Day Years Used Date Smoking Tobacco: Never Smokeless Tobacco: Never Alcohol Use Standard Drinks/Week Comments Not Currently 0 (1 standard drink = 0.6 oz pur e alcohol) [facility] Utilities Answer Date Recorded In [...] any clubs o r organizations such as buddhism groups, unions, fraternal or athletic groups, or [...] medical care, and heating? Somewhat hard 02/08/2024 [facility] [place] of Occupat ional Health - Occupational Stress [...] st Contact Info) Description 11/08/2024 3:15 PM LOCOMOTIVE CRANE OPERATOR Office Visit [facility] - Primary Care - [place] [address] [place] [address] Grecia Solis APRN, BLOOD BANK SPECIALIST [address] [place], [place] [phone] documented as of this encounter Procedures Procedure [...] Comparison is made to exam dated: [facility] ?? BREAST TISSUE:There are scattered [...] Abimbola White M.D. ? ab/:03/05/2024 14:28:59 ?? Entomology Professor(s): Leigha ?? RT Charles(Lino)(Samuel), [facility]; Gabbi ??LOY Gonzales, [facility] letter sent: Birad 3 Followup ?? Reading location: [facility] OVERALL STUDY BIRADS: 3 Probably benign Procedure Note Abimbola White MD - 03/05/2024 - ITALO DIAG BILATERAL DIGITAL W CAD W RAJI - [facility] US BREAST LIMITED ARVIN BILATERAL DIGITAL [...] Comparison is made to exam dated: 02/10/2024 [facility]. BREAST TISSUE:There are scattered fibroglandular densities in [...] signed by: Abimbola White M.D. ab/:03/05/2024 14:28:59 Entomology Professor(s): RT Db(R)(M), [facility]; Gabbi Gonzales RDMS OBGYN, [facility] letter sent: Birad 3 Followup Reading location: [facility] OVERALL STUDY BIRADS: 3 Probably benign us Grecia Solis APRN, CNP IMAlfie MAMMO ORDER ESTELLA Final Result documented in this encounter Visit Diagnoses Diagnosis Abnormal mammogram Abnormal mammogram, unspecified documented in this encounter Care Teams Desulphurizer Operator Relationship Specialty Start Date End Date Grecia Solis APRN, CNP [address] [place] [address] PCP - General Advanced Practice Nurse 02/09/24 documented as of this encounter
--- OUTSIDE RECORDS SUMMARY | 2024-11-02 23:10 | XMS_ITS | Encounter Summary ---
Author Organization [facility] Address [address] [facility] [place] [address] Phone Care Team Providers Care Extrusion Die Repair Manager Name Role Phone Grecia Solis APRN, CNP Primary Care P rovider Tonja Yoo APRN, LEYDI Unavailable Encounter Details Date Type Department Care Team (Late st Contact Info) Description 04/09/2024 [facility] [address] [place] [phone] Tonja Yoo APRN, LEYDI [address] [address] Daytime sleepiness (Primary Dx); Suspected sleep apnea Social History Tobacco Use Types Packs/Day Years Used Date Smoking Tobacco: Never Smokeless Tobacco: Never Alcohol Use Standard Drinks/Week Comments Not Currently 0 (1 standard drink = 0.6 oz pur e alcohol) [facility] Utilities Answer Date Recorded In the past 12 months has [employer], gas, oil, or water company threatened [...] week 02/08/2024 How often do you attend [facility] or yazidism services? Never 02/08/2024 Do [...] medical care, and heating? Somewhat hard 02/08/2024 [facility] of Occupat ional Health - Occupational Stress [...] st Contact Info) Description 11/08/2024 3:15 PM JAVA WEB SERVICES DEVELOPER Office Visit [facility] - Primary Care - [place] [address] [place] [phone] Grecia Solis APRN, CNP [address] [place] [address] documented as of this encounter Results * HOME SLEEP STUDY UNATTENDED TYPE III (04/14/2024) Tonja Yoo APRN, CNP SLEEP CENTER ORDERABL ES Final Result documented in this encounter Visit Diagnoses Diagnosis Daytime sleepiness- Primary Suspected sleep apnea documented in this encounter Care Teams Extrusion Die Repair Manager Relationship Specialty Start Date End Date Grecia Solis APRN, CNP [address] [place] [address] PCP - General Advanced Practice Nurse 02/09/24 Tonja Yoo APRN, CNP [address] [address] Nurse Practitioner Advanced Practice Nurse 04/09/24 documented as of this encounter
--- OUTSIDE RECORDS SUMMARY | 2024-11-02 23:10 | XMS_ITS | Encounter Summary ---
Author Organization [facility] Care Team Providers Care Director Athletic Name Role Phone Grecia Solis APRN, DATA POWER CONSULTANT Primary Care P sofiader Tonja Yoo APRN, LEYDI Unavailable [phone] Encounter Details Date Type Department Care Team (Latest Contact Info) Description 04/09/2024 Travel Social History Tobacco Use Types Packs/Day Years Used Date Smoking Tobacco: Never Smokeless Tobacco: Never Alcohol Use Standard Drinks/Week Comments Not Currently 0 (1 standard drink = 0.6 oz pur e alcohol) [facility] Utilities Answer Date Recorded In the past 12 months has [employer], gas, oil, or water company threatened [...] any clubs o r organizations such as confucianism groups, unions, fraternal or athletic groups, or [...] medical care, and heating? Somewhat hard 02/08/2024 [facility] of Occupat ional Health - Occupational [...] st Contact Info) Description 11/08/2024 3:15 PM PASTRY COOK HELPER [facility] - Primary Care - [place] [address] [place] [phone] Grecia Solis APRN, LEYDI [address] [place] [address] documented as of this encounter Visit Diagnoses Not on filedocumented in this encounter Care Teams Director Athletic Relationship Specialty Start Date End Date Grecia Solis APRN, LEYDI [address] [place] [address] PCP - General Advanced Practice Nurse 02/09/24 Tonja Yoo APRN, LEYDI [address] [address] Nurse Practitioner Advanced Practice Nurse 04/09/24 documented as of this encounter
--- OUTSIDE RECORDS SUMMARY | 2024-11-02 23:10 | XMS_ITS | Encounter Summary ---
Author Organization [facility] Address [address] [facility] [facility] [place] [address] Phone Care Team Providers Care Auto Inspector Name Role Phone Grecia Solis APRN, CNP Primary Care P rosanne Encounter Details Date Type Department Care Team (Late st Contact Info) Description 03/12/2024 8:20 AM CDT Lab [facility] - Primary Care - [address] [address] Lab, [facility] Preventative health care (Adult) Discharge Disposition: Discharged to home or Selfcare Social History Tobacco Use Types Packs/Day Years Used Date Smoking Tobacco: Never Smokeless Tobacco: Never Alcohol Use Standard Drinks/Week Comments Not Currently 0 (1 standard drink = 0.6 oz pur e alcohol) [facility] Utilities Answer Date Recorded In the past 12 months has [employer], gas, oil, or water company threatened [...] often do you attend chur ch or mandaen services? Never 02/08/2024 Do you belong to [...] medical care, and heating? Somewhat hard 02/08/2024 [facility] [place] of Occupat ional Health - Occupational Stress [...] st Contact Info) Description 11/08/2024 3:15 PM PRICING STRATEGIST Office Visit [facility] - Primary Care - [place] [address] [place] [phone] Grecia Solis APRN, CNP [address] [place] [address] documented as of this encounter Procedures Procedure [...] - 5.000 mIU/L 03/12/2024 1:04 PM CDT [email or web address] Blood Venipuncture / Unknown 03/12/2024 7:46 AM CDT 03/12/2024 7:46 AM CDT Grecia Solis APRN, CNP CHEMISTRY ORDER ESTELLA Final Result [facility] [address] [place] [address] * (ABNORMAL) CBC WITH AUTO DIFFERENTIAL (03/12/2024 7:46 AM CDT) WBC 5.18 4.00 - 12.00 10(3)/mcL 03/12/2024 12:32 PM CDT [email or web address] RBC 4.71 3.80 - 5.30 10(6)/mcL 03/12/2024 12:32 PM CDT [email or web address] LAB HEMOGLOBIN (HGB) 14.2 12.0 - 15.8 g/dL 03/12/2024 12:32 PM CDT [email or web address] LAB HEMATOCRIT (HCT) 44.2 36.0 - 47.0 % 03/12/2024 12:32 PM CDT [email or web address] LAB MCV 93.8 82.0 - 96.0 fL 03/12/2024 12:32 PM CDT [facility] MCH 30.1 26.0 - 34.0 pg 03/12/2024 12:32 PM CDT [email or web address] MCHC 32.1 31.0 - 36.0 g/dL 03/12/2024 12:32 PM CDT [email or web address] LAB PLATELET COUNT 205 140 - 440 10(3)/mcL 03/12/2024 12:32 PM CDT [facility] RDW 12.9 11.8 - 15.5 % 03/12/2024 12:32 PM CDT [facility] MPV 11.9 9.7 - 12.4 fL 03/12/2024 12:32 PM CDT [facility] NEUTROPHILS 50.5 47.0 - 73.0 % 03/12/2024 12:32 PM CDT [facility] LYMPHOCYTES 35.7 18.0 - 42.0 % 03/12/2024 12:32 PM CDT [facility] MONOCYTES 9.7 4.0 - 12.0 % 03/12/2024 12:32 PM CDT [facility] EOSINOPHILS 2.9 0.0 - 5.0 % 03/12/2024 12:32 PM CDT [facility] BASOPHILS 1.2(H) 0.0 - 1.0 % 03/12/2024 12:32 PM CDT [facility] ABSOLUTE NEUTROPHILS 2.62 1.60 - 7.70 10(3)/mcL 03/12/2024 12:32 PM CDT [facility] ABSOLUTE LYMPHOCYTES 1.85 1.30 - 3.20 10(3)/mcL 03/12/2024 12:32 PM CDT [facility] ABSOLUTE MONOCYTES 0.50 0.20 - 1.00 10(3)/mcL 03/12/2024 12:32 PM CDT [email or web address] ABSOLUTE EOSINOPHIL 0.15 0.00 - 0.40 10(3)/mcL 03/12/2024 12:32 PM CDT [email or web address] ABSOLUTE BASOPHILS 0.06 0.00 - 0.10 10(3)/mcL 03/12/2024 12:32 PM CDT [email or web address] LAB NRBC PER 100 WBC 0 03/12/20 12:32 PM CDT [email or web address] Blood Venipuncture / Unknown 03/12/2024 7:46 AM CDT 03/12/2024 7:46 AM CDT us Grecia Solis APRN, LEYDI HEMATOLOGY ORDE GINA Final Result [facility] [address] [place] [address] * (ABNORMAL) LIPID PANEL (03/12/2024 7:46 AM CDT) CHOLESTEROL 140 <200 mg/dL 03/12/2024 12:54 PM CDT [facility] TRIGLYCERIDES 39 <150 mg/dL 03/12/2024 12:54 PM CDT [facility] HDL CHOLESTEROL 58 >40 mg/dL 12:54 PM CDT [facility] LDL 74 <130 mg/dL 03/12/2024 12:54 PM CDT [facility] VLDL 8(L) 10 - 50 mg/dL 03/12/2024 12:54 PM CDT [facility] CHOL/HDL RATIO 2.4 0.0 - 4.4 03/12/2024 12:54 PM CDT [facility] NON-HDL CHOLESTEROL 82 <130 mg/dL 03/12/2024 12:54 PM CDT [facility] IS THE PATIENT REQUIRED TO BE FASTING? Yes 03/12/2024 12:54 PM CDT [facility] HAS THE PATIENT BEEN FASTING? Yes 03/12/2024 12:54 PM CDT [facility] Blood Venipuncture / Unknown 03/12/2024 7:46 AM CDT 03/12/2024 7:46 AM CDT Grecia Solis APRN, FOOD SPECIALIST CHEMISTRY ORDER ESTELLA Final Result Performing Organization Address City/[facility]/ZIP Co de Phone Number [facility] [address] [place] [address] * HEMOGLOBIN A1C W/ ESTIMATED GLUCOSE (03/12/2024 7:46 AM CDT) [facility] HGB-A1C 5.9 4.0 - 6.0 % 03/12/2024 12:57 PM CDT [facility] Est Average Glucose 122.6 mg/dL 03/12/2024 12:57 PM CDT [facility] Blood Venipuncture / Unknown 03/12/2024 7:46 AM CDT 03/12/2024 7:46 AM CDT Narrative [facility] - 03/12/2024 12:57 PM CDT HEMOGLOBIN A1C: DIABETIC PATIENTS: WELL-CONTROLLED: ?? 6.2 - 7.0 INTERMEDIATE WELL-CONTROLLED: ??7.0 - 9.0 POORLY-CONTROLLED: ??>9.0 Grecia Solis APRN, LEYDI CHEMISTRY ORDER ESTELLA Final Result Performing Organization Address City/[facility] de Phone Number [facility] [address] [place] [address] * HEPATITIS C ANTIBODY (03/12/2024 7:46 AM CDT) Pathologist [facility] hepatitis C antibody 0.10 <1 S/CO 03/12/2024 9:35 PM CDT [facility] Comment: Signal/Cutoff ratio ??< 0.79 is Nondetected Signal/Cutoff ratio 0.80-0.99 is Grayzone Signal/Cutoff ratio > 0.99 is Detected Supplemental assays are recommended if signal/cutoff ratio is >/=1.00. ??Signal/cutoff ratio result >/= 5.00 is 97% predictive of positivity for recombinant immunoblot assay (RIBA) and will be reported to the [place] Department of Public Health as required. Blood Venipuncture / Unknown 03/12/2024 7:46 AM CDT 03/12/2024 7:46 AM CDT us Grecia Solis APRN, CNP CHEMISTRY ORDER ESTELLA Final Result [facility] [address] [place] [address], * (ABNORMAL) CMP (COMPREHENSIVE METABOLIC PANEL) (03/12/2024 7:46 AM CDT) SODIUM 145 136 - 145 mmol/L 03/12/2024 12:54 PM CDT [facility] POTASSIUM 4.9 3.5 - 5.1 mmol/L 03/12/2024 12:54 PM CDT [facility] CHLORIDE 110(H) 98 - 107 mmol/L 03/12/2024 12:54 PM CDT [facility] CO2, VENOUS 23 22 - 30 mmol/L 03/12/2024 12:54 PM CDT [facility] ANION GAP 16.9 <18.0 mmol/L 03/12/2024 12:54 PM CDT [facility] GLUCOSE 108(H) 70 - 99 mg/dL 03/12/2024 12:54 PM CDT [facility] BUN 18 10 - 20 mg/dL 03/12/2024 12:54 PM CDT [facility] CREATININE, BLOOD 0.90 0.60 - 1.00 mg/dL 03/12/2024 12:54 PM CDT [facility] BUN/CREATININE RATIO 20 12 - 20 ratio 03/12/2024 12:54 PM CDT [facility] TOTAL PROTEIN 7.0 6.3 - 8.2 g/dL 03/12/2024 12:54 PM CDT [facility] ALBUMIN 4.2 3.5 - 5.0 g/dL 03/12/2024 12:54 PM CDT [facility] A/G RATIO 1.5 1.0 - 2.2 03/12/2024 12:54 PM CDT [facility] CALCIUM 9.8 8.7 - 10.5 mg/dL 03/12/2024 12:54 PM CDT [facility] T BILI 0.4 0.2 - 1.2 mg/dL 03/12/2024 12:54 PM CDT [facility] SGOT (AST) 20 5 - 34 U/L 03/12/2024 12:54 PM CDT [facility] SGPT (ALT) 35 0 - 55 U/L 03/12/2024 12:54 PM CDT [facility] ALKALINE PHOSPHATASE 83 40 - 150 U/L 03/12/2024 12:54 PM CDT [facility] IS THE PATIENT REQUIRED TO BE FASTING? No 03/12/2024 12:54 PM CDT [facility] GFR, ESTIMATED >60 >=60 03/12/2024 12:54 PM CDT [facility] Comment: Creatinine Clearance is the preferred criteria for selecting drug dose adjustments in renally impaired patients. ??The GFR is provided as additional pertinent clinical information. GFR is reported in mL/min/1.73 sq m. Calculation based on the Chronic Kidney Disease Epidemiology Collaboration (CKD- EPI) equation refit without adjustment for race. GFR, EST. >60 >=60 024 12:54 PM CDT [facility] GFR, EST. NONAFRICAN >60 >=60 03/12/2024 12:54 PM CDT [facility] Blood Venipuncture / Unknown 03/12/2024 7:46 AM CDT 03/12/2024 7:46 AM CDT us Grecia Solis APRN, CNP CHEMISTRY ORDER ESTELLA Final Result [facility] [place] [address] documented in this encounter Visit Diagnoses Diagnosis Preventative health care (Adult) Routine general medical examination at a health care facility documented in this encounter Care Teams Auto Inspector Relationship Specialty Start Date End Date Grecia Solis APRN, CNP [address] [place] [address] PCP - General Advanced Practice Nurse 02/09/24 documented as of this encounter
--- OUTSIDE RECORDS SUMMARY | 2024-11-02 23:10 | XMS_ITS | Encounter Summary ---
Author Organization [facility] Address [address] [facility] [place] [address] Phone Care Team Providers Care Collection Advisor Name Role Phone Grecia Solis APRN, CNP Primary Care P rosanne Reason for Referral * Radiology Services (Routine) - Closed Specialty Diagnoses / Procedures Referred By Cee ann Referred To Contact Radiology Diagnoses Encounter for screening mammogram for malignant neoplasm of breast Procedures ITALO SCREENING BILATERAL DIGITAL W CAD W Grecia Beltre APRN, CNP [address] [place] [address] Phone: tel: fax: Referral ID Status Reason Start Date Expiration Date Visits Re quested Visits Authorized [id number] Closed 02/09/2024 1 1 Reason for Visit * Radiology Services (Routine) - Closed Specialty Diagnoses / Procedures Referred By Cee ann Referred To Contact Radiology Diagnoses Encounter for screening mammogram for malignant neoplasm of breast Procedures ITALO SCREENING BILATERAL DIGITAL W CAD W Grecia Beltre APRN, CNP [address] [place] [address] Phone: tel: fax: Referral ID Status Reason Start Date Expiration Date Visits Re quested Visits Authorized [id number] Closed 02/09/2024 1 1 Encounter Details Date Type Department Care Team (Latest Contact Info) Description 02/10/2024 2:50 PM CDT - 02/10/2024 11:59 PM CDT Hospital Encounter [facility] Mammography [address] [place] [address] Grecia Solis APRN, SUPPRESSION CREW LEADER [address] [place] [address] Discharge Disposition: Discharged to home or Selfcare Social History Tobacco Use Types Packs/Day Years Used Date Smoking Tobacco: Never Smokeless Tobacco: Never Alcohol Use Standard Drinks/Week Comments Not Currently 0 (1 standard drink = 0.6 oz pur e alcohol) [facility] Utilities Answer Date Recorded In the [...] often do you attend chur ch or adventist services? Never 02/08/2024 Do you belong to any clubs o r organizations such as faith groups, unions, fraternal or athletic groups, or [...] medical care, and heating? Somewhat hard 02/08/2024 [facility] - Occupational Stress Questionnaire Answer Date Recorded [...] st Contact Info) Description 11/08/2024 3:15 PM PLOW SHAKER Office Visit [facility] - Primary Care - Stephen [address] [place] [address] Grecia Solis APRN, LEYDI [address] [place] [address] documented as of this encounter Procedures Procedure Name Priority Date/Time Associated Diagnosis Comments [facility] SCREENING BILATERAL DIGITAL W CAD W RAJI [...] Jennifer Post M.D. ? ll/penrad:02/10/2024 16:54:24 ?? Health Outcomes Liaison(s): Leigha ?? ADRIAN Soto)(M), [facility] letter sent: Additional Imaging ?? Reading location: [facility] BI-RADS: 0 Additional Imaging Evaluation Needed [...] results. Electronically signed by: Jennifer alonso/keke:02/10/2024 16:54:24 Health Outcomes Liaison(s): RT Db(R)(M), [facility] letter sent: Additional Imaging Reading location: [facility] BI-RADS: 0 Additional Imaging Evaluation Needed Grecia Solis APRN, CNP IMAlfie MAMMO ORDER ESTELLA Final Result documented in this encounter Visit Diagnoses Diagnosis Encounter for screening mammogram for malignant neoplasm of breast Other screening mammogram documented in this encounter Care Teams Collection Advisor Relationship Specialty Start Date End Date Grecia Solis APRN, CNP [address] [place] [address] PCP - General Advanced Practice Nurse 02/09/24 documented as of this encounter
--- OUTSIDE RECORDS SUMMARY | 2024-11-02 23:10 | XMS_ITS | Encounter Summary ---
Author Organization [email or web address] Care Team Providers Care Financial Wellness Coach Name Role Phone Grecia Solis APRN, CNP Primary Care P rosanne Encounter Details Date Type Department Care Team (Latest Contact Info) Description 03/10/2024 Travel Social History Tobacco Use Types Packs/Day Years Used Date Smoking Tobacco: Never Smokeless Tobacco: Never Alcohol Use Standard Drinks/Week Comments Not Currently 0 (1 standard drink = 0.6 oz pur e alcohol) [facility] Utilities Answer Date Recorded In the past 12 months has [employer], gas, oil, or water company threatened [...] week 02/08/2024 How often do you attend [facility] or restorationist services? Never 02/08/2024 Do you belong to any clubs o r organizations such as shinto groups, unions, fraternal or athletic groups, or [...] medical care, and heating? Somewhat hard 02/08/2024 [facility] - Occupational Stress Questionnaire Answer Date [...] to sleep or slept in a senior care (including now)? No 02/08/2024 Comments No Sex and Gender Information Value Date Recorded Sex Assigned at Not on file Legal Sex Female 7:18 PM CDT Gender Identity Not on file Sexual Orientation Not on file documented as of this encounter Plan of Treatment Upcoming Encounters Date Type Department Care Team (Late st Contact Info) Description 11/08/2024 3:15 PM SALES SERVICE EXECUTIVE [facility] - Primary Care - Stephen [address] [place] [address] Grecia Solis APRN, LEYDI [address] [place] [address] documented as of this encounter Visit Diagnoses Not on filedocumented in this encounter Care Teams Financial Wellness Coach Relationship Specialty Start Date End Date Grecia Solis APRN, LIQUOR RUNNER [address] [place] [address] PCP - General Advanced Practice Nurse 02/09/24 documented as of this encounter
--- OUTSIDE RECORDS SUMMARY | 2024-11-02 23:10 | XMS_ITS | Encounter Summary ---
Author Organization [facility] Address [address] [facility] [place] [address] Phone Care Team Providers Care Cafeteria Food Server Name Role Phone Grecia Solis APRN, CNP Primary Care P rovider Tonja Yoo APRN, CNP Unavailable [phone] Reason for Referral * Consult, Test & Initiate Treatment (Routine) - Closed Specialty Diagnoses / Procedures Referred By Cee ann Referred To Contact Diagnoses Suspected sleep apnea Daytime sleepiness Restless sleeper Tonja Yoo APRN, LEYDI [address] [address] Phone: tel: fax: [facility] [address] [place] [address] Phone: tel: fax: Referral ID Status Reason Start Date Expiration Date Visits Re quested Visits Authorized [id number] Closed 04/09/2024 1 1 Scheduling Instructions Tayla is being referred for EDS. Please contact patient for scheduling questions or concerns. Reason for Visit * Reason Comments Sleep Apnea * Consult, Test & Initiate Treatment (Routine) - Closed Specialty Diagnoses / Procedures Referred By Cee ann Referred To Contact Diagnoses Suspected sleep apnea Grecia Solis APRN, CNP [address] [place] [address] Phone: tel: fax: [facility] Pulmonology & Sleep Medicine [facility] [address] [place] [address] Phone: tel: fax: Referral ID Status Reason Start Date Expiration Date Visits Re quested Visits Authorized [id number] Closed 03/18/2024 1 1 Encounter Details Date Type Department Care Team (Late st Contact Info) Description 04/09/2024 3:00 PM CDT Telemedicine [facility] Pulmonology & Sleep Medicine [facility] [address] [place] [address] Tonja Yoo APRN, METAL BUGGY OPERATOR [address] [address] Suspected sleep apnea (Primary Dx); Daytime sleepiness; Restless sleeper Social History Tobacco Use Types Packs/Day Years Used Date Smoking Tobacco: Never Smokeless Tobacco: Never Alcohol Use Standard Drinks/Week Comments Not Currently 0 (1 standard drink = 0.6 oz pur e alcohol) [facility] Utilities Answer Date Recorded In the past 12 months has e [employer], gas, oil, or water [employer] threatened to shut off services in your [...] often do you attend chur ch or sikhism services? Never 02/08/2024 Do you belong to any clubs o r organizations such as methodist groups, unions, fraternal or athletic groups, or [...] medical care, and heating? Somewhat hard 02/08/2024 [facility] [place] of Occupat ional Health - Occupational [...] or afternoons only. Avoid daytime napping. Avoid klzm-ydz-novsfhw medications such as allergy medicines. Avoid tobacco [...] month(s). Education materials sent via the patient's [employer] account. documented in this encounter Plan of Treatment Upcoming Encounters Date Type Department Care Team (Late st Contact Info) Description 11/08/2024 3:15 PM METAL BURNISHER Office Visit [facility] - Primary Care - Stephen [address] [place] [id number] Grecia Solis APRN, CNP [address] [place] [address] Scheduled Referrals Name Type Priority Associated Diagnoses Orde r Schedule SLEEP STUDY REFERRAL Outpatient Referral Routine Suspected sleep apnea Daytime sleepiness Restless sleeper Expected: 04/09/2024, Expires: 04/09/2025 documented as of this encounter Visit Diagnoses Diagnosis Suspected sleep apnea- Primary Daytime sleepiness Restless sleeper Sleep disturbance, unspecified documented in this encounter Care Teams Cafeteria Food Server Relationship Specialty Start Date End Date Grecia Solis APRN, CNP [address] [place] [address] PCP - General Advanced Practice Nurse 02/09/24 Tonja Yoo APRN, METAL BUGGY OPERATOR [address] [address] Nurse Practitioner Advanced Practice Nurse 04/09/24 documented as of this encounter
--- OUTSIDE RECORDS SUMMARY | 2024-11-02 23:10 | XMS_ITS | Encounter Summary ---
Author Organization [facility] Address [address] [place] [address] Phone Care Team Providers Care Hand Filer Balance Wheel Name Role Phone Grecia Solis APRN, CNP Primary Care P roluisaan Reason for Referral * Consult, Test & Initiate Treatment (Routine) - Closed Specialty Diagnoses / Procedures Referred By Cee ann Referred To Contact Diagnoses Screening for cervical cancer Grecia Solis APRN, CNP [address] [place] [address] Phone: tel: fax: [facility] Group - Obstetrics & Gynecology [facility] [address] [place] [address] Phone: tel: fax: Referral ID Status Reason Start Date Expiration Date Visits Re quested Visits Authorized [id number] Closed 02/09/2024 1 1 Scheduling Instructions Tayla is being referred for routine. Please contact patient for scheduling questions or concerns. * Radiology Services (Routine) - Closed Specialty Diagnoses / Procedures Referred By Cee ann Referred To Contact Radiology Diagnoses Encounter for screening mammogram for malignant neoplasm of breast Procedures ITALO SCREENING BILATERAL DIGITAL W CAD W RAJI Grecia Solis APRN, CNP [address] [place] [address] Phone: tel: fax: Referral ID Status Reason Start Date Expiration Date Visits Re quested Visits Authorized [id number] Closed 02/09/2024 1 1 Reason for Visit * Reason Comments Weight Management Encounter Details Date Type Department Care Team (Late st Contact Info) Description 02/09/2024 3:45 PM CDT Office Visit [facility] - Primary Care - [place] [address] [place] [address] Grecia Solis APRN, CNP [address] [place] [address] Class 3 severe obesity due to excess [...] drink = 0.6 oz pur e alcohol) [facility] Utilities Answer Date Recorded In the past 12 months has [employer], [employer], oil, or water [employer] threatened to shut off services in your [...] often do you attend chur ch or muslim services? Never 02/08/2024 Do you belong to any clubs o r organizations such as buddhist groups, unions, fraternal or athletic groups, or [...] medical care, and heating? Somewhat hard 02/08/2024 [facility] [place] of Occupat ional Health - Occupational Stress [...] place to sleep or slept in a mcc (including now)? No 02/08/2024 Comments No Sex [...] naloxone HCl (Narcan) 4 MG/0.1ML Liquid 1 [place] by Nasal route as needed for Opioid [...] APRN, LEYDI - 02/09/2024 3:45 PM CDT [facility] - [address] [address] Dept: [phone] Dept Loc: [phone] Loc Patient: Tayla Johnson : 1975 Sex: [...] index (BMI) of40.0 to 44.9 in adult ([facility]) [facility] health care (Adult) - COMPLETE BLOOD COUNT (CBC) WITH DIFF; Future - CMP (COMPREHENSIVE METABOLIC PANEL); Future - HEPATITIS C ANTIBODY; Future - HEMOGLOBIN A1C W/ ESTIMATED GLUCOSE; Future - LIPID PANEL; Future - THYROID SCREEN WITH REFLEX; Future Encounter for screening mammogram for malignant neoplasm of breast - [facility] SCREENING BILATERAL DIGITAL W CAD W RAJI; [...] st Contact Info) Description 11/08/2024 3:15 PM HAIRSPRING INSPECTOR [facility] [place] [address] [place] [address] Grecia Solis APRN, CNP [address] [place], [place] [address] Scheduled Referrals Name Type Priority Associated Diagnoses [...] 140 <200 mg/dL 03/12/2024 12:54 PM CDT [facility] TRIGLYCERIDES 39 <150 mg/dL 03/12/2024 12:54 PM CDT [facility] HDL CHOLESTEROL 58 >40 mg/dL 12:54 PM CDT [facility] LDL 74 <130 mg/dL 03/12/2024 12:54 PM CDT [facility] VLDL 8(L) 10 - 50 mg/dL 03/12/2024 12:54 PM CDT [facility] CHOL/HDL RATIO 2.4 0.0 - 4.4 03/12/2024 12:54 PM CDT [facility] NON-HDL CHOLESTEROL 82 <130 mg/dL 03/12/2024 12:54 PM CDT [facility] IS THE PATIENT REQUIRED TO BE FASTING? Yes 03/12/2024 12:54 PM CDT [facility] HAS THE PATIENT BEEN FASTING? Yes 03/12/2024 12:54 PM CDT [facility] Blood Venipuncture / Unknown 03/12/2024 7:46 AM CDT 03/12/2024 7:46 AM CDT Grecia Solis APRN, HISTORIC PRESERVATIONIST CHEMISTRY ORDER ESTELLA Final Result Performing Organization Address City/[facility]/ZIP Co de Phone Number [facility] [address] [place] [address] * HEMOGLOBIN A1C W/ ESTIMATED GLUCOSE (03/12/2024 7:46 AM CDT) HGB-A1C 5.9 4.0 - 6.0 % 03/12/2024 12:57 PM CDT [facility] Est Average Glucose 122.6 mg/dL 03/12/2024 12:57 PM CDT [facility] Blood Venipuncture / Unknown 03/12/2024 7:46 AM CDT 03/12/2024 7:46 AM CDT Narrative [facility] - 03/12/2024 12:57 PM CDT HEMOGLOBIN A1C: DIABETIC PATIENTS: WELL-CONTROLLED: ?? 6.2 - 7.0 INTERMEDIATE WELL-CONTROLLED: ??7.0 - 9.0 POORLY-CONTROLLED: ??>9.0 us Grecia Solis BATCHING OPERATOR, HISTORIC PRESERVATIONIST CHEMISTRY ORDER ESTELLA Final Result Performing Organization Address City/[facility]/ZIP Co de Phone Number [facility] [address] [place] [address] * HEPATITIS C ANTIBODY (03/12/2024 7:46 AM CDT) Pathologist [facility] hepatitis C antibody 0.10 <1 S/CO 03/12/2024 9:35 PM CDT [facility] Comment: Signal/Cutoff ratio ??< 0.79 is Nondetected Signal/Cutoff ratio 0.80-0.99 is Grayzone Signal/Cutoff ratio > 0.99 is Detected Supplemental assays are recommended if signal/cutoff ratio is >/=1.00. ??Signal/cutoff ratio result >/= 5.00 is 97% predictive of positivity for recombinant immunoblot assay (RIBA) and will be reported to the [place] Department of Public Health as required. Blood Venipuncture / Unknown 03/12/2024 7:46 AM CDT 03/12/2024 7:46 AM CDT us Grecia Solis APRN, CNP CHEMISTRY ORDER ESTELLA Final Result [facility] [address] [place] [address], * (ABNORMAL) CMP (COMPREHENSIVE METABOLIC PANEL) (03/12/2024 7:46 AM CDT) [facility] SODIUM 145 136 - 145 mmol/L 03/12/2024 12:54 PM CDT [facility] POTASSIUM 4.9 3.5 - 5.1 mmol/L 03/12/2024 12:54 PM CDT [facility] CHLORIDE 110(H) 98 - 107 mmol/L 03/12/2024 12:54 PM CDT [facility] CO2, VENOUS 23 22 - 30 mmol/L 03/12/2024 12:54 PM CDT [facility] ANION GAP 16.9 <18.0 mmol/L 03/12/2024 12:54 PM CDT [facility] GLUCOSE 108(H) 70 - 99 mg/dL 03/12/2024 12:54 PM CDT [facility] BUN 18 10 - 20 mg/dL 03/12/2024 12:54 PM T [facility] CREATININE, BLOOD 0.90 0.60 - 1.00 mg/dL 03/12/2024 12:54 PM T [facility] BUN/CREATININE RATIO 20 12 - 20 ratio 03/12/2024 12:54 PM T [facility] TOTAL PROTEIN 7.0 6.3 - 8.2 g/dL 03/12/2024 12:54 PM CDT [facility] ALBUMIN 4.2 3.5 - 5.0 g/dL 03/12/2024 12:54 PM T [facility] A/G RATIO 1.5 1.0 - 2.2 03/12/2024 12:54 PM T [facility] CALCIUM 9.8 8.7 - 10.5 mg/dL 03/12/2024 12:54 PM T [facility] T BILI 0.4 0.2 - 1.2 mg/dL 03/12/2024 12:54 PM T [facility] SGOT (AST) 20 5 - 34 U/L 03/12/2024 12:54 PM T [facility] SGPT (ALT) 35 0 - 55 U/L 03/12/2024 12:54 PM T [facility] ALKALINE PHOSPHATASE 83 40 - 150 U/L 03/12/2024 12:54 PM T [facility] IS THE PATIENT REQUIRED TO BE FASTING? No 03/12/2024 12:54 PM CDT [facility] GFR, ESTIMATED >60 >=60 03/12/2024 12:54 PM T [facility] Comment: Creatinine Clearance is the preferred criteria for selecting drug dose adjustments in renally impaired patients. ??The GFR is provided as additional pertinent clinical information. GFR is reported in mL/min/1.73 sq m. Calculation based on the Chronic Kidney Disease Epidemiology Collaboration (CKD- EPI) equation refit without adjustment for race. GFR, EST. >60 >=60 024 12:54 PM CDT [facility] GFR, EST. NONAFRICAN >60 >=60 03/12/2024 12:54 PM CDT [facility] Blood Venipuncture / Unknown 03/12/2024 7:46 AM CDT 03/12/2024 7:46 AM CDT Grecia Solis APRN, CNP CHEMISTRY ORDER ESTELLA Final Result [facility] [address] [place] [address] * COLOGUARD (02/25/2024 5:30 PM CDT) Cologuard [...] Ann. et al, N Engl J Med 2014;370(14):3673-9827) The normal value (reference range) for this assay is negative. COLOGUARD RE-SCREENING RECOMMENDATION: Periodic colorectal cancer screening is an important part of preventive healthcare for asymptomatic individuals at average risk for colorectal cancer. ??Following a negative Cologuard result, the [place] [employer] and U.S. Multi-Society Task Force screening guidelines recommend a Cologuard re-screening interval of 3 years. References: [place] [employer] Guideline for Colorectal Cancer Screening: https://www.cancer.org/cancer/umdxt-vhivcr-yalkmz/nqohigrfs-dmpfvkvvy-yrcrkwy/ acs-recommendations.html.; Eric RACHEL, Caroline LU, Afshin TY, Colorectal Cancer Screening: Recommendations for Physicians and Patients from the U.S. Multi-Society Task Force on Colorectal Cancer Screening , Am J Gastroenterology 2017; 112:5807-5778. TEST DESCRIPTION: Composite algorithmic analysis of stool [...] (Goran Sanders al, N Engl J Med 2014;370(14):4454-1532.) Cologuard may produce a false negative or false positive result (no colorectal cancer or precancerous polyp present at colonoscopy follow up). A negative Cologuard test result does not guarantee the absence of CRC or advanced adenoma (pre-cancer). The current Cologuard screening interval is every 3 years. ([place] [employer] and U.S. Multi-Society Task Force). Cologuard performance data in a 10,000 patient pivotal study using colonoscopy as the reference method can be accessed at the following location: www.[employer].Def[employer].Net/results. Additional description of the Cologuard test process, warnings and precautions can be found at www.[employer]erve[employer]rd.com. Stool 02/25/2024 5:30 PM CDT 02/28/2024 6:54 AM CDT Grecia Solis APRN, CNP BODY FLUIDS & S TOOLS ORDERABLES Final Result [address] [place] [address], [place] [phone] [facility] [address] [place] [address] * ITALO SCREENING BILATERAL DIGITAL W CAD [...] Jennifer Post M.D. ? gavin/keke:02/10/2024 16:54:24 ?? Miter Sawyer(s): Leigha ?? RT Charles(Lino)(M), [facility] letter sent: Additional Imaging ?? Reading location: [...] results. Electronically signed by: Jennifer alonso/keke:02/10/2024 16:54:24 Miter Sawyer(s): RT Db(R)(M), [facility] letter sent: Additional Imaging Reading location: [facility] BI-RADS: 0 Additional Imaging Evaluation Needed Grecia Solis APRN, HISTORIC PRESERVATIONIST IMG MAMMO ORDER ESTELLA Final Result documented [...] mammogram documented in this encounter Care Teams Hand Filer Balance Wheel Relationship Specialty Start Date End Date Grecia Solis APRN, HISTORIC PRESERVATIONIST [address] [place] [address] PCP - General Advanced Practice Nurse 02/09/24 documented as of this encounter
--- OUTSIDE RECORDS SUMMARY | 2024-11-02 23:10 | XMS_ITS | Encounter Summary ---
Author Organization [facility] Address [address] [place] [place] [address] Phone Care Team Providers Care County Surveyor Name Role Phone Grecia Solis APRN, CNP Primary Care P roluisana Reason for Referral * Radiology Services (Routine) - Closed Specialty Diagnoses / Procedures Referred By Cee ann Referred To Contact Radiology Diagnoses Abnormal mammogram Procedures [facility] BREAST LIMITED Grecia Monahan APRN, CNP [address] [place] [address] Phone: tel: fax: Referral ID Status Reason Start Date Expiration Date Visits Re quested Visits Authorized [id number] Closed 02/12/2024 1 1 Reason for Visit * Radiology Services (Routine) - Closed Specialty Diagnoses / Procedures Referred By Cee ann Referred To Contact Radiology Diagnoses Abnormal mammogram Procedures [facility] BREAST LIMITED Grecia Monahan APRN, CNP [address] [place] [address] Phone: tel: fax: Referral ID Status Reason Start Date Expiration Date Visits Re quested Visits Authorized [id number] Closed 02/12/2024 1 1 Encounter Details Date Type Department Care Team (Latest Contact Info) Description 03/05/2024 1:52 PM CDT - 03/05/2024 11:59 PM CDT Hospital Encounter [facility] Ultrasound [address] [place] [address] Grecia Solis APRN, JEWELER APPRENTICE [address] [place] [address] Discharge Disposition: Discharged to home or Selfcare Social History Tobacco Use Types Packs/Day Years Used Date Smoking Tobacco: Never Smokeless Tobacco: Never Alcohol Use Standard Drinks/Week Comments Not Currently 0 (1 standard drink = 0.6 oz pur e alcohol) [facility] Utilities Answer Date Recorded In [...] often do you attend chur ch or orthodox services? Never 02/08/2024 Do you belong to any clubs o r organizations such as orthodoxy groups, unions, fraternal or athletic groups, or [...] medical care, and heating? Somewhat hard 02/08/2024 [facility] [place] of Occupat ional Health - Occupational Stress [...] st Contact Info) Description 11/08/2024 3:15 PM STERILE PROCESSING TECHNICIAN Office Visit [facility] - Primary Care - [place] [address] [place] [address] Grecia Solis APRN, JEWELER APPRENTICE [address] [place] [address] documented as of this encounter Procedures Procedure [...] is made [facility] exam [facility] BRE[facility] TISSUE:There are scattered fibroglandular [...] Abimbola White M.D. ? ab/:03/05/2024 14:28:59 ?? Middleware Administrator(s): Leigha ?? RT Charles(Lino)(M), [facility]; Gabbi ??LOY Gonzales, [facility] letter sent: Jerica 3 Followup ?? Reading location: [facility] OVERALL STUDY BIRADS: 3 Probably [...] is made to exam dated: 02/10/2024 [facility]. BREAST TISSUE:There are scattered fibroglandular densities in [...] signed by: Abimbola White M.D. ab/:03/05/2024 14:28:59 Middleware Administrator(s): RT Db(R)(M), [facility]; Gabbi Gonzales RDMS OBGYN, [facility] letter sent: Birad 3 Followup Reading location: [facility] OVERALL STUDY BIRADS: 3 Probably benign us Grecia Solis APRN, CNP IMAlfie MAMMO ORDER ESTELLA Final Result documented in this encounter Visit Diagnoses Diagnosis Abnormal mammogram Abnormal mammogram, unspecified documented in this encounter Care Teams County Surveyor Relationship Specialty Start Date End Date Grecia Solis APRN, CNP [address] [place] [address] PCP - General Advanced Practice Nurse 02/09/24 documented as of this encounter
--- OUTSIDE RECORDS SUMMARY | 2024-11-02 23:10 | XMS_ITS | Encounter Summary ---
Author Organization [employer] Care Team Providers Care Stenocaptioner Name Role Phone Grecia Solis APRN, CNP Primary Care P rosanne Encounter Details Date Type Department Care Team (Latest Contact Info) Description 03/16/2024 Travel Social History Tobacco Use Types Packs/Day Years Used Date Smoking Tobacco: Never Smokeless Tobacco: Never Alcohol Use Standard Drinks/Week Comments Not Currently 0 (1 standard drink = 0.6 oz pur e alcohol) [facility] Utilities Answer Date Recorded In the past 12 months has [employer] electric, gas, oil, or water company threatened [...] week 02/08/2024 How often do you attend [facility] or cheondoism services? Never 02/08/2024 Do you belong to any clubs o r organizations such as pentecostal groups, unions, fraternal or athletic groups, or [...] medical care, and heating? Somewhat hard 02/08/2024 [facility] - Occupational Stress Questionnaire Answer Date [...] st Contact Info) Description 11/08/2024 3:15 PM QUALITY ENGINEER MEDICAL DEVICE Office [facility] - Primary Care - [place] [address] [place] [address] Grecia Solis APRN, LEYDI [address] [place] [address] documented as of this encounter Visit Diagnoses Not on filedocumented in this encounter Care Teams Stenocaptioner Relationship Specialty Start Date End Date Grecia Solis APRN, DIRECTOR OF DEMENTIA OPERATIONS [address] [place] [address] PCP - General Advanced Practice Nurse 02/09/24 documented as of this encounter
--- OUTSIDE RECORDS SUMMARY | 2024-11-02 23:10 | XMS_ITS | Encounter Summary ---
Author Organization [facility] Address [address] [place] [address] Phone Care Team Providers Care Tool Grinder Operator Surface Name Role Phone Grecia Solis APRN, CNP Primary Care P rosanne Reason for Visit * Reason Onset Date Comments Medication Management 02/16/2024 Encounter Details Date Type Department Care Team (Late st Contact Info) Description 02/16/2024 Telephone [facility] [address] [place] [address] Grecia Solis APRN, IT SUPPORT SPECIALIST [address] [place] [address] Medication Management Social History Tobacco Use Types Packs/Day Years Used Date Smoking Tobacco: Never Smokeless Tobacco: Never Alcohol Use Standard Drinks/Week Comments Not Currently 0 (1 standard drink = 0.6 oz pur e alcohol) [facility] Utilities Answer Date Recorded In the past 12 months has [employer], gas, oil, or water [employer] threatened to shut off services in your [...] week 02/08/2024 How often do you attend [facility] or christianity services? Never 02/08/2024 Do you [...] medical care, and heating? Somewhat hard 02/08/2024 [facility] of Occupat ional [facility] - Occupational Stress Questionnaire Answer Date [...] RFC: Avani is calling with PA from [facility] to let Grecia Solis know that her [employer] was denied due to it not being covered by insurance. Ref number is [id number]. Please call Tayla [phone] (relationship to patient self) back regarding above referenced patient. Patient's Provider is Will. documented in this encounter Plan of Treatment Upcoming Encounters Date Type Department Care Team (Late st Contact Info) Description 11/08/2024 3:15 PM CORPORATE QUALITY ASSURANCE MANAGER [facility] - Primary Care - [place] [address] [place] [phone] Grecia Solis APRN, IT SUPPORT SPECIALIST [address] [place] [address] documented as of this encounter Visit Diagnoses Not on filedocumented in this encounter Care Teams Tool Grinder Operator Surface Relationship Specialty Start Date End Date Grecia Solis APRN, CNP [address] [place] [address] PCP - General Advanced Practice Nurse 02/09/24 documented as of this encounter
--- OUTSIDE RECORDS SUMMARY | 2024-11-02 23:10 | XMS_ITS | Encounter Summary ---
Author Organization [employer] Care Team Providers Care Corner Block Cutter Name Role Phone Grecia Solis APRN, CNP [...] Recorded In the past 12 months has [employer], gas, oil, or water company threatened [...] do you attend [facility] or buddhist services? Never 02/08/2024 Do you [...] care, and heating? Somewhat hard 02/08/2024 [facility] - Occupational Stress [...] st Contact Info) Description 11/08/2024 3:15 PM MERCURY CRACKING TESTER Office Visit [facility] - Primary Care - [place] [address] [place] [address] Grecia Solis APRN, LEYDI [address] [place] [address] documented as of this encounter Visit Diagnoses Not on filedocumented in this encounter Care Teams Corner Block Cutter Relationship Specialty Start Date End Date Grecia Solis APRN, SEED PELLETER [address] [place] [address] PCP - General Advanced Practice Nurse 02/09/24 documented as of this encounter
--- OUTSIDE RECORDS SUMMARY | 2024-11-02 23:10 | XMS_ITS | Encounter Summary ---
Author Organization [employer] Care Team Providers Care Technical Trainer Name Role Phone Grecia Solis APRN, CNP Primary Care P rosanne Encounter Details Date Type Department Care Team (Latest Contact Info) Description 02/10/2024 Travel Social History Tobacco Use Types Packs/Day Years Used Date Smoking Tobacco: Never Smokeless Tobacco: Never Alcohol Use Standard Drinks/Week Comments Not Currently 0 (1 standard drink = 0.6 oz pur e alcohol) [facility] Utilities Answer Date Recorded In the past 12 months has [employer] electric, gas, oil, or water company threatened [...] week 02/08/2024 How often do you attend [facility] or confucianism services? Never 02/08/2024 Do you belong to any clubs o r organizations such as worship groups, unions, fraternal or athletic groups, or [...] 02/08/2024 [facility] - Occupational Stress Questionnaire Answer [...] st Contact Info) Description 11/08/2024 3:15 PM BRAND MANAGER Office Visit [facility] - Primary Care - [place] [address] [place] [address] Grecia Solis APRN, LEYDI [address] [place] [address] documented as of this encounter Visit Diagnoses Not on filedocumented in this encounter Care Teams Technical Trainer Relationship Specialty Start Date End Date Grecia Solis APRN, COMMUNITY ASSOCIATION MANAGER [address] [place] [address] PCP - General Advanced Practice Nurse 02/09/24 documented as of this encounter
--- OUTSIDE RECORDS SUMMARY | 2024-11-02 23:10 | XMS_ITS | Encounter Summary ---
Author Organization [facility] Address [address] [place] [address] Phone Care Team Providers Care Pole Shaver Name Role Phone Grecia Solis APRN, CNP Primary Care P roscottder Reason for Referral * Radiology Services (Routine) - Closed Specialty Diagnoses / Procedures Referred By Cee ann Referred To Contact Radiology Diagnoses Abnormal mammogram Procedures [facility] US BREAST LIMITED ARVIN Grecia Solis APRN, CNP [address] [place] [address] Phone: tel: fax: Referral ID Status Reason Start Date Expiration Date Visits Re quested Visits Authorized [id number] Closed 02/12/2024 1 1 * Radiology Services (Routine) - Closed Specialty Diagnoses / Procedures Referred By Cee ann Referred To Contact Radiology Diagnoses Abnormal mammogram Procedures [facility] DIAG BILATERAL DIGITAL W CAD W RAJI Grecia Solis APRN, CNP [address] [place] [address] Phone: tel: fax: Referral ID Status Reason Start Date Expiration Date Visits Re quested Visits Authorized [id number] Closed 02/12/2024 1 1 Reason for Visit * Reason Onset Date Comments Results 02/12/2024 Mamm Medication Refill 02/12/2024 Encounter Details Date Type Department Care Team (Late st Contact Info) Description 02/12/2024 Telephone [facility] - Primary Care - [place] [address] [place] [address] Grecia Solis APRN, LEYDI [address] [place] [address] Results (Mamm); Medication Refill Social History Tobacco Use Types Packs/Day Years Used Date Smoking Tobacco: Never Smokeless Tobacco: Never Alcohol Use Standard Drinks/Week Comments Not Currently 0 (1 standard drink = 0.6 oz pur e alcohol) [facility] Utilities Answer Date Recorded In the past 12 months has [employer], gas, oil, or water company threatened to [...] week 02/08/2024 How often do you attend [facility] or hoahaoism services? Never 02/08/2024 Do you belong to [...] medical care, and heating? Somewhat hard 02/08/2024 [facility] [place] of Occupat ional Health - Occupational Stress [...] send the following orders Bilateral Breast Ultrasound ([id number]) Bilateral Diag Mamm ([id number]) Thank you. * Telephone Encounter - Sarai Zapata RN - 02/12/2024 8:13 AM CDT ----- Message from Grecia Solis APRN, CNP sent at 02/11/2024 6:55 PM CDT ----- Additional imaging was ordered, please see if editor trade journal discussed it. documented in this encounter Plan of Treatment Upcoming Encounters Date Type Department Care Team (Late st Contact Info) Description 11/08/2024 3:15 PM SHIRT TURNER Office [facility] - Primary Care - [place] [address] [place] [id number] Grecia Slois APRN, CNP [address] [place] [address] documented as of this encounter Results * [facility] US BREAST LIMITED ARVIN (03/05/2024 2:25 PM CDT) Anatomical Region Laterality Modality breast Bilateral Ultrasound 03/05/2024 12:5 9 PM CDT Narrative 03/05/2024 2:45 PM CDT - [facility] DIAG BILATERAL DIGITAL W CAD W RAJI - [facility] US BREAST LIMITED ARVIN BILATERAL DIGITAL DIAGNOSTIC MAMMOGRAM 3D/2D WITH CAD WITH MEDIOLATERAL MEDIOLATERAL OBLIQUE CRANIOCAUDAL SPOT COMPRESSION AND TARGETED BILATERAL ULTRASOUND: 03/05/2024 The study was acquired using digital technology and interpreted from soft copy. Current study was also evaluated with Sulmaq version 7.2. 2D digital mammographic views, as well as 3D digital tomosynthesis were performed in the CC and MLO projections. ?? CLINICAL: Diagnostic study. Patient returns for additional imaging over suspected masses in both breasts. Sister with premenopausal breast cancer. ?? COMPARISONS: Comparison is made to exam dated: ??02/10/2024 [facility]. ?? BREAST TISSUE:There are scattered fibroglandular densities [...] Abimbola White M.D. ? ab/:03/05/2024 14:28:59 ?? Scrap Drop Engineer(s): Leigha ?? RT Charles(R)(M), [facility]; Gabbi ??LOY Gonzales, [facility] letter sent: Birad 3 Followup ?? Reading location: [facility] OVERALL STUDY BIRADS: 3 Probably [...] Comparison is made to exam dated: 02/10/2024 [facility]. BREAST TISSUE:There are scattered fibroglandular densities [...] signed by: Abimbola White M.D. ab/:03/05/2024 14:28:59 Scrap Drop Engineer(s): Leigha Soto, RT(R)(M), [facility]; LOY Collins, [facility] letter sent: Birad 3 Followup Reading location: [facility] OVERALL STUDY BIRADS: 3 Probably [...] made to exam dated: ??[facility]20[facility] ?? BREAST TISSUE:There are scattered fibroglandular densities [...] Abimbola White M.D. ? ab/:03/05/2024 14:28:59 ?? Scrap Drop Engineer(s): Leigha ?? ADRIAN Soto)(Samuel), [facility]; Gabbi ??LOY Gonzales, [facility] letter sent: Birad 3 Followup ?? Reading location: [facility] OVERALL STUDY BIRADS: 3 Probably [...] is made to exam dated: 02/10/2024 [facility]. BREAST TISSUE:There are scattered fibroglandular densities in [...] signed by: Abimbola White M.D. ab/:03/05/2024 14:28:59 Scrap Drop Engineer(s): Leigha Soto, RT(R)(M), [facility]; Gabbi Gonzales RDMS OBBRIANNA, [facility] letter sent: Jerica 3 Followup Reading location: [facility] OVERALL STUDY BIRADS: 3 Probably benign Grecia Solis APRN, CNP IMG MAMMO ORDER ESTELLA Final Result documented in this encounter Visit Diagnoses Diagnosis Abnormal mammogram- Primary Abnormal mammogram, unspecified Abnormal mammogram Abnormal mammogram, unspecified Abnormal mammogram Abnormal mammogram, unspecified documented in this encounter Care Teams Pole Shaver Relationship Specialty Start Date End Date Grecia Solis APRN, CNP [address] [place] [address] PCP - General Advanced Practice Nurse 02/09/24 documented as of this encounter
--- OUTSIDE RECORDS SUMMARY | 2024-11-02 23:11 | XMS_ITS | Encounter Summary ---
Author Organization [facility] Address [address] [facility] [place] [address] Phone Care Team Providers Care Retail Marketing Specialist Name Role Phone Luca May Primary Care Provider [phone] Reason for Visit * Reason Onset Date Comments New Patient 01/07/2024 Encounter Details Date Type Department Care Team (Late st Contact Info) Description 01/07/2024 Telephone [facility] [address] [place] [address] Provider, None [place] New Patient [...] PM CDT ----- Regarding: New Patient [facility] Primary Provider Request Insurance of patient: [employer] Name of person calling: Tayla Relationship to patient: Self Preferred phone number: [phone] Alternate phone number: Region / Office location preference: [place] Provider preference (male/female, specific provider name): Grecia Solis Willing to see someone other than physician, such as DAIRY STORE MANAGER, PA, resident? Yes Patient reason for appointment/any current symptoms: Est Care Other information (including need for diplomatic interpreter): no documented in this encounter Plan of Treatment Upcoming Encounters Date Type Department Care Team (Late st Contact Info) Description 11/08/2024 3:15 PM MANAGER ASSURANCE Office Visit [facility] - Primary Care - [place] [address] [place] [address] Grecia Solis APRN, CNP [address] [place] [address] documented as of this encounter Visit Diagnoses Not on filedocumented in this encounter Care Teams Retail Marketing Specialist Relationship Specialty Start Date End Date Luca May PAC [address] [place] [address] PCP - General Physician Tobacco Prizer 04/02/23 02/08/24 documented as of this encounter
--- OUTSIDE RECORDS SUMMARY | 2024-11-02 23:11 | XMS_ITS | Encounter Summary ---
Author Organization [employer] Care Team Providers Care Vice President Sales Name Role Phone Luca May VISHNU Primary Care Provider [phone] Encounter Details Date Type Department Care Team (Latest Contact Info) Description 02/08/2024 Travel Social History Tobacco Use Types Packs/Day Years Used Date Smoking Tobacco: Never Smokeless Tobacco: Never Alcohol Use Standard Drinks/Week Comments Not Currently 0 (1 standard drink = 0.6 oz pur e alcohol) [facility] Utilities Answer Date Recorded In the past 12 months has [employer], gas, oil, or water [facility] threatened to shut off services in your [...] week 02/08/2024 How often do you attend [facility] or episcopalian services? Never 02/08/2024 Do you belong to [...] medical care, and heating? Somewhat hard 02/08/2024 [facility] of Occupat ional [facility] - Occupational Stress Questionnaire Answer Date [...] long term (including now)? No 02/08/2024 Comments Unknown Sex [...] st Contact Info) Description 11/08/2024 3:15 PM APPLICATIONS PROJECT MANAGER Office Visit [facility] - Primary Care - [place] [address] [place] [address] Grecia Solis APRN, ALUMINUM SIDING APPLICATOR [address] [place] [id number] documented as of this encounter Visit Diagnoses Not on filedocumented in this encounter Care Teams Vice President Sales Relationship Specialty Start Date End Date Luca May, PAC [address] [place] [address] PCP - General Physician Pharmaceutical Development Technician 04/02/23 02/08/24 documented as of this encounter
--- OUTSIDE RECORDS SUMMARY | 2024-11-02 23:11 | XMS_ITS | Encounter Summary ---
Author Organization [facility] Care Team Providers Care Patrol Sergeant Sheriff'S Office Name Role Phone Luca May Primary Care Provider [phone] Encounter Details Date Type Department Care Team [...] st Contact Info) Description 11/08/2024 3:15 PM HARD ROCK DRILL OPERATOR Office Visit [facility] - Primary Care - [place] [address] [place] [address] Grecia Solis, MILKING MACHINE MECHANIC, OPERATORS TEACHER [address] [place] [address] documented as of this encounter Visit Diagnoses Not on filedocumented in this encounter Care Teams Patrol Sergeant Sheriff'S Office Relationship Specialty Start Date End Date Luca May PAC [address] [place] [address] PCP - General Physician Athletic Trainer 04/02/23 02/08/24 documented as of this encounter
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
== END 2024-10-26 11:45 | disposition home or self-care (01) ==
PROVIDERS: Emergency Provider Nurse Practitioner
DX: J32.9 Chronic sinusitis, unspecified (principal); Z20.822 Contact with and (suspected) exposure to COVID-19; I10 Essential (primary) hypertension; F17.290 Nicotine dependence, other tobacco product, uncomplicated; F41.9 Anxiety disorder, unspecified; F32.A Depression, unspecified
CPT/HCPCS: 71046; 87426; 87804; 99213; G0463